=== PATIENT | male | born 1940 | race Caucasian/White ===

== ENCOUNTER 2017-08-16 16:47 | Emergency (ER) | payer MEDICARE, OTHER ==
[2017-08-16] MEDS ORDERED: Alum Hydroxide/Mag Hydroxide 30 ML, Lidocaine 2% 15 ML PO ONE ×2 (19:30)
[2017-08-16] MEDS ORDERED: Pantoprazole 40 MG Tab.CR PO ONE (20:25)
--- NOTE | 2017-08-16 20:25 | EDM.PDOC ---
ED HPI GENERAL MEDICAL PROBLEM - General Stated Complaint: CHEST PAIN Time Seen by Provider: 08/16/17 17:30 Source of Information: Reports: Patient History Limitations: Reports: No Limitations - History of Present Illness INITIAL COMMENTS - FREE TEXT/NARRATIVE: c/o epigastric burn after meals x 1w 2-3h after eating he has burning in epigastrium x 10-30 min, not had dyspepsia in past, no on PPI or H2 shree no f/c/d, no n/v burning ascends up under sternum ocurs sometimes in middle of night dec'd with Tums, 7-up ate lunch at 12:15 PM today, pain at 2:45 PM, better with Sprite, dec'd after arrival here on its own, gone completely after GI cocktail PCP Michael Roman at [facility], last saw 10d ago for annual exam no prior CV problems, had a EKG and u/s and other cardiac screen at [facility] in [place] 1y ago that was neg on prednisone since 2007 for PMR, not able to wean off without severe myalgias EKG here is neg except dec'd T in 1 and L that is likely old has inc'd BUN/creat 29/1.3 witn no comparison CBC, d-dimer, trop, CRP all neg calcium 10.5 and likely inc'd c/w mild dehydration here with NT at [place], no clinical indication for GB u/s, pt reports 2 sibs have had choly Upper Epigastric Pain Score (Numeric/FACES): 8 - Related Data Allergies Allergy/AdvReac Type Severity Reaction Status Date / Time No Known Allergies Allergy Verified 08/16/17 17:40 Home Meds: Home Meds Hydrochlorothiazide/Losartan [Hyzaar 100-25 MG] 1 tab PO DAILY 08/16/17 [History ] Naproxen 500 mg PO DAILY 08/16/17 [History] Omeprazole 20 mg PO DAILY #14 cap.cr 08/16/17 [Rx] amLODIPine [Norvasc] 10 mg PO BEDTIME 08/16/17 [History] predniSONE [Prednisone] 5 mg PO DAILY 08/16/17 [History] Past Medical History Cardiovascular History: Reports: Hypertension Social & Family History - Tobacco Use Smoking Status *Q: Former Smoker Used Tobacco, but Quit: Yes Month Tobacco Last Used: 40yrs ago - Caffeine Use Caffeine Use: Reports: Coffee, Soda - Recreational Drug Use Recreational Drug Use: No ED ROS GENERAL - Review of Systems Review Of Systems: See Below Constitutional: Reports: No Symptoms HEENT: Reports: No Symptoms Respiratory: Reports: No Symptoms Cardiovascular: Reports: No Symptoms Endocrine: Reports: No Symptoms GI/Abdominal: Reports: Abdominal Pain : Reports: No Symptoms Musculoskeletal: Reports: No Symptoms Skin: Reports: No Symptoms Neurological: Reports: No Symptoms Psychiatric: Reports: No Symptoms Hematologic/Lymphatic: Reports: No Symptoms Immunologic: Reports: No Symptoms ED EXAM, GENERAL - Physical Exam Exam: See Below Exam Limited By: No Limitations General Appearance: Alert, WD/WN, No Apparent Distress Ears: Normal External Exam Nose: Normal Inspection, Normal Mucosa, No Blood Throat/Mouth: Normal Inspection, Normal Lips, Normal Voice, No Airway Compromise Head: Atraumatic, Normocephalic Neck: Normal Inspection, Supple, Non-Tender Respiratory/Chest: No Respiratory Distress, Lungs Clear, Normal Breath Sounds, No Accessory Muscle Use, Chest Non-Tender Cardiovascular: Regular Rate, Rhythm, No Edema, No Gallop, No JVD, No Rub, Other (2/6 ESTEVAN at [facility]) GI/Abdominal: Normal Bowel Sounds, Soft, No Organomegaly, No Distention, No Mass , Other (1+ epigastric tender resolved completely after GI cocktail) Back Exam: Normal Inspection, Full Range of Motion, NT Extremities: Normal Inspection, Normal Range of Motion, Non-Tender, Normal Capillary Refill, No Pedal Edema Neurological: Alert, Oriented, CN II-XII Intact, Normal Cognition, No Motor/ Sensory Deficits Psychiatric: Normal Affect, Normal Mood Skin Exam: Warm, Dry, Intact, Normal Color, No Rash Lymphatic: No Adenopathy Course - Vital Signs Last Recorded V/S: Last Vital Signs Temp 36.4 C 08/16/17 17:00 Pulse 50 L 08/16/17 17:00 Resp 14 08/16/17 17:00 BP 163/74 H 08/16/17 17:00 Pulse Ox 100 08/16/17 17:00 - Orders/Labs/Meds Orders: Active Orders 24 hr Category Date Time Status EKG Documentation Completion [RC] ASDIRECTED Care 08/16/17 17:19 Ordered EKG 12 Lead [EK] Routine Ther 08/16/17 17:19 Ordered Labs: Laboratory Tests 08/16/17 08/16/17 08/16/17 Range/Units 17:30 17:30 17:30 WBC 8.8 (4.5-12.0) X10-3/uL RBC 4.53 (4.30-5.75) x10(6)uL Hgb 14.2 (11.5-15.5) g/dL Hct 40.2 (30.0-51.3) % MCV 88.8 (80-96) fL MCH 31.4 (27.7-33.6) pg MCHC 35.3 (32.2-35.4) g/dL RDW 13.5 (11.5-15.5) % Plt Count 261 (125-369) X10(3)uL MPV 8.2 (7.4-10.4) fL Neut % (Auto) 81.5 (46-82) % Lymph % (Auto) 10.5 L (13-37) % Kimble % (Auto) 7.0 (4-12) % Eos % (Auto) 1 (1.0-5.0) % Baso % (Auto) 1 (0-2) % Neut # (Auto) 7.3 (1.6-8.3) # Lymph # (Auto) 0.9 (0.6-5.0) # Kimble # (Auto) 0.6 (0.0-1.3) # Eos # (Auto) 0.0 (0.0-0.8) # Baso # (Auto) 0.0 (0.0-0.2) # D-Dimer, Quantitative < 100 L (100-400) ng/mL Sodium 137 (135-145) mmol/L Potassium 4.4 (3.5-5.3) mmol/L Chloride 99 L (100-110) mmol/L Carbon Dioxide 27 (23-29) mmol/L BUN 29 H (8-23) mg/dL Creatinine 1.3 (0.6-1.3) mg/dL Est Cr Clr Drug Dosing TNP Estimated GFR (MDRD) 54 L (>60) BUN/Creatinine Ratio 22.3 H (9-20) Glucose 118 H (80-116) mg/dL Calcium 10.5 H (8.6-10.2) mg/dL Total Bilirubin 1.2 (0.1-1.3) mg/dL AST 16 (5-27) IU/L ALT 23 (14-26) IU/L Alkaline Phosphatase 48 L (56-112) IU/L Troponin I (0.02-0.06) NG/ML C-Reactive Protein < 0.5 (0.0-1.0) mg/dL Total Protein 7.2 (6.0-8.0) g/dL Albumin 4.1 (3.2-4.6) g/dL Globulin 3.1 g/dL Albumin/Globulin Ratio 1.3 08/16/ Range/Units 17:30 WBC (4.5-12.0) X10-3/uL RBC (4.30-5.75) x10(6)uL Hgb (11.5-15.5) g/dL Hct (30.0-51.3) % MCV (80-96) fL MCH (27.7-33.6) pg MCHC (32.2-35.4) g/dL RDW (11.5-15.5) % Plt Count (125-369) X10(3)uL MPV (7.4-10.4) fL Neut % (Auto) (46-82) % Lymph % (Auto) (13-37) % Kimble % (Auto) (4-12) % Eos % (Auto) (1.0-5.0) % Baso % (Auto) (0-2) % Neut # (Auto) (1.6-8.3) # Lymph # (Auto) (0.6-5.0) # Kimble # (Auto) (0.0-1.3) # Eos # (Auto) (0.0-0.8) # Baso # (Auto) (0.0-0.2) # D-Dimer, Quantitative (100-400) ng/mL Sodium (135-145) mmol/L Potassium (3.5-5.3) mmol/L Chloride (100-110) mmol/L Carbon Dioxide (23-29) mmol/L BUN (8-23) mg/dL Creatinine (0.6-1.3) mg/dL Est Cr Clr Drug Dosing Estimated GFR (MDRD) (>60) BUN/Creatinine Ratio (9-20) Glucose (80-116) mg/dL Calcium (8.6-10.2) mg/dL Total Bilirubin (0.1-1.3) mg/dL AST (5-27) IU/L ALT (14-26) IU/L Alkaline Phosphatase (56-112) IU/L Troponin I < 0.01 L (0.02-0.06) NG/ML C-Reactive Protein (0.0-1.0) mg/dL Total Protein (6.0-8.0) g/dL Albumin (3.2-4.6) g/dL Globulin g/dL Albumin/Globulin Ratio Meds: Medications Discontinued Medications Generic Name Dose Route Start Last Admin Trade Name Freq PRN Reason Stop Dose Admin Al Hydroxide/Mg Hydroxide 30 0 ml 08/16/17 19:30 08/16/17 19:50 ml/ Lidocaine HCl 15 ml PO 08/16/17 19:31 45 ml ONETIME ONE Administration Departure - Departure Time of Disposition: 20:27 Disposition: Home, Self-Care 01 Condition: Good Clinical Impression: GERD (gastroesophageal reflux disease) - Discharge Information Prescriptions: Omeprazole 20 mg PO DAILY #14 cap.cr Instructions: Gastroesophageal Reflux Disease, Adult Referrals: Michael Hinojosa MD [Primary Care Provider] - Additional Instructions: To decrease acid production, take omeprazole 20 mg 1 tab daily for 2 weeks. To neutralize acid, take liquid antacid 1-2 tablespoons 2 hours after meals and bedtime for 1 week, then every 4 hours as needed. See your doctor in 2 days for additional recommendations. Return to ED if you are feeling worse. Call your Physician or Return to Emergency Department if: * Your condition worsens in any way. * You develop fever greater than 100.4. * You have vomitting that does not stop with medications. * You have pain that is not controlled with medications. - My Orders Last 24 Hours: My Active Orders 08/16/17 17:19 EKG Documentation Completion [RC] ASDIRECTED EKG 12 Lead [EK] Routine - Assessment/Plan Last 24 Hours: My Active Orders 08/16/17 17:19 EKG Documentation Completion [RC] ASDIRECTED EKG 12 Lead [EK] Routine
[2017-08-17] MEDS ORDERED: Pantoprazole 40 MG Tab.CR PO SCH (06:00)
== END 2017-08-16 20:35 | disposition home or self-care (01) ==
LOC: FB.ED 16:47
DX: K21.9 Gastro-esophageal reflux disease without esophagitis (principal); I10 Essential (primary) hypertension; Z87.891 Personal history of nicotine dependence
CPT/HCPCS: 36415; 80053; 84484; 85025; 85379; 86140; 93005; 99284; A4217; A9270

== ENCOUNTER 2021-07-20 10:16 | Emergency (ER) | payer MEDICARE, OTHER ==
--- NOTE | 2021-07-20 10:30 | EDM.PDOC ---
ED HPI GENERAL MEDICAL PROBLEM - General Stated Complaint: CHEST PAIN Time Seen by Provider: 07/20/21 10:25 Source of Information: Reports: Patient History Limitations: Reports: No Limitations - History of Present Illness INITIAL COMMENTS - FREE TEXT/NARRATIVE: 81 year-old male who reports had onset of chest pain yesterday morning and it lasted for about an hour he took omeprazole and it seemed to go away. It was a dull pain. It was in the central portion of his chest. Today at about 6:30 this morning. Developed pain in his right/central chest that was a dull pain. He had very large bowel movement following this and that didn't really seem to make his pain better or worse. He tried another omeprazole and also tried some Tums and some acetaminophen and he had no relief of his pain. He does report that walking and moving around seems to make his pain worse and rest seem to improve it. It does not seem to radiate. It was an 8/10 initially and now the pain has gone down to a 1-2/10. He did feel that he had some shortness of breath associated with this. There has been no nausea or vomiting. No cough. No fevers or chills. No hemoptysis. The pain does not seem to radiate. No diaphoresis. There are no other associated signs or symptoms. There are no other modifying factors. 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 Tums.) - Related Data Allergies Allergy/AdvReac Type Severity Reaction Status Date / Time Zzwwmvf-[id number]-KuJ Reductase Allergy Other Verified 07/20/21 10:31 Inhibitor [Jiekwrv-Mlj-Jym Reductase Inhibitor] Home Meds: Home Meds Hydrochlorothiazide/Losartan [Hyzaar 100-25 MG] 1 tab PO DAILY 08/16/17 [History] amLODIPine [Norvasc] 10 mg PO BEDTIME 08/16/17 [History] predniSONE [Prednisone] 5 mg PO DAILY 08/16/17 [History] Calcium Citrate/Vitamin D3 [Calcium Citrate with D Tablet] 1 tab PO DAILY 02/24/18 [History] Fish Oil/[place]-3 Fatty Acids [Fish Oil 1,000 MG] 1,000 mg PO DAILY 02/24/18 [History] Glucosamine/D3/Boswellia Ivonne [Osteo Bi-Flex Tablet] 1 tab PO DAILY 02/24/18 [History] Multivitamin [Multiple Vitamins] 1 tab PO DAILY 02/24/18 [History] Omeprazole 20 mg PO .3 DAYS PER WEEK 02/24/18 [History] Amoxicillin/Potassium Clav [Amox Tr-K Clv 875-125 mg Tab] 1 each PO BID 05/19/18 [History] Past Medical History Cardiovascular History: Reports: Afib, CAD, High Cholesterol, Hypertension, [place] Gastrointestinal History: Reports: Diverticulosis, GERD Musculoskeletal History: Reports: Other (See Below) (Polymyalgia rheumatica on prednisone.) - Past Surgical History Cardiovascular Surgical History: Reports: Coronary Artery Stent GI Surgical History: Reports: Colon, Colonoscopy Neurological Surgical History: Reports: Lumbar Spine (Back fusion) Musculoskeletal Surgical History: Reports: Shoulder Replacement (Right) Social & Family History - Tobacco Use Tobacco Use Status *Q: Unknown Ever Used Tobacco (Nonsmoker.) - Caffeine Use Caffeine Use: Reports: Coffee, Soda - Alcohol Use Alcohol Use History: No - Living Situation & Occupation Living situation: Reports: Occupation: Retired ED ROS GENERAL - Review of Systems Review Of Systems: See Below Constitutional: Denies: Fever, Chills, Malaise HEENT: Denies: Throat Pain, Throat Swelling Respiratory: Denies: Shortness of Breath, Cough Cardiovascular: Reports: Chest Pain, Dyspnea on Exertion. Denies: No Symptoms GI/Abdominal: Denies: Diarrhea, Nausea, Vomiting : Denies: Dysuria, Hematuria Musculoskeletal: Denies: Neck Pain, Shoulder Pain, Arm Pain Skin: Denies: Diaphoresis, Rash Neurological: Denies: Dizziness, Headache Hematologic/Lymphatic: Reports: Easy Bleeding. Denies: Easy Bruising ED EXAM, GENERAL - Physical Exam Exam: See Below Exam Limited By: No Limitations General Appearance: Alert, WD/WN, No Apparent Distress Eye Exam: Bilateral Eye: EOMI, Normal Inspection (Sclera are anicteric.) Ears: Normal External Exam, Hearing Loss Ear Exam: Bilateral Ear: Auricle Normal Nose: Normal Inspection, Normal Mucosa, No Blood Throat/Mouth: Normal Inspection, Normal Lips, Normal Oropharynx, Normal Voice, No Airway Compromise Head: Atraumatic, Normocephalic Neck: Normal Inspection, Supple, Non-Tender Respiratory/Chest: No Respiratory Distress, Lungs Clear, Normal Breath Sounds, No Accessory Muscle Use, Chest Non-Tender Cardiovascular: Normal Peripheral Pulses, No Edema, Irregularly Irregular Peripheral Pulses: 2+: Radial (L), Radial (R) GI/Abdominal: Normal Bowel Sounds, Soft, Non-Tender, No Mass Back Exam: Normal Inspection, Full Range of Motion Extremities: Normal Inspection, Normal Range of Motion, Non-Tender, No Pedal Edema, Normal Capillary Refill Neurological: Alert, Oriented, CN II-XII Intact, Normal Cognition, No Motor/Sensory Deficits Psychiatric: Normal Affect, Normal Mood Skin Exam: Warm, Dry, Intact, Normal Color, No Rash #1 Interpretation EKG Date: 07/20/21 Time: 10:16 Rhythm: A-Fib Rate (Beats/Min): 105 [place]: LAD-Left Truxton Deviation P-Wave: Absent QRS: Normal ST-T: Other (LVH with secondary repolarization abnormality.) QT: Prolonged (Prolonged QTc.) Comparison: Change From Previous EKG (Compared to an EKG performed on 08/16/2017, the atrial fibrillation is new.) EKG Interpretation Comments: Q's in 3 and aVF with possible old inferior infarct. Course - Vital Signs Last Recorded V/S: Last Vital Signs Temp 37.1 C 07/20/21 10:16 Pulse 86 07/20/21 10:16 Resp 20 07/20/21 10:16 BP 102/66 07/20/21 11:18 Pulse Ox 97 07/20/21 10:16 - Orders/Labs/Meds Orders: Active Orders 24 hr Category Date Time Status Chest 1V Frontal [CR] Stat Exams 07/20/21 10:33 Taken Nitroglycerin [Nitrostat] Med 07/20/21 10:54 Active 0.4 mg SL Q5M PRN Sodium Chloride 0.9% [Normal Saline] 1,000 ml Med 07/20/21 11:00 Active IV ASDIRECTED Sodium Chloride 0.9% [Saline Flush] Med 07/20/21 10:33 Active 10 ml FLUSH ASDIRECTED PRN Peripheral IV Insertion Adult [OM.PC] Routine Oth 07/20/21 10:33 Ordered EKG 12 Lead [EK] Routine Ther 07/20/21 10:33 Ordered Medication Orders Sodium Chloride (Normal Saline) 1,000 mls @ 100 mls/hr IV ASDIRECTED ALVAREZ Last Admin: 07/20/21 11:00 Dose: 100 mls/hr Documented by: MATIMAR Nitroglycerin (Nitroglycerin 0.4 Mg Tab.Sl) 0.4 mg SL Q5M PRN PRN Reason: Chest Pain Last Admin: 07/20/21 11:18 Dose: 0.4 mg Documented by: RALEIGH Sodium Chloride (Sodium Chloride 0.9% 10 Ml Syringe) 10 ml FLUSH ASDIRECTED PRN PRN Reason: Keep Vein Open Labs: Laboratory Tests 07/20/21 07/20/21 07/20/21 Range/Units 10:45 10:45 10:45 WBC 9.0 (3.2-10.1) x10-3/uL RBC 4.15 (3.90-5.90) x10(6)uL Hgb 12.8 L (12.9-17.7) g/dL Hct 39.1 (38.3-50.1) % MCV 94.3 (80.8-98.7) fL MCH 30.9 (27.0-33.3) pg MCHC 32.8 (28.7-35.3) g/dL RDW 15.2 H (12.4-15.0) % Plt Count 296 (117-477) x10(3)uL MPV 7.6 (6.7-11.0) fL Add Manual Diff Yes Neutrophils % (Manual) 89 H (46-82) % Band Neutrophils % 2 (0-6) % Lymphocytes % (Manual) 4 L (13-37) % Monocytes % (Manual) 5 (4-12) % Anisocytosis Rare Sodium 140 (135-145) mmol/L Potassium 4.1 (3.5-5.3) mmol/L Chloride 105 (100-110) mmol/L Carbon Dioxide 25 (21-32) mmol/L BUN 52 H (7-18) mg/dL Creatinine 1.8 H (0.70-1.30) mg/dL Est Cr Clr Drug Dosing TNP Estimated GFR (MDRD) 36 L (>60) BUN/Creatinine Ratio 28.9 H (9-20) Glucose 154 H (80-116) mg/dL Calcium 8.9 (8.6-10.2) mg/dL Magnesium 1.8 (1.8-2.5) mg/dL Total Bilirubin 0.5 (0.1-1.3) mg/dL AST 14 (5-25) IU/L ALT 22 (12-36) U/L Alkaline Phosphatase 89 (56-112) IU/L Troponin I 589.4 H* (4.0-60.3) pg/mL Total Protein 5.6 L (6.0-8.0) g/dL Albumin 3.1 L (3.2-4.6) g/dL Globulin 2.5 g/dL Albumin/Globulin Ratio 1.2 SARS-CoV-2 RNA (GIULIANA) (NEGATIVE) 07/20/21 07/20/21 Range/Units 12:15 16:15 WBC (3.2-10.1) x10-3/uL RBC (3.90-5.90) x10(6)uL Hgb (12.9-17.7) g/dL Hct (38.3-50.1) % MCV (80.8-98.7) fL MCH (27.0-33.3) pg MCHC (28.7-35.3) g/dL RDW (12.4-15.0) % Plt Count (117-477) x10(3)uL MPV (6.7-11.0) fL Add Manual Diff Neutrophils % (Manual) (46-82) % Band Neutrophils % (0-6) % Lymphocytes % (Manual) (13-37) % Monocytes % (Manual) (4-12) % Anisocytosis Sodium (135-145) mmol/L Potassium (3.5-5.3) mmol/L Chloride (100-110) mmol/L Carbon Dioxide (21-32) mmol/L BUN (7-18) mg/dL Creatinine (0.70-1.30) mg/dL Est Cr Clr Drug Dosing Estimated GFR (MDRD) (>60) BUN/Creatinine Ratio (9-20) Glucose (80-116) mg/dL Calcium (8.6-10.2) mg/dL Magnesium (1.8-2.5) mg/dL Total Bilirubin (0.1-1.3) mg/dL AST (5-25) IU/L ALT (12-36) U/L Alkaline Phosphatase (56-112) IU/L Troponin I 619.7 H* (4.0-60.3) pg/mL Total Protein (6.0-8.0) g/dL Albumin (3.2-4.6) g/dL Globulin g/dL Albumin/Globulin Ratio SARS-CoV-2 RNA (GIULIANA) Negative (NEGATIVE) Meds: Medications Generic Name Dose Route Start Last Admin Trade Name Freq PRN Reason Stop Dose Admin Sodium Chloride 1,000 mls @ 100 mls/hr 07/20/21 11:00 07/20/21 11:00 Normal Saline IV 100 mls/hr ASDIRECTED ALVAREZ Administration Nitroglycerin 0.4 mg 07/20/21 10:54 07/20/21 11:18 Nitroglycerin 0.4 Mg Tab.Sl SL 0.4 mg Q5M PRN Administration Chest Pain Sodium Chloride 10 ml 07/20/21 10:33 Sodium Chloride 0.9% 10 Ml Syringe FLUSH ASDIRECTED PRN Keep Vein Open Discontinued Medications Generic Name Dose Route Start Last Admin Trade Name Freq PRN Reason Stop Dose Admin Aspirin 324 mg 07/20/21 10:35 07/20/21 10:57 Aspirin 81 Mg Tab.Chew PO 07/20/21 10:36 324 mg ONETIME ONE Administration Sodium Chloride 500 mls @ 999 mls/hr 07/20/21 11:35 07/20/21 11:35 Normal Saline IV 07/20/21 12:05 999 mls/hr .BOLUS ONE Administration - Radiology Interpretation Free Text/Narrative:: Portable chest x-ray shows no acute disease per my read. - Re-Assessments/Exams Free Text/Narrative Re-Assessment/Exam: 07/20/21 11:20: Patient is awake and alert. He is rating his pain as a 1-2/10. His troponin is about 590. His creatinine is 1.8. The remainder of his labs are reassuring. IV normal saline is being established and the patient has received aspirin 324 mg orally. I have also ordered nitroglycerin to be given sublingually. Patient has taken his Eliquis this morning. With his chest pain and his elevated troponin and his history of coronary artery disease, he appears to be having an NSTEMI and will need cardiology specially services which are not available at [facility]. I will discuss this with the patient but he is followed by the [facility] system. We will continue close monitoring of the patient. 07/20/21 11:26: I discussed the above with the patient and his and they would want me to discuss the case with the doctors at [facility] in [place]. 07/20/21 11:58: After 1 sublingual nitroglycerin, the patient is chest pain- free. His blood pressure did drop slightly to 84 systolic. I am giving him a fluid bolus of normal saline 500 mL. He remains asymptomatic and remained chest pain-free and his blood pressure has already come up to the 90-100 systolic range. I discussed the patient's case with Dr. Orozco, hospitalist at [facility] in [place], and he has agreed to accept the patient in transfer. The patient will need to be transferred via ALS ambulance to [facility] in [place] for direct admission. We are waiting bed placement. For now, we will continue to closely monitor the patient. 07/20/21 16:09: We are still awaiting bed placement from [facility] in [place]. The nurse called and they are still awaiting a bed. The patient remains chest pain- free. He remains hemodynamically stable thus far. I will repeat his troponin as it is coming up on 6 hours after the initial troponin done earlier today. We will continue to monitor the patient. 07/20/21 17:00: Repeat troponin is unchanged. The patient remains chest pain- free and hemodynamically stable. There is now a bed available at [facility] in [place] and [facility] ambulance will be able to transport the patient but it will be about 40-45 minutes. We have informed the patient and his . Departure - Departure Time of Disposition: 17:55 Disposition: DC/Tfer to Acute Hospital 02 Reason for Transfer *Q: Other (Need for cardiology specially services which are not available at [facility].) Condition: Fair Clinical Impression: Non-STEMI (non-ST elevated myocardial infarction) Referrals: Michael Hinojosa MD [Primary Care Provider] - Sepsis Event Note (ED) - Focused Exam Vital Signs: Vital Signs Temp Pulse Resp BP BP Pulse Ox 07/20/21 11:18 102/66 07/20/21 10:16 37.1 C 86 20 117/66 97 - My Orders Last 24 Hours: My Active Orders 07/20/21 10:33 Chest 1V Frontal [CR] Stat Sodium Chloride 0.9% [Saline Flush] 10 ml FLUSH ASDIRECTED PRN Peripheral IV Insertion Adult [OM.PC] Routine EKG 12 Lead [EK] Routine 07/20/21 10:54 Nitroglycerin [Nitrostat] 0.4 mg SL Q5M PRN 07/20/21 11:00 Sodium Chloride 0.9% [Normal Saline] 1,000 ml IV ASDIRECTED - Assessment/Plan Last 24 Hours: My Active Orders 07/20/21 10:33 Chest 1V Frontal [CR] Stat Sodium Chloride 0.9% [Saline Flush] 10 ml FLUSH ASDIRECTED PRN Peripheral IV Insertion Adult [OM.PC] Routine EKG 12 Lead [EK] Routine 07/20/21 10:54 Nitroglycerin [Nitrostat] 0.4 mg SL Q5M PRN 07/20/21 11:00 Sodium Chloride 0.9% [Normal Saline] 1,000 ml IV ASDIRECTED
[2021-07-20] MEDS ORDERED: Sodium Chloride 0.9% 10 ML Syringe FLUSH PRN (10:33)
[2021-07-20] MEDS ORDERED: Aspirin 81 MG Tab.Chew PO ONE (10:35)
[2021-07-20] MEDS ORDERED: Nitroglycerin 0.4 MG Tab.SL SL PRN (10:54)
[2021-07-20] MEDS ORDERED: Sodium Chloride 0.9% 1,000 ML IV SCH (11:00)
[2021-07-20] MEDS ORDERED: Sodium Chloride 0.9% 500 ML IV ONE (11:35)
--- NOTE | 2021-07-22 12:23 | CR ---
CHEST ONE VIEW INDICATION: Chest pain to the right of center, mild shortness of breath. FINDINGS: An AP upright portable view of the chest 07/20/21 was obtained - no comparisons. The heart did not appear grossly enlarged. The aorta is tortuous with calcification in the arch. Overlying EKG leads are noted. An active infiltrate or effusion was not identified. Reverse shoulder arthroplasty is noted on the right. Degenerative changes and probable impingement are noted on the left at the shoulder joint. IMPRESSION: 1. No acute process. 2. ASD aorta. MTDD
--- OUTSIDE RECORDS SUMMARY | 2021-07-25 10:49 | XMSREPORT ---
:1940 Author Organization [facility] s Address [facility] [place] [address] Care Team Providers Name Role Phone Alessia Hinojosa MD Primary Care Provider Alessia Hinojosa MD Attributed Provider Reason for Referral (Routine) Status Reason Specialty Diagnoses / Procedures Referred By Karly newton To Contact Contact New Request Diagnoses Non-rheumatic mitral regurgitation Ted Wallace MD [address] [place] [phone] Scheduling Instructions This is an electronic referral. (Routine) Status Reason Specialty Diagnoses / Procedures Referred By Karly newton To Contact Contact New Request Diagnoses Non-rheumatic mitral regurgitation Rachel Guerra PA-C [address] [place] [address] Scheduling Instructions This is an electronic referral. Reason for Visit Auth/Cert Status Reason Specialty Diagnoses / Procedures Referred By Samia winston Referred To Contact Encounter Details Date Type Department Care Team Description 07/20/2021 - Hospital Encounter [facility], [facility] Procedure NSTEMI (non-ST 07/24/2021 [facility] See, Cristian Rodriguez MD [address] [place], [place] [id number] elevated myocardial SURG [facility] Ted Wallace MD [address], [place] [address] [phone] infarction) (FORMERLY [facility]) [address] Neeraj Orozco MD [address] [place] [address] [phone] [place] [address] Allergies Active Allergy Reactions Severity Noted Date Comments Hmg-Coa-R Inhibitors Statin Contraindication - 014 Myalgia Intolerance documented as of this encounter (statuses as of 07/24/2021) Medications Medication Sig Dispensed Refills Start End Status Date Date glucosamine-chondroiti Take 1 capsule 0 Active n (JOINT FLEX) 500-400 by mouth 1 mg capsule time per day Multiple Take 1 tablet 0 Active Vitamins-Minerals by mouth 1 (MULTIVITAMIN time per day THERAPEUTIC WITH MINERALS) tablet apixaban (ELIQUIS) 5 Take 5 mg by 0 Active MG tablet mouth 2 times a day acetaminophen (TYLENOL Take 650 mg by 0 Active ARTHRITIS) 650 mg CR mouth Every 8 tablet hours as needed albuterol HFA 2 puffs Every 0 Ac tive (PROVENTIL,PROAIR,VENT 4 hours as AVIS) 108 (90 BASE) needed mcg/ACT AERS losartan 100 mg Take 1 tablet 90 tablet 3 12/27/19 Active tabletIndications: (100 mg) by 21 Essential hypertension mouth 1 time per day omeprazole (PRILOSEC) Take 1 capsule 90 capsule 3 12/27/19 Active 20 mg (20 mg) by 21 capsuleIndications: mouth 1 time a Gastroesophageal day in the reflux disease without morning esophagitis predniSONE 5 mg Take 1 tablet 90 tablet 3 12/27/19 Active tabletIndications: (5 mg) by 21 Osteoarthritis, mouth 1 time generalized per day predniSONE 1 mg Take 1 tablet 90 tablet 3 12/27/19 Active tabletIndications: (1 mg) by 21 Osteoarthritis, mouth 1 time generalized per day 6 mg a day tiotropium-olodaterol INHALE 2 0 01/30/20 Active (STIOLTO RESPIMAT) INHALATIONS BY 21 2.5-2.5 mcg/puff MOUTH EVERY 24 inhaler HOURS FOR BREATHING ferrous sulfate (65 MG TAKE ONE 0 06/13/20 Active FE PER 325 MG TABLET) TABLET BY 21 325 mg tablet MOUTH EVERY DAY methylPREDNISolone Take by mouth 0 Active (MEDROL DOSEPAK) 4 MG 1 time per day tablet Take as directed on package. gabapentin (NEURONTIN) Take 1 capsule 60 capsule 0 07/15/20 1 Active 300 mg (300 mg) by capsuleIndications: mouth 2 times Chronic radicular low a day back pain oxyCODONE (OXY-IR) 5 Take 1 tablet 12 tablet 0 07/15/20 Active mg tablet (immediate (5 mg) by release)Indications: mouth every 6 Chronic radicular low hours as back pain needed for severe pain aspirin (ECOTRIN LOW Take 1 tablet 4 tablet 0 07/25/2007/29 Active STRENGTH) 81 MG (81 mg) by enteric coated mouth 1 time tabletIndications: per day for 4 Coronary artery days Continue disease involving till 07/29 [place] heart without given he is on angina pectoris, Eliquis as unspecified vessel or well. lesion type clopidogrel (PLAVIX) Take 1 tablet 365 tablet 0 07/25/20 Active 75 mg (75 mg) by tabletIndications: mouth 1 time Coronary artery per day CAD disease involving S/P stent [place] heart without placement. angina pectoris, unspecified vessel or lesion type metoprolol tartrate 75 Take 75 mg by 90 tablet 0 07/24/20 Active MG TABSIndications: mouth 2 times 21 Coronary artery a day Hold for disease involving SBP<=90 OR emmon[place] heart without DBP<=60 heart angina pectoris, rate <=55 unspecified vessel or lesion type hydroCHLOROthiazide 25 Take 1 tablet 90 tablet 3 12/27/1924/11 Discontinued mg tabletIndications: (25 mg) by (Stop Taking at Essential hypertension mouth 1 time Discharge) per day documented as of this encounter (statuses as of 07/24/2021) Active Problems Problem Noted Date Non-rheumatic mitral regurgitation 07/22/2021 NSTEMI (non-ST elevated myocardial infarction) 021 Coronary artery disease involving [place] heart without angina pectoris 01/11/2020 Arthritis of right shoulder region 08/30/2018 Status post reverse total shoulder replacement, right 08/30/2018 Chronic renal failure in pediatric patient, stage 3 (m oderate) 08/10/2018 Osteoarthritis, generalized 02/07/2016 PMR (polymyalgia rheumatica) 08/20/2009 Hyperlipidemia 09/14/2008 Benign prostatic hyperplasia without lower urinary tra ct symptoms 09/14/2008 Essential hypertension 09/14/2008 Diverticulosis of large intestine documented as of this encounter (statuses as of 07/24/2021) Resolved Problems Problem Noted Date Resolved Date Routine general medical examination at a health care 011 09/15/2013 facility Anemia 07/16/2011 07/30/2017 Special screening for malignant neoplasm of prostate 011 07/30/2017 Primary localized osteoarthrosis, lower leg 09/14/2008 09/15/2013 documented as of this encounter (statuses as of 07/24/2021) Immunizations Name Administration Dates Next Due Influenza Trivalent w/preserv 07/15/2011, 07/12/2010, 08/02 FLU VACCINE HIGH DOSE 65YR+(Fluzone) 07/04/2013 H1N1 Vaccine 09/20/2009 HEP B VACCINE 09/29/2006, 08/24/2006 INFLUENZA HIGH DOSE (FLUZONE) 65 YEARS 06/26/2020, , 07/08/2018, AND UP 07/08/2017, 07/06/2015, 07/04/2014 INFLUENZA SINGLE DOSE 0.5ML 6 MONTHS 06/13/2021, 07/17/2016 AND UP Moderna COVID-19 Vaccine 12/04/2020, 11/06/2020 Pneumococcal Conj PCV13 07/06/2015 Pneumococcal Polysaccharide PPSV23 02/06/2009 TD,not adsorbed 02/06/2009 TDAP 02/07/2016, 08/24/2006 Typhoid,ViCPs (Typhim) 08/24/2006 Zoster Live(Zostavax) 08/03/2008 Zoster Recombinant (Shingrix) 05/09/2019, 02/01/2019, 2018 documented as of this encounter Social History Tobacco Use Types Packs/Day Years Used Date Former Smoker Cigarettes 1 8 Quit: 10/05/18 73 Smokeless Tobacco: Never Used Alcohol Use Standard Drinks/Week Comments Not Currently 1 (1 standard drink = 0.6 oz pure alcoho l) one beer daily Alcohol Habits Answer Date Recorded How often do you have a drink containing alcohol? Never 07/21/2021 How many drinks containing alcohol do you have on a typical Not asked day when you are drinking? How often do you have six or more drinks on one occasion? 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 documented as of this encounter Last Filed Vital Signs Vital Sign Reading Time Taken Comments Blood Pressure 116/75 07/24/2021 10:48 AM CDT Pulse 90 07/24/2021 10:48 AM CDT Temperature 36.4 C (97.5 F) 07/24/2021 10:48 AM CDT Respiratory Rate 16 07/24/2021 10:48 AM CDT Oxygen Saturation 96% 07/24/2021 10:48 AM CDT Inhaled Oxygen Concentration - - Weight 68.9 kg (151 lb 14.4 oz) 07/22/2021 7:04 AM CDT Height 177.8 cm (5' 10") 07/20/2021 7:39 PM CDT Body Mass Index 21.8 07/20/2021 7:39 PM CDT documented in this encounter Functional Status Functional Status Response Date of Assessment Is the person deaf or does he/she have serious difficulty No 08/27/2018 hearing? Is this person blind or does he/she have difficulty No 08/27/2018 seeing even when wearing glasses? Do you have difficulty with walking, balance, climbing No 01/11/2020 stairs, or had a fall in the last 3 months? Does the patient have difficulty dressing or bathing? No 08/30/2018 Because of a physical, mental, or emotional condition; No 08/30/2018 does this person have difficulty doing errands alone such as visiting a doctor's office or shopping? Cognitive Status Response Date of Assessment Because of a physical, mental, or emotional condition; No 08/30/2018 does this person have serious difficulty concentrating, remembering, or making decisions? documented as of this encounter Discharge Summaries Not on filedocumented in this encounter Discharge Instructions Jocelyne Mcleod RN - 07/20/2021 Discharge Instructions for Heart Failure The heart is a muscle that pumps oxygen-rich blood to all parts of the body. When you have heart failure, the heart is not able to pump as well as it should. Blood and fluid may back up into the lungs (congestive heart failure). Some parts of the body dont get enough oxygen-rich blood to work normally. These problems lead to the symptoms of heart failure. Heart failure can occur due to an injury to the heart or from natural processes.You can control symptoms of heart failure with some lifestylechanges and by following your doctor's advice. Activity Ask your healthcare provider about an exercise program. You can benefit from simple activities such as walking or gardening. Exercising most days of the week can make you feel better. Don't be discouraged if your progress is slow at first. Rest as needed. Stop activity if you get symptoms such as chest pain, lightheadedness, or significant shortness of breath. Find activities that you enjoy, such as brisk walking, dancing, swimming, or gardening. These will help you stay active and strengthen your heart. Ask your healthcare provider about cardiac rehab. This is a program that helps you to exercise safely. Diet Follow a heart healthy diet. And make sure to limit the salt (sodium) in your diet. Salt causes yourbody to hold water. This makes your heart work harder as there is more fluid for the heart to pump. Limit your salt as directed by your healthcare provider by doing the following : Limit canned, dried, packaged, and fast foods. Don't add salt to your food. Season foods with herbs instead of salt. Watch how much liquids you drink. Drinking too much can make heart failure worse. Talk with your healthcare provider about how much you should drink each day. Limit the amount of alcohol you drink. It may harm your heart. Women should have no more than 1 drink a day. Men should have no more than 2 a day. When you eat out, ask that your meals have no added salt. Tobacco If you smoke, it's soto to quit. Smoking increases your chances of having a heart attack by harming the blood vessels that provide oxygen to your heart. This makes heart failure worse. Quitting smoking is the number one thing you can do to improve your health. Enroll in a stop-smoking program to improve your chances of success. Talk with your healthcare providerabout medicines or nicotine replacement therapy. Ask your healthcare provider about smoking cessation support groups. Medicine Take your medicines exactly as prescribed. Learn the names and purpose of each of your medicines. Keep an accurate medicine list and current dosages with you at all times. Don't skip doses. If you nicolasa dose of your medicine, take it as soon as you remember. If you miss a dose andit's almost time for your next dose, just wait and take your next dose at the normal time. Don't take a double dose. Ifyou are unsure, call your doctor's office. Make sure not to mix up your medicines or forget what you've taken the same day. Refill your prescriptions before you run out of medicine. Talk with your healthcare provider if you have trouble with the cost of your medicines. Weight monitoring Weigh yourself every day. A sudden weight gain can mean your heart failure is getting worse. Weigh yourself at the same time of day and in the same kind of clothes. Ideally, weigh yourself first thing in the morning after you empty your bladder, but before you eat breakfast. Your healthcare provider will show you how to track your weight. He or she will also tell you when you should call if you have a sudden, unexpected increase in your weight. In general, your healthcare provider may ask you to report if your weight goes up by more than 2 pounds (0.9 kg) in 1 day,5 pounds (2.27 kg) in 1 week, or whatever weight gain you were told by your doctor. This is a sign that you are retaining more fluid than you should be. Clues to weight gain include checking your ankles for swelling, or noticing you are short of breath when you lie down. Follow-up care Have follow-up appointment. Depending on the type and severity of heart failure you have, you may need follow-up as early as 7 days from hospital discharge. Keep appointments for checkups and lab teststhat are needed to check your medicines and condition. Recognize that your health and even survival depend on you following your medical recommendations. Symptoms Heart failure can cause a variety of symptoms, including: Shortness of breath Trouble breathing at night, especially when you lie down Swelling in the legs and feet or in the belly (abdomen) Becoming easily tired Irregular or rapid heartbeat Weakness or lightheadedness Swelling of the neck veins It's important to know what to do if symptoms get worse or if you develop signs of worsening heart failure. Keep track of how you feel each day. Report any changes to your healthcare provider. When to call your healthcare provider Call your healthcare provider right away if you have any of these signs of worsening heart failure: Sudden weight gain (more than 2 pounds in 1 day or 5pounds in 1 week, or whatever weight gain you were told to report by your doctor) Trouble breathing not related to being active New or increased swelling of your legs or ankles Swelling or pain in your abdomen Breathing trouble at night (waking up short of breath, needing more pillows to breathe) Frequent coughing that doesn't go away Feeling much more tired than usual Call 911 right away if you have: Severe shortness of breath, such that you can't catch your breath even whileresting Severe chest pain that does not resolve with rest or nitroglycerin [place], foamy mucus with cough and shortness of breath An ongoing rapid or irregular heartbeat Passing out or fainting Stroke symptoms such as sudden numbness or weakness on one side of your face, arm, or leg or sudden confusion, trouble speaking or vision changes Ivan last reviewed this educational content on 01/03/201919993775-2877 [employer]. All rights reserved. This information is not intended as a substitute for professional medical care. Always follow your healthcare professional's instructions. documented in this encounter Medications at Time of Discharge Medication Sig Dispensed Refills Start Date End Date aspirin (ECOTRIN LOW Take 1 tablet (81 4 tablet 0 07/25/20 21 07/29/2021 STRENGTH) 81 MG enteric mg) by mouth 1 coated tabletIndications: time per day for 4 Coronary artery disease days Continue till involving [place] heart 07/29 given he is without angina pectoris, on Eliquis as unspecified vessel or well. lesion type clopidogrel (PLAVIX) 75 mg Take 1 tablet (75 365 tablet 0 tabletIndications: mg) by mouth 1 Coronary artery disease time per day CAD involving [place] heart S/P stent without angina pectoris, placement. unspecified vessel or lesion type metoprolol tartrate 75 MG Take 75 mg by 90 tablet 0 021 TABSIndications: Coronary mouth 2 times a artery disease involving day Hold for [place] heart without SBP<=90 OR DBP<=60 angina pectoris, heart rate <=55 unspecified vessel or lesion type methylPREDNISolone (MEDROL Take by mouth 1 0 DOSEPAK) 4 MG tablet time per day Take as directed on package. gabapentin (NEURONTIN) 300 Take 1 capsule 60 capsule 0 07/1508/14/2021 mg capsuleIndications: (300 mg) by mouth Chronic radicular low back 2 times a day pain oxyCODONE (OXY-IR) 5 mg Take 1 tablet (5 12 tablet 0 2020 tablet (immediate mg) by mouth every release)Indications: 6 hours as needed Chronic radicular low back for severe pain pain ferrous sulfate (65 MG FE TAKE ONE TABLET BY 0 PER 325 MG TABLET) 325 mg MOUTH EVERY DAY tablet tiotropium-olodaterol INHALE 2 0 01/29/2021 (STIOLTO RESPIMAT) 2.5-2.5 INHALATIONS BY mcg/puff inhaler MOUTH EVERY 24 HOURS FOR BREATHING losartan 100 mg Take 1 tablet (100 90 tablet 3 12/26/2020 tabletIndications: mg) by mouth 1 Essential hypertension time per day omeprazole (PRILOSEC) 20 Take 1 capsule (20 90 capsule 3 mg capsuleIndications: mg) by mouth 1 Gastroesophageal reflux time a day in the disease without morning esophagitis predniSONE 5 mg Take 1 tablet (5 90 tablet 3 12/26/2020 tabletIndications: mg) by mouth 1 Osteoarthritis, time per day generalized acetaminophen (TYLENOL Take 650 mg by 0 ARTHRITIS) 650 mg CR mouth Every 8 tablet hours as needed albuterol HFA 2 puffs Every 4 0 (PROVENTIL,PROAIR,VENTOLIN hours as needed ) 108 (90 BASE) mcg/ACT AERS apixaban (ELIQUIS) 5 MG Take 5 mg by mouth 0 tablet 2 times a day glucosamine-chondroitin Take 1 capsule by 0 (JOINT FLEX) 500-400 mg mouth 1 time per capsule day Multiple Vitamins-Minerals Take 1 tablet by 0 (MULTIVITAMIN THERAPEUTIC mouth 1 time per WITH MINERALS) tablet day predniSONE 1 mg Take 1 tablet (1 90 tablet 3 12/26/2020 tabletIndications: mg) by mouth 1 Osteoarthritis, time per day 6 mg generalized a day documented as of this encounter Progress Notes Ted Wallace MD - 07/23/2021 3:41 PM CDT Images from the original note were not included. DAILY PROGRESS NOTE Michael Bacon is a 81yr old male admitted on 07/20/2021 7:17 PM. Impression / Plan 1.NSTEMI type 1 status post PCI to proximal LAD. Continue beta shree. He is on Plavix. Will continue aspirin till 07/29 then stop as he is on Eliquis. 2.Hypertension. Continue beta shree and ARB. Continue PRN medication 3.Atrial fibrillation. Rate controlled. Continue BB and heparin. After cath will resume 4.Episode of fever. Will obtain blood culture, CXR and UA. 5.PMR. Continue prednisone 6.Mitral regurgitation. There is severe MR on VIJAY. No PFO and no thrombus. Follow up with cardiologyoutpatient. 7.Chronic kidney disease. Creatinine is close to baseline 8.Code status. Full Code 9.DVT prophylaxis. Continue Eliquis. Interval History HPI Tele revealed AF rate controlled He had an episode of fever last night He underwent PCI to proximal LAD He is undergoing VIJAY and no evidence of thrombus. There is severe MR Review of Systems Review of Systems Constitutional: Positive for fever. Negative for chills. Respiratory: Negative for cough and shortness of breath. Cardiovascular: Negative for chest pain and leg swelling. Neurological: Negative for dizziness and headaches. Physical Exam Vital Signs: Temp: 97.1 F (36.2 C) | BP: 114/72 | Pulse: 85 | Resp: 17 | Pain Ratin (out of 10) | Weight: 68.9 kg (151 lb 14.4 oz) | O2 Device: NC - no humidity O2 Flow Rate (L/min): 2 l/min | SpO2: 93 % Maximum Temperatures (last 24 hours) Temperature Maximum Max Temp 101.1 F (38.4 C) Intake and Output: 07/22 0700 - 07/23 0659 In: - Out: 100 [Urine:100] Physical Exam Constitutional: General: He is not in acute distress. Appearance: Normal appearance. He is not ill-appearing. HENT: Head: Normocephalic and atraumatic. Eyes: General: Right eye: No discharge. Left eye: No discharge. Cardiovascular: Rate and Rhythm: Normal rate. Rhythm irregular. Pulmonary: Effort: Pulmonary effort is normal. Breath sounds: Normal breath sounds. Abdominal: General: Abdomen is flat. Bowel sounds are normal. There is no distension. Palpations: Abdomen is soft. Tenderness: There is no abdominal tenderness. There is no guarding. Musculoskeletal: General: Normal range of motion. Skin: General: Skin is warm. Neurological: Mental Status: He is alert and oriented to person, place, and time. Psychiatric: Mood and Affect: Mood normal. Behavior: Behavior normal. Labs Labs (Last day) 07/23/21842 - 07/23/21842 CBC 07/23/21 08 CBC WBC 4.0-11.0 (K/uL) 8.6 RBC 4.40-5.80 (M/uL) 4.22 Hemoglobin 13.5-17.5 (g/dL) 13.2 Hematocrit 40.0-50.0 (%) 39.6 MCV 80.0-98.0 (fL) 93.8 MCH 25.5-34.0 (pg) 31.3 MCHC 31.5-36.5 (g/dL) 33.3 RDW-CV 11.5-15.5 (%) 14.8 RDW-SD 35.5-50.0 (fl) 50.8 Platelet Count 140-400 (K/uL) 181 MPV 8.5-12.0 (fL) 9.7 07/23/21842 - 07/23/21 08 CHEMISTRY 07/23/21842 CHEMISTRY Glucose 70-99 (mg/dL) 83 Sodium 136-145 (meq/L) 136 Potassium 3.5-5.1 (meq/L) 3.9 Chloride 98-109 (meq/L) 105 CO2 20-29 (meq/L) 23 Anion Gap with K 6-20 (meq/L) 12 BUN 6-22 (mg/dL) 35 Creatinine 0.70-1.30 (mg/dL) 1.22 BUN/Creatinine Ratio 10.0-25.0 28.7 Calcium 8.5-10.5 (mg/dL) 8.9 eGFR >=60 (mL/min/1.73m2) 69 eGFR Non- >=60 (mL/min/1.73m2) 57 07/23/21842 - 07/23/21842 DIFFERENTIAL 07/23/21842 DIFFERENTIAL Seg Neut Absolute 1.8-8.0 (K/uL) 5.9 Lymphocytes Absolute 0.8-4.1 (K/uL) 1.0 Monocytes Absolute 0.0-1.0 (K/uL) 1.3 Eosinophils Absolute 0.0-0.7 (K/uL) 0.1 Basophil Absolute 0.0-0.2 (K/uL) 0.1 Immature Granulocyte Absolute 0.00-0.06 (K/uL) 0.16 Neutrophils Percent (%) 69.0 Neutrophils Abs. (Segs and Bands) (/uL) 5,900 Lymphocytes Percent (%) 11.7 Monocytes Percent (%) 15.1 Immature Granulocyte Percent (%) 1.9 Eosinophils Percent (%) 1.6 Basophil Percent (%) 0.7 Nucleated RBC (/100 WBC's) 0 07/22/21 1542 - 07/22/21 1542 ECG/EKG 07/22/21 1542 ECG/EKG EKG WAVEFORM Atrial fibrillation with premature ventricular or aberrantly conducted complexes Abnormal ECG When compared with ECG of 22-JUL-2021 13:43, No significant change was found Ventricular Rate: 74 BPM QRS Duration: 84 ms Q-T Interval: 410 ms QTc Calculation(Bazett): 455 ms Calculated R Anabel: -26 degrees Calculated T Anabel: 74 degrees 07/23/21 0843 - 07/23/21 0843 OTHER 07/23/21 0843 OTHER Age (Years) 81 Medical Decision making Medical Decision Making Rachel Brasher PA-C - 07/22/2021 2:49 PM CDT Cardiology Progress Note Patient Name: Michael Bacon Admit Date: 07/20/2021 [facility]: [id number] Assessment and Plan Active Problems: NSTEMI (non-ST elevated myocardial infarction) (HCC) Non-rheumatic mitral regurgitation Resolved Problems: * No resolved hospital problems. * Impression 81 y.o. male with PMHx significant for CAD s/p historical stenting, paroxysmal a fib on Eliquis, HTN, and polymyalgia rheumatica who presented to outside ER with mid sternal chest pain. Troponin elevated at 0.8. LHC completed which resulted in NADIR to proximal LAD. LHC revealed patent stent in mid LAD,90% proximal RCA lesion which was not amenable to PCI, and moderate 50% non obstructive lesion to OM1. ECHO completed showing EF 60% and severe MR with possible flail motion of mitral leaflets. ECHO also showed moderate to markedly increased LV wall thickness. Plan: 1. NSTEMI s/p NADIR to proximal LAD - Aspirin 81 mg daily through 07/29/21, then discontinue due to triple therapy - Plavix 75 mg daily x 12 months - Continue Eliquis due to a fib - Cardiac rehab - Telemetry monitoring - No statin due to intolerance - Sublingual Nitro PRN 2. Severe MR - We will evaluate more closely with VIJAY; plan to complete this tomorrow. Keep patient NPO at midnight - Discussed with Interventional Cardiology; since patient is optimized in terms of fluid status, will plan for him to be seen by structural heart team as an outpatient if MR is severe on VIJAY Consent: VIJAY per Dr. Carmona Risks and benefits of VIJAY were discussed with the patient and included discussion about change in heart rhythm, breathing difficulty, infection of heart valves, reaction to sedatives and bleeding. Rarely the probe may perforate the esophagus. Patient understands that complications are rare and that pre cautions are taken to minimize risks. The patient agrees and wishes to proceed. Is this a NSTEMI patient: Yes, AMI Quality Measures Aspirin at Discharge - Yes Evaluation of LV Systolic Function documented during this admission - Yes P2Y12 inhibitor prescribed at discharge (including medically treated NSTEMI) - Yes Beta Shree at Discharge - Yes ZAN-I or ARB for LVSD at Discharge (EF < 40%) - Not indicated EF > 40% High Intensity Statin at Discharge - Contraindicated due to myalgias Cardiac Rehab Referral on discharge - Yes Cardiology Follow-Up Appointment Indication: NSTEMI Timeframe:6 weeks Cardiac Medications: -Losartan 100 mg daily -Aspirin 81 mg daily -Eliquis 5 mg BID -Plavix 75 mg daily -Metoprolol tartrate 50 mg BID Code Status: Full Code Patient was interviewed/examined and plan was coordinated with Dr. Carmona I appreciate the opportunity to be involved in this patient's care. Cardiology will continue to follow. Rachel Guerra PA-C Cardiology Pager #[phone] [facility], [place] Interval History Al reports that he is doing okay after [facility]. He reports resolution of chest pain. He has no complaints at this time. Current Vital Signs Temp: 97.4 F (36.3 C) BP: 158/108 Pulse: 82 O2 Device: Room Air Resp: 16 Pain Ratin (out of 10) Weight: 68.9 kg (151 lb 14.4 oz) SpO2: 100 % Physical Exam Physical Exam Vitals reviewed. Constitutional: General: He is not in acute distress. Appearance: Normal appearance. He is well-developed. He is not diaphoretic. HENT: Head: Normocephalic and atraumatic. Right Ear: External ear normal. Left Ear: External ear normal. Nose: No congestion. Mouth/Throat: Mouth: Mucous membranes are moist. Pharynx: Oropharynx is clear. Neck: Vascular: No JVD. Cardiovascular: Rate and Rhythm: Normal rate. Rhythm irregular. Heart sounds: S1 normal and S2 normal. Murmur heard. Pulmonary: Effort: Pulmonary effort is normal. No respiratory distress. Breath sounds: Normal breath sounds. No wheezing. Abdominal: General: Abdomen is flat. Palpations: Abdomen is soft. Tenderness: There is no abdominal tenderness. Musculoskeletal: General: Normal range of motion. Cervical back: Normal range of motion. Right lower leg: No edema. Left lower leg: No edema. Skin: General: Skin is warm and dry. Neurological: Mental Status: He is alert and oriented to person, place, and time. Psychiatric: Mood and Affect: Mood normal. Behavior: Behavior normal. Labs I have reviewed all labs, and pertinent positives and negatives are discussed in the Assessment and Plan. Ted Roth MD - 07/22/2021 11:42 AM CDT Images from the original note were not included. DAILY PROGRESS NOTE Michael Bacon is a 81yr old male admitted on 07/20/2021 7:17 PM. Impression / Plan 1.NSTEMI type 1. He has mild chest pain this am. Continue beta shree and heparin. After cath will dc heparin and resume home dose of Eliquis. Risk of LIZZ discussed with patient and he verbalized. He has not tolerated statin. 2.Hypertension. BP elevated. Continue beta shree and ARB. Continue PRN medication 3.Atrial fibrillation. Rate controlled. Continue BB and heparin. After cath will resume Eliquis and DC heparin 4.DVT prophylaxis. Eliquis 5.PMR. Continue prednisone 6.Chronic kidney disease. Creatinine is close to baseline 7.Code status. Full Code DW patient at bed side and he verbalized. Interval History HPI He is endorsing mild chest pain but otherwise normal NO fever overnight Plan for cath Tele revealed AF 60-70 BP reviewed and elevated. Review of Systems Review of Systems Constitutional: Negative for chills and fever. Respiratory: Negative for cough and shortness of breath. Cardiovascular: Positive for chest pain. Negative for leg swelling. Neurological: Negative for dizziness and headaches. Physical Exam Vital Signs: Temp: 98.2 F (36.8 C) | BP: 190/114 | Pulse: 62 | Resp: 16 | Pain Ratin (out of10) | Weight: 68.9 kg (151 lb 14.4 oz) | O2 Device: Room Air | SpO2: 98 % Maximum Temperatures (last 24 hours) Temperature Maximum Max Temp 98.5 F (36.9 C) Intake and Output: 07/21 0700 - 07/22 0659 In: 240 [Oral:240] Out: 450 [Urine:450] Physical Exam Constitutional: General: He is not in acute distress. Appearance: He is not ill-appearing. Cardiovascular: Rate and Rhythm: Normal rate. Rhythm irregular. Pulmonary: Effort: Pulmonary effort is normal. Breath sounds: Normal breath sounds. Abdominal: General: Abdomen is flat. Bowel sounds are normal. Palpations: Abdomen is soft. Musculoskeletal: General: Normal range of motion. Skin: General: Skin is warm. Neurological: Mental Status: He is oriented to person, place, and time. Psychiatric: Mood and Affect: Mood normal. Behavior: Behavior normal. Labs Labs (Last day) 07/22/21 0317 - 07/22/21 0317 CARDIAC MARKERS 07/22/21 0317 CARDIAC MARKERS BNP 0-100 (pg/mL) 1,198 07/22/21 1044 - 07/22/21 1044 CBC 07/22/21 1044 CBC WBC 4.0-11.0 (K/uL) 10.4 RBC 4.40-5.80 (M/uL) 4.27 Hemoglobin 13.5-17.5 (g/dL) 13.6 Hematocrit 40.0-50.0 (%) 40.3 MCV 80.0-98.0 (fL) 94.4 MCH 25.5-34.0 (pg) 31.9 MCHC 31.5-36.5 (g/dL) 33.7 RDW-CV 11.5-15.5 (%) 14.6 RDW-SD 35.5-50.0 (fl) 51.2 Platelet Count 140-400 (K/uL) 208 MPV 8.5-12.0 (fL) 9.7 07/22/21 1044 - 07/22/21 1044 CHEMISTRY 07/22/21 1044 CHEMISTRY Glucose 70-99 (mg/dL) 92 Sodium 136-145 (meq/L) 137 Potassium 3.5-5.1 (meq/L) 4.0 Chloride 98-109 (meq/L) 104 CO2 20-29 (meq/L) 26 Anion Gap with K 6-20 (meq/L) 11 BUN 6-22 (mg/dL) 40 Creatinine 0.70-1.30 (mg/dL) 1.23 BUN/Creatinine Ratio 10.0-25.0 32.5 Calcium 8.5-10.5 (mg/dL) 9.1 eGFR >=60 (mL/min/1.73m2) 69 eGFR Non- >=60 (mL/min/1.73m2) 57 07/22/21 1044 - 07/22/21 1044 DIFFERENTIAL 07/22/21 1044 DIFFERENTIAL Seg Neut Absolute 1.8-8.0 (K/uL) 8.3 Lymphocytes Absolute 0.8-4.1 (K/uL) 0.6 Monocytes Absolute 0.0-1.0 (K/uL) 1.1 Eosinophils Absolute 0.0-0.7 (K/uL) 0.2 Basophil Absolute 0.0-0.2 (K/uL) 0.1 Immature Granulocyte Absolute 0.00-0.06 (K/uL) 0.24 Neutrophils Percent (%) 79.8 Neutrophils Abs. (Segs and Bands) (/uL) 8,300 Lymphocytes Percent (%) 5.3 Monocytes Percent (%) 10.3 Immature Granulocyte Percent (%) 2.3 Eosinophils Percent (%) 1.7 Basophil Percent (%) 0.6 Nucleated RBC (/100 WBC's) 0 07/21/21 1233 - 07/21/21 1233 ECG/EKG 07/21/21 1233 ECG/EKG EKG WAVEFORM Atrial fibrillation with premature ventricular or aberrantly conducted complexes Left axis deviation ST & T wave abnormality, consider lateral ischemia Abnormal ECG When compared with ECG of 09-JUL-2018 09:49, Atrial fibrillation has replaced Sinus rhythm Nonspecific T wave abnormality now evident in Inferior leads Inverted T waves have replaced nonspecific T wave abnormality in Lateral leads Ventricular Rate: 82 BPM QRS Duration: 86 ms Q-T Interval: 396 ms QTc Calculation(Bazett): 462 ms Calculated R Anabel: -43 degrees Calculated T Anabel: 8 degrees 07/22/21 1044 - 07/22/21 0317 GENERAL COAGULATION 07/22/21 1044 07/22/21 0317 GENERAL COAGULATION APTT 24-35 (secs) 78 46 07/22/21 1044 - 07/22/21 1044 OTHER 07/22/21 1044 OTHER Age (Years) 81 Medical Decision making Medical Decision Making Ted Roth MD - 07/21/2021 11:26 AM CDT Images from the original note were not included. DAILY PROGRESS NOTE Michael Bacon is a 81yr old male admitted on 07/20/2021 7:17 PM. Impression / Plan 1.NSTEMI type 1. Trop elevated. Currently he denies chest pain. Continue beta shree. He received Eliquis this am and cardiology started on heparin but will be started at night without bolus. Communication to pharmacy and nurse sent. Tele revealed AF rate controlled. Will follow echo. He has not tolerated statin. 2.Hypertension. Continue beta shree and ARB. Hold HCTZ for now 3.Atrial fibrillation. Rate controlled. Continue BB and heparin. After cath will resume Eliquis and DC heparin 4.DVT prophylaxis. Eliquis 5.PMR. Continue prednisone 6.Code status. Full Code DW patient and significant other at bed side. They verbalized and agree with plan. Interval History HPI He denies chest pain and SOB Tele revealed AF 87 Cardio following and plan for cath Eliquis DC and started on heparin Review of Systems Review of Systems Constitutional: Negative for chills and fever. Respiratory: Negative for cough and shortness of breath. Cardiovascular: Negative for chest pain and leg swelling. Neurological: Negative for dizziness and headaches. Physical Exam Vital Signs: Temp: 97.5 F (36.4 C) | BP: 123/110 | Pulse: 89 | Resp: 18 | Pain Ratin (out of10) | Weight: 68.2 kg (150 lb 5.7 oz) | O2 Device: Room Air | SpO2: 99 % Maximum Temperatures (last 24 hours) Temperature Maximum Max Temp 98.9 F (37.2 C) Intake and Output: 07/20 0700 - 07/21 0659 In: 200 [Oral:200] Out: 425 [Urine:425] Physical Exam Constitutional: General: He is not in acute distress. Appearance: He is not ill-appearing. Cardiovascular: Rate and Rhythm: Normal rate. Rhythm irregular. Pulmonary: Effort: Pulmonary effort is normal. Breath sounds: Normal breath sounds. Abdominal: General: Abdomen is flat. Bowel sounds are normal. Palpations: Abdomen is soft. Musculoskeletal: General: Normal range of motion. Skin: General: Skin is warm. Neurological: Mental Status: He is oriented to person, place, and time. Psychiatric: Mood and Affect: Mood normal. Behavior: Behavior normal. Labs Labs (Last day) 07/21/21 0509 - 07/20/21 214 CARDIAC MARKERS 07/21/21 0509 07/21/21 0041 07/20/212139 CARDIAC MARKERS Troponin I 0.000-0.033 (ng/mL) 0.812 0.652 0.679 07/20/212139 - 07/20/212139 CBC 07/20/212139 CBC WBC 4.0-11.0 (K/uL) 7.2 RBC 4.40-5.80 (M/uL) 3.63 Hemoglobin 13.5-17.5 (g/dL) 11.7 Hematocrit 40.0-50.0 (%) 34.5 MCV 80.0-98.0 (fL) 95.0 MCH 25.5-34.0 (pg) 32.2 MCHC 31.5-36.5 (g/dL) 33.9 RDW-CV 11.5-15.5 (%) 14.5 RDW-SD 35.5-50.0 (fl) 50.6 Platelet Count 140-400 (K/uL) 215 MPV 8.5-12.0 (fL) 9.5 07/20/212139 - 07/20/212139 CHEMISTRY 07/20/212139 CHEMISTRY Glucose 70-99 (mg/dL) 111 Sodium 136-145 (meq/L) 138 Potassium 3.5-5.1 (meq/L) 4.1 Chloride 98-109 (meq/L) 108 CO2 20-29 (meq/L) 21 Anion Gap with K 6-20 (meq/L) 13 BUN 6-22 (mg/dL) 42 Creatinine 0.70-1.30 (mg/dL) 1.18 BUN/Creatinine Ratio 10.0-25.0 35.6 Calcium 8.5-10.5 (mg/dL) 8.1 Corrected Calcium 8.5-10.5 (mg/dL) 9.1 Bilirubin Total 0.2-1.2 (mg/dL) 0.6 Alkaline Phosphatase 40-150 (U/L) 69 ALT - SGPT 0-55 (U/L) 12 AST - SGOT 5-34 (U/L) 15 Protein Total 6.0-8.3 (g/dL) 4.6 Albumin 3.2-4.6 (g/dL) 2.7 eGFR >=60 (mL/min/1.73m2) 72 eGFR Non- >=60 (mL/min/1.73m2) 59 07/20/212139 - 07/20/212139 DIFFERENTIAL 07/20/212139 DIFFERENTIAL Seg Neut Absolute 1.8-8.0 (K/uL) 5.9 Lymphocytes Absolute 0.8-4.1 (K/uL) 0.6 Monocytes Absolute 0.0-1.0 (K/uL) 0.5 Eosinophils Absolute 0.0-0.7 (K/uL) 0.0 Basophil Absolute 0.0-0.2 (K/uL) 0.0 Immature Granulocyte Absolute 0.00-0.06 (K/uL) 0.23 Neutrophils Percent (%) 81.5 Neutrophils Abs. (Segs and Bands) (/uL) 5,900 Lymphocytes Percent (%) 7.6 Monocytes Percent (%) 7.3 Immature Granulocyte Percent (%) 3.2 Eosinophils Percent (%) 0.3 Basophil Percent (%) 0.1 Nucleated RBC (/100 WBC's) 0 07/21/21 1050 - 07/21/21 1050 GENERAL COAGULATION 07/21/21 1050 GENERAL COAGULATION APTT 24-35 (secs) 31 07/20/21 2140 - 07/20/21 2140 OTHER 07/20/21 2140 OTHER Age (Years) 81 Medical Decision making Medical Decision Making documented in this encounter H&P Notes Cristian Blevins MD - 07/20/2021 9:16 PM CDT ADMISSION HISTORY AND PHYSICAL NOTE Patient ID: Michael Bacon is a 81yr male. PCP: Michael Hinojosa MD Attending Provider: Cristian Blevins MD KANDIS: [id number] Impression / Plan 1. NSTEMI h/o CAD s/p stent placement x1 2 years ago- serial troponin, telemetry, EKG, cardiology consult, asa and eliquis. add metoprolol 2. atrial fibrillation- continue eliquis, telemetry 3. Hypertension- continue losartan, HCTZ 4. GERD- continue omeprazole 5. PMR- continue prednisone Chief Complaint / HPI HPI ADMISSION HISTORY The patient is an 81-year-old male with past medical history of coronary artery disease, status poststent placement 2 years ago in [place], atrial fibrillation, hypertension, GERD, polymyalgia rheumatica. The patient presented to [facility] this morning with complaint of chest pain located in the midsternal area. He took some omeprazole and Tums, which did not relieve his pain. He had a bowel movement after taking the Tums. This also did not help his chest pain. The patient denies any nausea or vomiting. He reports some chest pain yesterday. He had a cardiac stent placed 2 years ago in [place] and he has not had any chest pain since. Patient denies any fever, chills, shortness of breath or diaphoresis. He was evaluated at [facility]. His blood tests showed wbc of 9.0, hemoglobin of 12.8, platelets of 296. Sodium 140, potassium 4.1, chloride 105, CO2 of 25, BUN 52, creatinine 1.8, glucose 154, calcium is 8.9, magnesium 1.8, total bilirubin 0.5, ALT of 14, AST of 22, alkaline phosphatase of 89. Troponin is 589.4. Total protein is 5.6, albumin is 3.1, globulin is 2.5. Patient was given aspirin, IV fluids and transferred to [place] for further evaluation and management. EKG showed atrial fibrillation, LVH with secondary repolarization abnormality. Multiple LVH criteria. Abnormal ST inferior infarct, old. Receipt: [id number] [facility] ID: [id number]/[facility] PRECIPITATOR PRECIPITATOR Medications Prior to Admission Medications Prescriptions Last Dose Informant Patient Reported? Taking? Multiple Vitamins-Minerals (MULTIVITAMIN THERAPEUTIC WITH MINERALS) tablet Self Yes No Sig: Take 1 tablet by mouth 1 time per day acetaminophen (TYLENOL ARTHRITIS) 650 mg CR tablet Yes No Sig: Take 650 mg by mouth Every 8 hours as needed albuterol HFA (PROVENTIL,PROAIR,VENTOLIN) 108 (90 BASE) mcg/ACT AERS Yes No Si puffs Every 4 hours as needed apixaban (ELIQUIS) 5 MG tablet Yes No Sig: Take 5 mg by mouth 2 times a day ferrous sulfate (65 MG FE PER 325 MG TABLET) 325 mg tablet Yes No Sig: TAKE ONE TABLET BY MOUTH EVERY DAY gabapentin (NEURONTIN) 300 mg capsule No No Sig: Take 1 capsule (300 mg) by mouth 2 times a day glucosamine-chondroitin (JOINT FLEX) 500-400 mg capsule Self Yes No Sig: Take 1 capsule by mouth 1 time per day hydroCHLOROthiazide 25 mg tablet No No Sig: Take 1 tablet (25 mg) by mouth 1 time per day losartan 100 mg tablet No No Sig: Take 1 tablet (100 mg) by mouth 1 time per day methylPREDNISolone (MEDROL DOSEPAK) 4 MG tablet Yes No Sig: Take by mouth 1 time per day Take as directed on package. omeprazole (PRILOSEC) 20 mg capsule No No Sig: Take 1 capsule (20 mg) by mouth 1 time a day in the morning oxyCODONE (OXY-IR) 5 mg tablet (immediate release) No No Sig: Take 1 tablet (5 mg) by mouth every 6 hours as needed for severe pain predniSONE 1 mg tablet No No Sig: Take 1 tablet (1 mg) by mouth 1 time per day 6 mg a day predniSONE 5 mg tablet No No Sig: Take 1 tablet (5 mg) by mouth 1 time per day tiotropium-olodaterol (STIOLTO RESPIMAT) 2.5-2.5 mcg/puff inhaler Yes No Sig: INHALE 2 INHALATIONS BY MOUTH EVERY 24 HOURS FOR BREATHING Facility-Administered Medications: None Allergies Allergies Allergen Reactions Statins [Hmg-Coa-R Inhibitors] Statin Contraindication - Intolerance Myalgia Medical / Surgical / Family History No past medical history on file. Past Surgical History: Procedure Laterality Date ARTHROSCOPY KNEE SURGICAL INFECTION LAVAGE & DRAINAGE Right 1991 ARTHROSCOPY KNEE SURGICAL SYNOVECTOMY MAJOR 2+ COMPARTMENTS Left 1984 SHOULDER ARTHROPLASTY Right 08/30/2018 Procedure: RIGHT REVERSE TOTAL SHOULDER ARTHROPLASTY;; Surgeon: Darrell Major MD ZZROTATOR CUFF ANCHOR Left 2011 ZZROTATOR CUFF ANCHOR Right 2008 Family History Problem Relation Age of Onset Not otherwise listed - Cancer Father Prostate Stroke Father Other Mother Pneumonia Colorectal Cancer Sister Not otherwise listed - Cancer Sister colon cancer Colorectal Cancer Brother Not otherwise listed - Cancer Brother colon cancer Social History Social History Tobacco Use Smoking status: Former Smoker Packs/day: 1.00 Years: 8.00 Pack years: 8.00 Types: Cigarettes Quit date: 10/05/1971 Years since quittin.8 Smokeless tobacco: Never Used Substance Use Topics Alcohol use: Yes Alcohol/week: 1.0 standard drinks Types: 1 Cans of beer per week Comment: one beer daily Drug use: No ROS Review of Systems Constitutional: Positive for activity change. Negative for appetite change. HENT: Negative for ear pain. Respiratory: Negative for cough and shortness of breath. Cardiovascular: Positive for chest pain. Negative for leg swelling. Gastrointestinal: Negative for abdominal distention, nausea and vomiting. Genitourinary: Negative for dysuria. Musculoskeletal: Positive for arthralgias and back pain. Skin: Negative for color change. Neurological: Negative for dizziness and weakness. Hematological: Negative for adenopathy. Psychiatric/Behavioral: Negative for agitation. All other systems reviewed and are negative. Physical Exam BP 148/86 | Pulse 85 | Temp 98.9 F (37.2 C) | Resp 18 | Ht 1.778 m (5' 10") | Wt 68.2 kg (150 lb 5.7 oz) | SpO2 99% | BMI 21.57 kg/m Physical Exam Vitals and nursing note reviewed. Constitutional: Appearance: Normal appearance. HENT: Head: Normocephalic and atraumatic. Nose: Nose normal. Mouth/Throat: Mouth: Mucous membranes are moist. Eyes: General: Right eye: No discharge. Left eye: No discharge. Cardiovascular: Rate and Rhythm: Normal rate and regular rhythm. Pulmonary: Effort: Pulmonary effort is normal. Breath sounds: Normal breath sounds. Abdominal: General: Bowel sounds are normal. Palpations: Abdomen is soft. Musculoskeletal: General: Normal range of motion. Cervical back: Normal range of motion. Skin: General: Skin is warm and dry. Neurological: General: No focal deficit present. Mental Status: He is alert and oriented to person, place, and time. Labs Labs (Last day) No results found within the past day. Procedures Procedures Medical Decision Making MDM Reviewed: previous chart, nursing note and vitals Reviewed previous: labs, ECG and x-ray documented in this encounter Procedure Notes Hang Carmona DO - 07/23/2021 11:15 AM CDT Procedure Documentation KANDIS: [id number] PATIENT NAME: Michael Bernal William Procedures Att. Phys: Ted Wallace MD Operative Date: 07/23/2021 Surgeon: Hang Carmona DO Creative Strategist: none Pre-Operative Diagnosis: Sever MR evaluate for structural heart Post-Operative Diagnosis: See full report Anesthesia Type: See VIJAY Lab procedure log Operative Procedure: VIJAY Specimens: None Fluids Given: See VIJAY Lab procedure log Urine Output: See VIJAY Lab procedure log Estimated Blood Loss: none Drains: none Findings: Sever MR with Multiple Jets, P2 and A2 prolapse, no SONIA thrombus, no PFO Versed 2 mg Fentanyl 75 mcg Complications: None Disposition: Postoperative Condition: stable The procedure was performed using moderate conscious sedation. The patient was monitored utilizing continuous pulse oximetry, continuous telemetry and intermittent blood pressure measurements throughout the procedure without notable aberration in vitals. Please see the patient's procedure log for fur ther information. Physician start time 1057 Physician stop time 1107 documented in this encounter Consult Notes MathewHangDO - 07/21/2021 10:20 AM CDT Cardiology Consult Note Consults Assessment / Plan Active Problems: NSTEMI (non-ST elevated myocardial infarction) (HCC) Plan: Cath in am IMPRESSION AND PLAN: Non-ST segment elevation myocardial infarction. The patient actually has a pretty fairly typical history. He needs cardiac catheterization. He received his Eliquis this morningand he is chest pain free, so we will just do the procedure tomorrow. I have held off on his Eliquis for now. He is still going to be receiving aspirin and he is on Lopressor 12.5, losartan and we are going to continue with his medication. Evidently his blood pressure runs pretty high, but with theadministration of medication I think his blood pressure is getting better according to the nurse. Please do not hold his losartan nor his metoprolol nor any of his antihypertensives because he needs th em. It is okay to hold hydrochlorothiazide for now. Also, he does not need any IV fluids, so we can feed him today and then stop. Everything will be done tomorrow. I explained the risks and goals to the patient and he understands that. Consent: Cardiac Catheterization I have reviewed the procedure, risks and goals of coronary angiography including the possibility of stent placement, including drug eluting stent, with the patient. Among the risks I specifically reviewed were the major complications of , stroke, heart attack and major vascular injury as well ascontrast reaction and possible kidney failure. I have discussed the possible need for urgent surgeryas a result of a complication. The patient understands, agrees and wishes to proceed. Reason for Consult Chest pain HPI / History / ROS HPI REASON FOR CONSULTATION: Indigestion and elevated troponin. HISTORY OF PRESENT ILLNESS: The patient is a very, very, very pleasant, 81-year-old gentleman significant for a non-ST segment elevation SD. He has required stent placement in [place]. Again with I am not sure where he does not know it either in 10/2018. Actually a couple of days ago is when he woke up from the bed and he kind of felt like he was having indigestion and chest tightness, which radiated to the right side and so he took omeprazole. He took Tums. The pain kind of subsided, so he didnot make much of that until yesterday morning. He actually woke up again and he was having worsening. Again a feeling of indigestion, chest tightness with radiation to the right side of the chest, fee ling dizzy and lightheaded, took omeprazole and Tums. At this time it did not help really, it got worse so he called his to take him to the hospital. He does not currently have any chest pain orshortness of breath. He has a history of chronic atrial fibrillation, so he is on coronary anticoagulation therapy. He was given his Eliquis this morning. His troponin is slightly rising at 0.82. His hemoglobin is 11.2. As I mentioned, these symptoms of indigestion currently. About 2 years ago his symptoms were similar to the symptoms that he has now. This is the time when he got his stent. He has had no syncopal episode, but about 2-3 weeks ago evidently came from his tractor, was coming [employer]. He had a fall and he has reinjured his back, so he has been in significant pain. He was seen bydoctors and they have not recommended any intervention, so he is supposed to wear his brace on his back. He is not scheduled for any spine surgery and he does not require any surgery. He said his pain for the most part has been managed with OxyContin, but he likes to get off of the OxyContin so he would not get addicted to it. He has no fever, chills, coughing or wheezing. He has some loose stools, mainly because he has had a bowel resection. A few years ago again, because of his bowel resection, he has had some weight loss, but his weight has been stable lately and he has been about going somewhere between 145-150. He has not had any significant weight gain. No change in his appetite. No syncopal episode. No lower extremity edema, orthopnea or PND. No melena, hematochezia, hemoptysis, hematemesis. He has been otherwise in his usual state of health. His troponin, as I mentioned, is rising. His hemoglobin is 11.3. His GFR is 59. His creatinine is 1.18. EKG is pending today but diana oswaldly from outside facility there was no elevation. Currently the patient is very, very comfortable. Receipt: [id number] Trans ID: [id number] PRECIPITATOR [facility] [id number] History Current Facility-Administered Medications Medication Dose Route Frequency hEParin (50 units/mL) in D5W premixed IV solution (SMF LOW PTT. Goal Range 70-89.9) 0-50 Units/kg/hr IV Titrate sodium chloride 0.9% flush (adult) 10 mL 10 mL IV 2 times a day and prn sodium chloride 0.9% flush (adult) 10 mL 10 mL IV 2 times a day and prn nalOXone (NARCAN) injection solution (vial) 0.4 mg 0.4 mg Injection Every 2 minutes prn nalOXone (NARCAN) injection solution (vial) 0.2 mg 0.2 mg Injection Every 2 minutes prn acetaminophen (TYLENOL) tablet 650 mg 650 mg Oral Every 4 hours prn oxyCODONE (OXY-IR) tablet 5 mg 5 mg Oral Every 4 hours prn fentaNYL 100 mcg/2 mL preservative free injection solution 25 mcg 25 mcg IV Every 2 hours prn melatonin tablet 3 mg 3 mg Oral Bedtime prn senna-docusate sodium (SENOKOT-S;PERICOLACE) tablet 2 tablet 2 tablet Oral 2 times a day prn And bisacodyl (DULCOLAX) suppository 10 mg 10 mg Rectal 1 time a day prn And docusate sodium (THEREVAC-SB MINI;ENEMEEZ MINI) 283 MG enema 1 enema 1 enema Rectal 1 time a day prn ondansetron (ZOFRAN ODT) dispersible tablet 4 mg 4 mg Oral 4 times a day prn And ondansetron (ZOFRAN) injection solution 4 mg 4 mg IV 4 times a day prn calcium carbonate (TUMS) chewable tablet 1,000 mg 1,000 mg Oral Every 4 hours prn famotidine (PEPCID) tablet 20 mg 20 mg Oral 2 times a day prn acetaminophen (TYLENOL) tablet 650 mg 650 mg Oral Every 6 hours prn Or acetaminophen (TYLENOL) suppository 650 mg 650 mg Rectal Every 6 hours prn albuterol (PROVENTIL) (2.5 mg/3mL) 0.083% inhalation soln 2.5 mg 2.5 mg Nebulization Every 4 hours prn ferrous sulfate (65 mg FE per 325 mg tablet) tablet 325 mg 325 mg Oral daily gabapentin (NEURONTIN) capsule 300 mg 300 mg Oral 2 times a day losartan tablet 100 mg 100 mg Oral daily omeprazole (priLOSEC) capsule 20 mg 20 mg Oral Every morning oxyCODONE (OXY-IR) tablet 5 mg 5 mg Oral Every 6 hours prn predniSONE tablet 1 mg 1 mg Oral daily predniSONE tablet 5 mg 5 mg Oral daily umeclidinium-vilanterol (ANORO ELLIPTA) 62.5-25 mcg/Inh inhaler 1 puff 1 puff Inhalation Daily metoprolol tartrate (LOPRESSOR) half-tablet 12.5 mg 12.5 mg Oral 2 times a day Allergies Allergen Reactions Statins [Hmg-Coa-R Inhibitors] Statin Contraindication - Intolerance Myalgia No past medical history on file. Past Surgical History: Procedure Laterality Date ARTHROSCOPY KNEE SURGICAL INFECTION LAVAGE & DRAINAGE Right 1991 ARTHROSCOPY KNEE SURGICAL SYNOVECTOMY MAJOR 2+ COMPARTMENTS Left 1984 SHOULDER ARTHROPLASTY Right 08/30/2018 Procedure: RIGHT REVERSE TOTAL SHOULDER ARTHROPLASTY;; Surgeon: Darrell Major MD ZZROTATOR CUFF ANCHOR Left 2011 ZZROTATOR CUFF ANCHOR Right 2008 Family History Problem Relation Age of Onset Not otherwise listed - Cancer Father Prostate Stroke Father Other Mother Pneumonia Colorectal Cancer Sister Not otherwise listed - Cancer Sister colon cancer Colorectal Cancer Brother Not otherwise listed - Cancer Brother colon cancer Social History Socioeconomic History Marital status: Spouse name: Not on file Number of children: 2 Years of education: 12 Highest education level: Not on file Occupational History Occupation: retired Tobacco Use Smoking status: Former Smoker Packs/day: 1.00 Years: 8.00 Pack years: 8.00 Types: Cigarettes Quit date: 10/05/1971 Years since quittin.8 Smokeless tobacco: Never Used Substance and Sexual Activity Alcohol use: Yes Alcohol/week: 1.0 standard drinks Types: 1 Cans of beer per week Comment: one beer daily Drug use: No Social Determinants of Health Physical Activity: Days of Exercise per Week: Minutes of Exercise per Session: Stress: Feeling of Stress : Social Connections: Frequency of Communication with Friends and Family: Frequency of Social Gatherings with Friends and Family: Attends Lutheran Services: Active Member of Clubs or Organizations: Attends Club or Organization Meetings: Marital Status: Intimate Partner Violence: Fear of Current or Ex-Partner: Emotionally Abused: Physically Abused: Sexually Abused: Financial Resource Strain: Difficulty of Paying Living Expenses: Food Insecurity: Worried About Running Out of Food in the Last Year: Ran Out of Food in the Last Year: Transportation Needs: Lack of Transportation (Medical): Lack of Transportation (Non-Medical): Review of Systems Review of Systems All other systems reviewed and are negative. Physical / Results Current Vital Signs Temp: 97.6 F (36.4 C) BP: 159/93 Weight: 68.2 kg (150 lb 5.7 oz) SpO2: 100 % Resp: 16 Pulse: 86 Current BMI (>50 = increased risk): 21.57 O2 Device: Room Air Pain Ratin Physical Exam Constitutional: No distress. Eyes: Conjunctivae are normal. Neck: No JVD present. Cardiovascular: Normal rate, S1 normal and S2 normal. An irregular rhythm present. Exam reveals no S3 and no S4. No murmur heard. Pulmonary/Chest: Effort normal and breath sounds normal. He has no wheezes. He has no rales. He exhibits no tenderness. Abdominal: Soft. He exhibits no distension. Musculoskeletal: General: No tenderness or edema. Normal range of motion. Cervical back: Normal range of motion and neck supple. Neurological: He is alert and oriented to person, place, and time. He has normal motor skills and intact cranial nerves. Skin: Skin is warm and dry. No rash noted. No cyanosis. No pallor. Medical Decision Making I have: Independently visualized and interpreted an image, tracing or specimen previously or subsequently interpreted by another provider. documented in this encounter Miscellaneous Notes Care Planning - Zenobia Ackerman RN - 07/24/2021 11:18 AM CDT Problem: PHYSICAL COMFORT Goal: CLIENT SATISFACTION: PAIN MANAGEMENT Description: DEFINITION: Extent of positive perception of nursing care to relieve pain. 1=Not at all satisfied, 2=Somewhat satisfied, 3=Moderately satisfied, 4=Very satisfied, 5=Completely satisfied. Outcome: Outcome acceptable for discharge Problem: RISK FOR DECREASED CARDIAC TISSUE PERFUSION Goal: ACTIVITY TOLERANCE Description: DESCRIPTION: Physiologic response to energy-consuming movements with daily activities. 1=Severly compromised, 2=Substantially compromised, 3=Moderately compromised, 4=Mildly compromised, 5=Not compromised. Outcome: Outcome acceptable for discharge Goal: CARDIOPULMONARY STATUS Description: DESCRIPTION: Adequacy of blood volume ejected from the ventricles in exchange of carbondioxide and oxygen at the alveolar level. 1=Severe deviation from normal range, 2=Substantial deviation from normal range, 3=Moderate deviation from normal range, 4=Mild deviation from normal range, 5=No deviation from normal range. Outcome: Outcome acceptable for discharge Problem: RISK FOR FALLS Goal: FALL PREVENTION BEHAVIOR Description: DEFINITION: Personal or family career specialist actions to minimize risk factors that might precipitate falls in the personal environment. 1=Never demonstrated, 2=Rarely demonstrated, 3=Sometimes demonstrated, 4=Often demonstrated, 5=Consistently demonstrated. Outcome: Outcome acceptable for discharge Goal: MOBILITY Description: DEFINITION: Ability to move purposefully in own environment independently with or without assistive device. 1=Severely compromised, 2=Substantially compromised, 3=Moderately compromised,4=Mildly compromised, 5=Not compromised. Outcome: Outcome acceptable for discharge Problem: INEFFECTIVE HEALTH MANAGEMENT Goal: DISCHARGE READINESS: SUPPORTED LIVING Description: DEFINITION: Readiness of a patient to relocate from a healthcare institution to a lowerlevel of supported living. 1=Never demonstrated, 2=Rarely demonstrated, 3=Sometimes demonstrated, 4=Often demonstrated, 5=Consistently demonstrated. Outcome: Outcome acceptable for discharge Problem: READINESS FOR ENHANCED HEALTH MANAGEMENT Goal: DISCHARGE READINESS: INDEPENDENT LIVING Description: DEFINITION: Readiness of a patient to relocate from a health care institution to livingindependently. 1=Never demonstrated, 2=Rarely demonstrated, 3=Sometimes demonstrated, 4=Often demonstrated, 5=Consistently demonstrated. Outcome: Outcome acceptable for discharge Samina Pickett LSW - 07/24/2021 11:12 AM CDT CASE MANAGEMENT / SOCIAL SERVICE FINAL TRANSITION PLAN TRANSITION DATE: 07/24 TRANSITION TIME: Per floor. INTENDED PAYER SOURCE FOR AGENCY: Medicare TRANSITION DESTINATION: Home DOES ACCEPTING FACILITY REQUIRE COVID TESTING BEFORE DISCHARGE: N/A TRANSITION TRANSPORTATION: Family Car TRANSPORTATION PAYMENT: Not applicable TRANSITION CHOICES OFFERED: Home: Family/Friend Support DOES THE PATIENT HAVE A PRIMARY CARE PHYSICIAN? Yes Michael Hinojosa MD PATIENT / SUBSTITUTE DECISION MAKER GOAL UPON TRANSITION: First Choice: Home: Family/Friend Support PATIENT CHOICE EDUCATION: Not applicable MEDICARE 3 IP MIDNIGHT CRITERIA MET: N/A RESOURCE(S) PROVIDED: nothing needed at this time DOES PATIENT HAVE CLOTHING TO WEAR AT DISCHARGE? Yes ANTICIPATED MODE OF TRANSPORT TO AND FROM FOLLOW UP APPOINTMENTS: Family Car VERIFIED CORRECT PHARMACY IS ENTERED FOR DISCHARGE: Yes - Pharmacy: . [id number] METHOD OF PRESCRIBING MEDICATIONS: Medications to be E-prescribed to above pharmacy TRANSITION ROUNDING COMPLETED WITH THE FOLLOWING: Patient / family Adjunct Psychology Instructor Discussed in person COMMENTS / PATIENT AND FAMILY RESPONSE TO PLAN: Patient medically ready to be discharged. Spoke with patient at bedside to confirm plan. Patient to be discharged home and to provide transportation. No questions/concerns for CM. CURRENT READMISSION RISK SCORE / HANDOFF: Predictive Risk Score Risk of Unplanned Readmission: 16 Handoff given: N/A SIGNED: CHEY Marquez Case Management - [facility] | Pager: [phone] Respiratory Therapy - Thania Duarte RRT - 07/24/2021 10:53 AM CDT Patient seen this morning sitting up in bed on RA with SpO2 96%. Patient dressed and eager to hear if he is going home today. Patient reports no difficulty breathing nor SOB. Patient takes Stilito at home and receiving ANORO daily here. Takes well with great technique and rinses mouth post. Patient with clear-diminished BBS. RT service will continue to follow. [facility]di[facility] Rehab - Carla Arroyo EP - 07/24/2021 9:13 AM CDT Cardiac Rehab Phase 1 Inpatient Note: Diagnosis: NSTEMI, Stent x1 Physical Activity Completed: Ambulate in lomeli Distance Ambulated: 270 feet Ambulation Assistance: SBA Patient response to Exercise: good Exercise Comments: Able to walk and talk. Up to chair afterwards in the hallway by the window. RN aware. Gaitbelt used with activity Vitals Resting Heart Rate - 90s bpm Exercise Heart Rate - 90s-103 bpm O2 Device - RA Assessment/Plan: Tolerates activity well. Encouraged patient to ambulate in hallway 3-4 times daily as tolerated with gradual progression. -Progress as tolerated -Patient referred to outpatient Cardiac Rehab program -Continue to follow until until Discharge -Home activity and exercise teaching completed Recommendation: "Outpatient Cardiac Rehab Roann Continue Inpatient Cardiac Rehab Plan of Care daily until discharge. Cardiac Rehab [facility] Pager: [phone] espiratory Therapy - Anuja Gregory, AUDIO INSTALLER STUDENT - 07/23/2021 2:39 PM CDT Patient was seen resting in bed on RA SpO2 97%, no signs of respiratory distress. BS clear and diminished, RR 16, HR 78. Patient has a strong productive cough. Patient continues to receive Anoro Ellipta DPI Daily. Patient tolerated well. RT to follow. are Planning - Zenobia Ackerman RN - 07/23/2021 2:05 PM CDT Problem: PHYSICAL COMFORT Goal: CLIENT SATISFACTION: PAIN MANAGEMENT Description: DEFINITION: Extent of positive perception of nursing care to relieve pain. 1=Not at all satisfied, 2=Somewhat satisfied, 3=Moderately satisfied, 4=Very satisfied, 5=Completely satisfied. Outcome: NOC Rating 4 Flowsheets (Taken 07/23/2021 1402) Initial Score: 3 Target Score: 5 Patient specific goal for the day: Patient pain will be controlled with PRN medications and pt will notify nurse when in pain. Patient specific goal for the stay: Patients pain will be controlled with oral PRN medications and return to baseline by discharge. Patient Progress: PRN Oxycodone and scheduled gabapention given for 5/10 back pain, pt verbalised some relief, noted resting quietly. Denied chest pain during shift. ase Mgmt - Samina Nicole LSW - 07/23/2021 11:46 AM CDT CASE MANAGEMENT / SOCIAL SERVICE TRANSITION PLAN - PROGRESS NOTE PLAN: Will Continue to Follow for Support and Progression Towards Final Transition Plan BARRIERS TO TRANSITION: Medical barriers:.cardiac rehab, VIJAY, tele, pain mgmt DOES ACCEPTING FACILITY REQUIRE COVID TESTING BEFORE DISCHARGE: N/A COMMENTS / PATIENT AND FAMILY RESPONSE TO PLAN: Reviewed patient's chart. Patient discussed in interdisciplinary rounds. Per chart review, patient had VIJAY on this date. Patient working with cardiac rehab. No questions/concerns for CM at this time. Will continue to follow, await treatment team recommendations, and provide discharge options as appropriate. IS PATIENT'S ADMISSION ASSOCIATED WITH TIA, ISCHEMIC, OR HEMORRHAGIC STROKE?: No PATIENT / SUBSTITUTE DECISION MAKER GOAL UPON TRANSITION: First Choice: Home: Family/Friend Support ANTICIPATED NEEDS UPON TRANSITION: Home: Family/Friend Support RESOURCE(S) PROVIDED: nothing needed at this time VERIFIED CORRECT PHARMACY IS ENTERED FOR DISCHARGE: Yes - Pharmacy: . [facility] [id number] TRANSITION ROUNDING COMPLETED WITH THE FOLLOWING: Patient / family Adjunct Psychology Instructor Discussed in person SIGNED: CHEY Marquez Case Management - [address] [place] [address] | Pager: [phone] Supplemental Progress Note - Rachel Guerra PA-C - 07/23/2021 11:19 AM CDT Is this a NSTEMI patient: Yes, AMI Quality Measures Aspirin at Discharge - Yes Evaluation of LV Systolic Function documented during this admission - Yes P2Y12 inhibitor prescribed at discharge (including medically treated NSTEMI) - Yes Beta Shree at Discharge - Yes ZAN-I or ARB for LVSD at Discharge (EF < 40%) - Not indicated EF > 40% High Intensity Statin at Discharge - Contraindicated due to myalgias Cardiac Rehab Referral ordered- Yes Cardiology Follow-Up Appointment Indication: NSTEMI Timeframe:6 weeks Referral to Structural Heart team placed (to be seen as an outpatient) due to severe MR seen on VIJAY;consideration of mitral clip Aspirin 81 mg daily through 07/29/21, then discontinue due to triple therapy. Plavix 75 mg daily x 12 months. Continue Eliquis due to a fib. Aspirin 81 mg daily can be continued once 12 months of Plavix is completed. Physician Pre Procedure Evaluation - Hang Carmona DO - 07/23/2021 11:14 AM CDT MODERATE SEDATION: Moderate Sedation Adult Without Short Form Physician Pre- Procedure Sedation Plan (Moderate Sedation) (Note: A complete H&P is required for procedures requiring anesthesia and for inpatients.) Indication for Care: I affirm the indication for the procedure is still present. History & Physical: An up to date H&P has been completed and is available for this procedure. Date of H&P: 07/21/2021 Chief Complaint/HPI/Reason for Procedure: Sever MR Sedation Plan: Moderate Sedation: ASA Score = 5 Mallampati Class = IV (only hard palate visible) Physician's Affirmation of Discussion: I have explained the known risks, benefits, goals, and alternatives to the procedure or treatment and/or sedation. I affirm the indication for the procedure is still present. I have assessed the patient and vital signs immediately prior to sedation and concur with sedation plan. [facility] Rehab - Janis Ross EP - 07/23/2021 9:17 AM CDT Cardiac Rehab Phase 1 Inpatient Note: Diagnosis: NSTEMI/ Stent x1 Physical Activity Completed: Ambulate in lomeli Distance Ambulated: 120 feet Ambulation Assistance: Contact guard assist Patient response to Exercise: good Exercise Comments: CGA with sit to stand, fairly steady gait. Notes some back pain but this is chronic. Gaitbelt used with activity Vitals O2 Device - RA Resting HR - 95 bpm Exercise HR - 107 bpm Assessment/Plan: Tolerates activity well. Encouraged patient to ambulate in hallway 3-4 times daily as tolerated with gradual progression. -Progress as tolerated -Patient referred to outpatient Cardiac Rehab program -Continue to follow until until Discharge Recommendation: "Outpatient Cardiac Rehab- Bhavna Continue Inpatient Cardiac Rehab Plan of Care daily until discharge. Cardiac Rehab [facility] Pager: [phone] are Planning - Zenobia Ackerman RN - 07/22/2021 4:36 PM CDT Problem: RISK FOR FALLS Goal: FALL PREVENTION BEHAVIOR Description: DEFINITION: Personal or family career specialist actions to minimize risk factors that might precipitate falls in the personal environment. 1=Never demonstrated, 2=Rarely demonstrated, 3=Sometimes demonstrated, 4=Often demonstrated, 5=Consistently demonstrated. Outcome: NOC Rating 5 Flowsheets (Taken 07/22/2021 1863) Patient specific goal for the day: Patient will utilize call light appropriately when needing assistance. Patient specific goal for the stay: Patient will not have a fall this stay. Achieve goal for stay: By discharge Patient Progress: Patient was educated on how to use call light and when to use call light. Bed alarm in place. Patient used call light appropriately throughout shift. utrition Team - Thania Bang RD - 07/22/2021 4:08 PM CDT Nutrition Therapy Initial Assessment Hospital Day: 2 days Active Problems: 1.NSTEMI type 1. 2.Hypertension. 3.Atrial fibrillation. 4.PMR. Continue prednisone 5.Chronic kidney disease 6. S/p cardiac catheterization 07/22 PMH: CAD, CKD stage 3, HTN, HLD, PMR, arthritis, hx open wound, diverticulosis, iron deficiency anemia, immunosuppression d/t chronic steroid use (per care everywhere) Recommendations/Plan: 1) Encourage adequate oral intake throughout the day with small, frequent meals and snacks (as needed) to meet estimated needs Offer supplements/snacks if pt consumes <50% of meals or skips meals Malnutrition Summary Continue to assess d/t NFPE was limited at time of visit today and losses may be from hx of wt loss. NUTRITION ASSESSMENT Visited with pt's at bedside for nutrition hx today. Reported pt with good appetite but he is not a big eater. Noted pt's intake met nutrition needs yesterday. Added PM snack per pt/family preference today and encouraged adequate intake to help meet nutrition needs. Family with no further needs or questions at this time. Anthropometrics: Height: 177.8 cm (5' 10") Admission Weight: Weight: 68.2 kg (150 lb 5.7 oz) as of 07/20/2021 per bed scale Most Recent Weight: Weight: 68.9 kg (151 lb 14.4 oz) (07/22/21 0704) per electronic stand up scale Lowest Weight Since Admission: ~68 kg (150 lb) - admit wt Weight Change: minimal changes since admission BMI: Body mass index is 21.8 kg/m. IBW: 75 kg %IBW: 90% (based on admit weight) Usual Body Weight: ~155 lb per EMR review and hx of 170 lb ~ 1 year ago per family report Unintentional Weight Loss: 5% (8 lb) wt loss in < 1 month, significant 5.6% (9 lb) wt loss in ~ 2 months, not significant Wt hx Vitals WEIGHT 07/22/2021 151 lb 14.4 oz 07/03/2021 159 lb 9.6 oz 05/13/2021 160 lb 12.8 oz 12/26/2020 157 lb 1.6 oz 05/18/2020 176 lb 4.8 oz Estimated Needs: 0939-3949 kcal/day ([place] [address] Jeor x 1.2-1.3 Using: Admission Weight) 75 gm protein (1.1 gm/kg Using:Admission Weight) (per renal function) Fluids per MD Estimated average intake over the last 2 days: 07/21: 1680 kcal and 83 gm protein, which meets: 98% of estimated kcal needs and >100% of estimated protein needs. 07/20: nothing ordered but pt was NPO for part of the day Intake Records: Intake Prior to Admit: Adequate per family report Pt sleeping for most of initial visit d/t s/p cath procedure. Pt's at bedside provided diet/wt hx. Reported that pt is not a big eater but tries to eat small, frequent meals/snacks t/o the day. Usual intake: B - eggs and crocker, solomon islander toast, or cream of wheat with an orange L - leftovers or a sandwich with fruit D - meat and vegetables with fruit Snack - cookies, chip, cheese and crackers Beverages - fruit juices and milk *Pt avoids spicy foods. Family reported ~ 10 inches of colon removed ~ 1 year ago. Current Intake: Adequate yesterday and reported good appetite today but has been NPO for part of theday d/t procedure. Current Diet: Nutrition (From admission, onward) Start Ordered 07/22/21 1710 SNACKS Once info Comments: PM: cheese and cracker plate 07/22/21 1707 07/22/21 1330 Diet - Heart Healthy Now Question: Modified Diets Answer: Heart Healthy 07/22/21 1328 Physical Assessment: Edema: (per brass molder at 0820 today) Generalized Edema None GI Assessment: Abdominal exam: WDL, per brass molder at 0820 today. Stool Frequency: Pt has not had a documented BM since admission Wounds/Pressure Points: (per brass molder at 0820 today) Coccyx Blanchable Redness Elbow Left, Right, Blanchable Redness Heel Left, Right, Blanchable Redness Functional Status: RT Following [employer] [place] per pt's report Nutrition Focused Physical Exam: Completed by RD on 07/22/21 - limited d/t pt slightly confused at time of visit. Below the Eye (fat): (Difficult to assess) Holiness (muscle): Slight depression (mild-moderate) Buccal (fat): Full, round/filled out cheeks (Within defined limits) Clavicle (muscle): Some protrusion of bone (mild-moderate) (Mild) Shoulder (muscle)/Deltoid muscle: Acromion process slightly protrudes (mild- moderate) (Mild) Thigh (muscle): Mild depression on inner thigh (mild-moderate) (Moderate) Calf (muscle): Not well developed (mild-moderate) (Moderate) Nutritionally-Relevant Medications, Vitamins and Minerals: Bowel regimen prn, ferrous sulfate, losartan, lopressor, prilosec, oxycodone, prednisone, IVF Nutritionally-Relevant Biochemical Data: (07/22/2021) BUN 40 H GFR 57 L Allergies/Food Intolerance: Michael is allergic to statins [hmg-coa-r inhibitors]. Culturally Lutheran Needs: no INTERVENTIONS Encouraged adequate calories and optimal protein in small, frequent meals and snacks Will send snacks and supplements daily Conducted NFPE Obtained diet history MONITORING/EVALUATION Monitor ability to consume and tolerate adequate intake to approximate estimated needs with accomodation of preferences and tolerances until intake is sustained within desirable limits Monitor I&O, weight trends, nutrition-related labs and medications, clinical status, and planof care r/t need for nutrition intervention and provide as warranted Nutrition Therapy will reassess every 1-[address], LRD [facility] pager #[phone] espiratory Therapy - Bianca Norris, SHAYNE - 07/22/2021 2:18 PM CDT Delivered ANORO DPI daily as ordered. Patient lying flat post cardiac cath earlier today. BS clear diminished. SpO2 99% on room air. NPC. RT to follow. PostOp Progress Note - Madi Gilliland MD - 07/22/2021 12:57 PM CDT Immediate Post-Cardiac Catheterization Progress Note Att. Phys: Ted Wallace MD Operative Date: 07/22/2021 Surgeon: Madi Gilliland MD Creative Strategist: none Pre-Operative Diagnosis: NSTEMI. Post-Operative Diagnosis: 1. Significant CAD involving Prox LAD (70%) - s/p PCI with a 3*34 mm [place] NADIR. Previous stent in mid LAD is patent. 2. 90% Prox, small, non-dominant RCA. Not amenable to PCI. 3. Moderate, 50%, nonobstructive CAD involving OM1. Anesthesia Type: See Gang Boss procedure log Operative Procedure: CAG, LHC, PCI-LAD. Specimens: None Fluids Given: See Gang Boss procedure log Urine Output: See Gang Boss procedure log Estimated Blood Loss: 10 mL Drains: none Findings: Coronary anatomy- 1. Significant CAD involving Prox LAD (70%) - s/p PCI with a 3*34 mm [place] NADIR. Previous stent in mid LAD is patent. 2. 90% Prox, small, non-dominant RCA. Not amenable to PCI. 3. Moderate, 50%, nonobstructive CAD involving OM1. LHC - EDP 9 mm Hg. Hemodynamics- normal BP. Complications: None Disposition: ASA indefinitely, Plavix for at least 1 yr. Postoperative Condition: stable The procedure was performed using moderate conscious sedation. The patient was monitored utilizing continuous pulse oximetry, continuous telemetry and intermittent blood pressure measurements throughout the procedure without notable aberration in vitals. Please see the patient's procedure log for fur ther information. Physician start time 12:17 pm. Physician stop time 12:51 pm. hysician Pre Procedure Evaluation - Madi Gilliland MD - 07/22/2021 11:51 AM CDT MODERATE SEDATION: Moderate Sedation Adult Without Short Form Physician Pre- Procedure Sedation Plan (Moderate Sedation) (Note: A complete H&P is required for procedures requiring anesthesia and for inpatients.) Indication for Care: I affirm the indication for the procedure is still present. History & Physical: An up to date H&P has been completed and is available for this procedure. Date of H&P: 07/20/21. Chief Complaint/HPI/Reason for Procedure: NSTEMI. Sedation Plan: Moderate Sedation: ASA Score = 3 Mallampati Class = II (soft palate, uvula, fauces visible) Physician's Affirmation of Discussion: I have explained the known risks, benefits, goals, and alternatives to the procedure or treatment and/or sedation. I affirm the indication for the procedure is still present. I have assessed the patient and vital signs immediately prior to sedation and concur with sedation plan. ase Mgmt - Samina Nicole LSW - 07/22/2021 10:44 AM CDT CASE MANAGEMENT / SOCIAL SERVICE TRANSITION PLAN - INITIAL ASSESSMENT TRANSITION PLAN: Will Continue to Follow for Support and Progression Towards Final Transition Plan BARRIERS TO TRANSITION: Discharge Needs to be Determined Medical barriers:.pain mgmt, tele, cardiology following COMMENTS / PATIENT AND FAMILY RESPONSE TO PLAN: Reviewed patient's medical record, Met with patient at bedside and reviewed the role of a oncology social work in case management. Offered support and active listening. Patient lives with . Patient is independent with cares and denies the use of any DME. Patient manages own medications and sees a PCP regularly. Patient's to provide tr ansportation at discharge. Patient hopeful to return home with spouse when medically ready. Will continue to follow and await recommendations from treatment team. ADMISSION DX: nstemi PATIENT STATUS: Inpatient RELEASE OF INFORMATION: Yes -- verbal for: discharge planning SOURCES OF INFORMATION (See demographics for contact information): Medical Record Patient CURRENT LIVING SITUATION / LEVEL OF ASSISTANCE: Lives with Independent COMMUNITY SERVICES: None HEALTHCARE DIRECTIVE: Yes-On File and reviewed POWER OF CSR: Healthcare Power of Cardiac Care Nurse FINANCIAL CONCERNS: No Concerns PRIMARY CARE PHYSICIAN: Yes Michael Hinojosa MD : No IS PATIENT'S ADMISSION ASSOCIATED WITH TIA, ISCHEMIC, OR HEMORRHAGIC STROKE?: No LANGUAGE / COMMUNICATION BARRIERS: No PATIENT / SUBSTITUTE DECISION MAKER GOAL UPON TRANSITION: First Choice: Home: Family/Friend Support ANTICIPATED NEEDS, TRANSITION CHOICES OFFERED: Home: Family/Friend Support RESOURCE(S) PROVIDED: nothing needed at this time DOES PATIENT HAVE CLOTHING TO WEAR AT DISCHARGE? Yes ANTICIPATED MODE OF TRANSPORT UPON DISCHARGE: Family Car VERIFIED CORRECT PHARMACY IS ENTERED FOR DISCHARGE: Yes - Pharmacy: [phone] CURRENT READMISSION RISK SCORE Predictive Risk Score Risk of Unplanned Readmission: 17.1 Please refer to readmission risk assessment flowsheet for further details. SIGNED: CHEY Marquez Case Management - 8AB [facility] | Pager: [phone] OCN / Skin Team - Rosa Billingsley RN - 07/22/2021 8:55 AM CDT Wound Care Nurse Visit: Location of visit: Hospital 8AB Indication for visit: Consulted to assess skin tear to Right AC from adhesive tape removal. Patient states that lab had taken tape off his skin in this area and his skin came right with it. Patient has scattered scarring to his skin that appears to be from skin tears. Assessment: Location of wound: Right AC Status: acute Wound type: traumatic Pain: Patient does not rate pain, but states that it is sensitive, especially with cleansing. Wound Configuration: Dimension: length: 1.5 cm, width: 2.5 cm and superficial Wound Bed: Before debridement: Color: red After debridement: not indicated Ifrah-wound skin: intact Wound exudate: bloody and Amount: small Wound Odor: no Treatment per wound care protocols: Wound Irrigation/Cleansing: wash with mild soap and water Selective debridement: sharp-scissors/pick-ups non-viable rolled up skin trimmed Dressing Type per wound care protocols: Dressinx4 gauze, conform and Xeroform Recommendations / Plan: Wash wound daily with mild soap and water using a washcloth, pat dry. Apply single layer of xeroformto open area, cover with one dry 4x4 gauze folded in half. Hold in place with conform wrap, secure with paper tape. Try to not use tape on patient's skin. If tape is needed, please use paper tape. plaster form maker to follow while patient is in the hospital. are Nik - Selene Obrien RN - 07/22/2021 7:14 AM CDT Problem: PHYSICAL COMFORT Goal: CLIENT SATISFACTION: PAIN MANAGEMENT Description: DEFINITION: Extent of positive perception of nursing care to relieve pain. 1=Not at all satisfied, 2=Somewhat satisfied, 3=Moderately satisfied, 4=Very satisfied, 5=Completely satisfied. Outcome: NOC Rating 3 Flowsheets (Taken 07/22/2021 0644) Plan of care reviewed with: Patient Patient Progress: PRN Oxycodone given for 5/10 back pain, pt verbalised some relief, noted resting quietly. Denied chest pain during shift. Heparin drip infusing well. Problem: RISK FOR DECREASED CARDIAC TISSUE PERFUSION Goal: ACTIVITY TOLERANCE Description: DESCRIPTION: Physiologic response to energy-consuming movements with daily activities. 1=Severly compromised, 2=Substantially compromised, 3=Moderately compromised, 4=Mildly compromised, 5=Not compromised. Outcome: NOC Rating 3 Flowsheets (Taken 07/22/2021 0684) Plan of care reviewed with: Patient Patient Progress: SpO2 WNL on room air. Afib per telemetry, denied chest pain. PY=407/97, PRN Labetalol given as ordered, rechecked BM=187/88 and pt refused PRN med at this time, denied pain. Will continue to monitor Goal: CARDIOPULMONARY STATUS Description: DESCRIPTION: Adequacy of blood volume ejected from the ventricles in exchange of carbondioxide and oxygen at the alveolar level. 1=Severe deviation from normal range, 2=Substantial deviation from normal range, 3=Moderate deviation from normal range, 4=Mild deviation from normal range, 5=No deviation from normal range. Outcome: NOC Rating 3 linical Team - Selene Obrien RN - 07/22/2021 2:20 AM CDT 0220 Patient noted with skin tear to the right antecubital area. Per patient report, it was due to atape that was removed by the glass bulb silverer during yesterday morning's lab draw. Area noted with dressing, dressing removed by Rescue RN. Open area cleansed with gauze moistened with NS, pat dried and Mep ilex foam dressing applied. Photographs taken, wound care consult in place. are Planning - Mehnaz Callahan RN - 07/21/2021 9:56 AM CDT Problem: RISK FOR FALLS Goal: FALL PREVENTION BEHAVIOR Description: DEFINITION: Personal or family career specialist actions to minimize risk factors that might precipitate falls in the personal environment. 1=Never demonstrated, 2=Rarely demonstrated, 3=Sometimes demonstrated, 4=Often demonstrated, 5=Consistently demonstrated. Outcome: NOC Rating 3 Flowsheets (Taken 07/21/2021 1405) Initial Score: 3 Target Score: 5 Plan of care reviewed with: Patient Patient specific goal for the day: Patient will utilize call light appropriately when needing assistance. Patient specific goal for the stay: Patient will not have a fall this stay. Achieve goal for stay: By discharge Patient Progress: Patient was educated on how to use call light and when to use call light. Chair alarm and bed alarm in place. Patient has been seen getting up without help, re-educated the patient onimportance of calling for assistance. linical Team - Selene Obrien RN - 07/20/2021 7:45 PM CDT Upon admission to 8AB room 808, skin assessment completed with Selene Live RN. Upon skin assessment including pressure points findings include: Scattered redness and scabs to bilateral de la paz/lower leg and arms Abrasions to bilateral knee Blanchable redness to coccyx Blanchable redness to bilateral elbow Blanchable redness to bilateral heel Plan/Intervention: Keep skin clean and moisturised Encourage to reposition/turn while in bed Offload heels/elbows documented in this encounter Plan of Treatment Date Type Specialty Care Team Description 07/30/2021 Ancillary Procedure Radiology 07/30/2021 Office Visit Neurosurgery Jn Recinos MD [address] [place] [address] [phone] 07/31/2021 Office Visit Family Practice Ryan Thomason W, DO [address] [place] [address] 580 75 [phone] Name Type Priority Associated Diagnoses Date/Ti nh CULTURE, BLOOD MICROBIOLOGY REPORT LOU 2020 11:30 AM CDT CULTURE, BLOOD MICROBIOLOGY REPORT LOU 2020 11:30 AM CDT Name Type Priority Associated Order Schedule Diagnoses CULTURE, BLOOD MICROBIOLOGY REPORT LOU Once f or 1 Occurrences starting 2020 until CULTURE, BLOOD MICROBIOLOGY REPORT LOU Once f or 1 Occurrences starting 2020 until BASIC METABOLIC Lab Routine Early AM dra mora for PANEL labs until discontinued starting 2020 COMPLETE BLOOD COUNT Lab Routine Early A M draw for WITH DIFFERENTIAL labs until discontinued starting 2020 Name Type Priority Associated Diagnoses Order S chedule CLINIC REFERRAL Referral Routine Non-rheumatic mitral Orde red: 07/23/2021 STRUCTURAL HEART regurgitation PROGRAM ONE CHART CLINIC REFERRAL Referral Routine Non-rheumatic mitral Orde red: 07/24/2021 STRUCTURAL HEART regurgitation PROGRAM ONE CHART documented as of this encounter Implants Implanted Type Area Diesel Mechanic Apprentice Device Shelf Model / Identifier Expiration Serial / Lot Date [employer] Rev [id number] N /A R ight: REBECCA 05/04/2028 / Implanted: Qty: 1 on 08/30/2018 by Darrell Valdivia MD at [facility] N/A / [id number] Description:verified by Dr Pedrito Madrid Rev Tm Base Post 15mm N /A Right: SHOULDER REBECCA 08/04/2028 / Implanted: Qty: 1 on 08/30/2018 by Darrell Valdivia MD at [facility] N/A / [id number] Description:verified by Dr Pedrito Madrid Screw Rvrs 4.5x36mm N .036 - /A Right: SHOULDER REBECCA 03/04/202323.036 / Implanted: Qty: 1 on 08/30/2018 by Darrell Valdivia MD at [facility] N/A / [id number] Description:verified by Dr Pedrito Madrid Screw Rvrs 4.5x36mm N .036 - /A Right: SHOULDER REBECCA 03/04/2023.87663.036 / Implanted: Qty: 1 on 08/30/2018 by Darrell Valdivia MD at [facility] N/A / [id number] Description:verified by Dr Pedrito Madrid Gleno Trabecular [id number] N /A Right: SHOULDER REBECCA 04/03/2028 / Implanted: Qty: 1 on 08/30/2018 by Darrell Valdivia MD at [facility] N/A / [id number] Description:verified by Dr Pedrito Madrid Lnr Rvrs Zimm +3 36mm N [id number] - Sn/A Right: SHOULDER REBECCA 10/04/[id number] / Implanted: Qty: 1 on 08/30/2018 by Darrell Valdivia MD at [facility] N/A / [id number] Description:verified by Dr Major documented as of this encounter Procedures Procedure Name Priority Date/Time Associated Comments Diagnosis LAB ONLY-URINE Routine 07/23/2021 5:31 Results f or this MICROSCOPIC REFLEX PM CDT procedure are in the results section. URINE DIP, REFLEX TO Routine 07/23/2021 5:31 Res ults for this MICROSCOPIC, REFLEX TO PM CDT proce dure are in CULTURE the results section. XRAY CHEST PORTABLE Routine 07/23/2021 4:12 Resu lts for this PM CDT procedure are i n the results section. ECHO TRANSESOPHAGEAL Routine 07/23/2021 10:39 Res ults for this AM CDT procedure are i n the results section. LAB ONLY-COMPLETE Routine 07/23/2021 8:43 Result s for this BLOOD COUNT WITH AM CDT procedure a re in DIFFERENTIAL the results section. BASIC METABOLIC PANEL Routine 07/23/2021 8:43 Re sults for this AM CDT procedure are i n the results section. LAB ONLY-COMPLETE Routine 07/23/2021 8:43 Result s for this BLOOD COUNT WITH AM CDT procedure a re in DIFFERENTIAL the results section. EKG Routine 07/22/2021 3:42 Results for this PM CDT procedure are i n the results section. EKG STAT 07/22/2021 1:43 Results for this PM CDT procedure are i n the results section. ACTIVATED CLOTTING Routine 07/22/2021 12:43 Resul ts for this TIME POCT PM CDT procedure are i n the results section. ACTIVATED CLOTTING Routine 07/22/2021 12:34 Resul ts for this TIME POCT PM CDT procedure are i n the results section. CARDIAC CATH POSSIBLE Routine 07/22/2021 12:30 Re sults for this ANGIOPLASTY STENT CATH PM CDT proce dure are in LAB the results section. LAB ONLY-COMPLETE STAT 07/22/2021 10:44 Result s for this BLOOD COUNT WITH AM CDT procedure a re in DIFFERENTIAL the results section. PTT Timed Routine 07/22/2021 10:44 Results fo r this AM CDT procedure are i n the results section. BASIC METABOLIC PANEL STAT 07/22/2021 10:44 Re sults for this AM CDT procedure are i n the results section. LAB ONLY-COMPLETE STAT 07/22/2021 10:44 Result s for this BLOOD COUNT WITH AM CDT procedure a re in DIFFERENTIAL the results section. PTT Timed Routine 07/22/2021 3:17 Results fo r this AM CDT procedure are i n the results section. BRAIN NATRIURETIC Routine 07/22/2021 3:17 Result s for this PEPTIDE AM CDT procedure are i n the results section. ECHO ADULT COMPLETE Routine 07/21/2021 4:25 Resu lts for this PM CDT procedure are i n the results section. EKG LOU 07/21/2021 12:33 Results for this PM CDT procedure are i n the results section. PTT LOU 07/21/2021 10:50 Results for this AM CDT procedure are i n the results section. TROPONIN I Timed Routine 07/21/2021 5:09 Results fo r this AM CDT procedure are i n the results section. TROPONIN I Timed Routine 07/21/2021 12:41 Results fo r this AM CDT procedure are i n the results section. LAB ONLY-COMPLETE Routine 07/20/2021 9:40 Result s for this BLOOD COUNT WITH PM CDT procedure a re in DIFFERENTIAL the results section. TROPONIN I Timed Routine 07/20/2021 9:40 Results fo r this PM CDT procedure are i n the results section. COMPREHENSIVE Routine 07/20/2021 9:40 Results fo r this METABOLIC PANEL PM CDT procedure ar e in the results section. LAB ONLY-COMPLETE Routine 07/20/2021 9:40 Result s for this BLOOD COUNT WITH PM CDT procedure a re in DIFFERENTIAL the results section. documented in this encounter Results LAB ONLY-URINE MICROSCOPIC REFLEX (07/23/2021 5:31 PM CDT) WBC Urine 0-5 /hpf Negative, 0-5 [facility] /hpf CLINIC RBC Urine 0-2 /hpf Negative, 0-2 [facility] /hpf CLINIC Squamous Occ (0-10) /lpf Negative, Occ [facility] Epithelial Cells (0-10) /lpf, Few CLINIC (11-20) /lpf Bacteria Negative Negative [place] [address] [facility] Hyaline Cast 0-2 /lpf 0-2 /lpf [address] Specimen Urine - Urine specimen obtained by clean catch procedure (specimen) Narrative Performed At Culture not performed - reflex criteria not met. [address] Culture is only performed when the urine macroscopic c olor is reported as [place], or whentwoor more of th e following criteria are met: Positive Nitrite, Positive Leukocyte Esterase, WBC's > 5 cells/hpf. Performing Organization Address [facility]/ZIP Code Phon e Number [place] [address] [facility] [address] [place] [address], [place] [address] URINE DIP, REFLEX TO MICROSCOPIC, REFLEX TO CULTURE (07/23/2021 5:31 PM CDT) Color Urine Yellow Lilly, Dark [place] [address] Yellow, Straw, CLINIC Yellow, Colorless Clarity Urine Clear Clear [address] Glucose Urine Negative Negative [address] Bilirubin Urine Negative Negative [address] Ketones Urine Negative Negative, 5 [place] [address] mg/dL, 10 mg/dL [facility] Specific Lynn 1.037 (H) 1.002 - 1.[address] Blood Urine Negative Negative [address] PH Urine 5.5 5.0, 5.5, 6.0, [place] [address] 6.5, 7.0, 7.5, CLINIC 8.0 Protein Urine Trace (10-20) Negative [place] [address] mg/dL (A) [facility] Urobilinogen >= 4 mg/dL (A) < 2 mg/dL [address] Nitrite Negative Negative [address] Leukocyte Esterase Negative Negative [place] [address] Urine CLINIC Specimen Urine - Urine specimen obtained by clean catch procedure (specimen) Narrative Performed At Microscopic Exam Reflexed [address] Performing Organization Address City/[facility]/ZIP Code Phon e Number [place] [address] [facility] [address] [place] [address], [place] [address] XRAY CHEST PORTABLE - (07/23/2021 4:12 PM CDT) Specimen Narrative Performed At This result has an attachment that is no t available. [id number] Patient Name: MICHAEL BACON Date of : 1940 Procedure: XRAY CHEST PORTABLE Date of Service: 07/23/2021 EXAM: XRAY CHEST PORTABLE INDICATION:fever COMPARISON(S): None Available FINDINGS/IMPRESSION: The cardiac silhouette is unremarkable. There are hazy airspace opacities in the lungs mostly in the periphery which can be seen with atypical infectious process with edema considered less likely. No ef fusion or pneumothorax. Right shoulder arthroplasty no chino. Finalized by: Clif Tejeda MD on 07/23/2021 5:05 PM CDT Patient/Procedure Information: [facility] MRN/KANDIS: [id number] Order Number: [id number] Accession Number: [id number] Ordering Provider: TED WALLACE Authorizing Provider: TED WALLACE Procedure Note Olinda, Remediosantres - 07/23/2021 5:07 PM CDT Patient Name: MICHAEL BACON Date of : 1940 Procedure: XRAY CHEST PORTABLE Date of Service: 07/23/2021 EXAM: XRAY CHEST PORTABLE INDICATION:fever COMPARISON(S): None Available FINDINGS/IMPRESSION: The cardiac silhouette is unremarkable. There are hazy airspace opacities in the lungs mostly in the periphery which can be seen with atypical infectious process with edema considered less likely. No effusion or pneumothorax. Right shoulder arthroplast y noted. Finalized by: Clif Tejeda MD on 07/23/20 5:05 PM CDT Patient/Procedure Information: [facility] MRN/KANDIS: [id number] Order Number: [id number] Accession Number: [id number] Ordering Provider: TED WALLACE Authorizing Provider: TED WALLACE Performing Organization Address City/State/ZIP Code Phon e Number [id number] ECHO TRANSESOPHAGEAL (07/23/2021 10:39 AM CDT) Specimen Narrative Performed At This result has an attachment that is no t available. [facility] Patient: MICHAEL BACON MR#: [id number] Exam Date: 07/23/2021 Transesophageal Echocardiogram [facility] [address] [place] [address] BP: 114/72 mmHg HR: 87 bpm : 1940 Exam Location: Bedside Height: 70.00 "(177.8 cm) Age: 81 year(s) Patient Room: 808 01 Weight: 151 lbs.(68.49 kg) Gender: Male Patient Status: Inpatient BSA: 1.85 m2 Negative Developer: LILO GUAAJRDO (AE,PE) Reading Physician: HANG CARMONA DO Ordering Physician: RACHEL GUERRA Referring Physician: LAMONTE JUNG MD Nurse: ARMANDO Gutiérrez RN Nurse: NAOMI GARAY RN Procedure Indication(s): Mitral regur gitation Examination: VIJAY with 2D imaging, Limited Spectral Doppler, Color Doppler,3D imaging requiring image post-processing on the machine,Agitated saline Exam Comments The cardiac rhythm is atrial fibrillation Conclusions Left Ventricle: Normal left ventricular systolic function. Left Atrial Appendage: No thrombus in left atrial appendage. Mitral Valve: There is prolapse involving the A2 and P 2 leaflets. Severe mitral regurgitation. Right Atrium: Dilated right atrium by visual assessment. Tricuspid Valve: Moderate tricuspid regurgitation. Comparison Study Comparison Date: 07/21/2021 Comparison Study: Transthoracic Echocardiogram There was no significant change from prior echo Findings Left Ventricle: Normal left ventricular size. Increased left ventricular wall thickness. Normal left ventricular systolic function. Left Atrium: Dilated left atrium by visual assessment. Left Atrial Appendage: No thrombus in left atrial appendage. Aortic Valve: Mild aortic cuspal thickening. Trivial aortic regurgit ation. 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 Mitral Valve: Rtef-rx-brgfxmyq mitral Leaflet thickeni ng. There is prolapse involving the A2 and P2 leaflets. Severe mitral regurgitation. Multiple mitral regurgitant jets. IAS: No evidence of an atrial shunt by agitated saline or c olor doppler. Right Ventricle: Normal right ventricular size. Normal ri ght ventricular systolic function. Normal right ventricular wall thickness. Pulmonary Vein: The pulmonary venous flow demonstrates a blunted S-wav e. Right Atrium: Dilated right atrium by visual assessment. Tricuspid Valve: Mild tricuspid leaflet thickening. Moderate tricuspid regurgitation. Pulmonic Valve: Normal pulmonary valve structure. Trivial pulmonary re gurgitation. Exam Details VIJAY Probe #: 5 VIJAY Probe Type: An adult omniplane probe was inserted by the attending community relations rep. Passing of Probe: T rouble-free probe introduction and examination Complications: No complications during the examination Medications Date Med Name Med Route Dose Units Comment 07/23/2021 Midazolam Intravenous 2 milligrams 07/23/2021 Fentanyl Intravenous 75 micrograms 07/23/2021 0.9% Normal Saline Intravenous 200 milliliters 07/23/2021 2% Viscous Lidocaine Oral 10 milliliters Measurements Heart Rate Label Value Norm al Value Heart Rate 87 bpm Electronically signed by HANG CARMONA DO on 07/23 at 04:40 PM (No Signature Object) Procedure Note [employer] Results No Pull Forward - 07/23/2021 4:42 PM CDT Patient: MICHAEL BACON MR#: [id number] Exam Date: 07/23/2021 Transesophageal Echocardiogram [facility] [address] [place] [address] BP: 114/72 mmHg HR: 87 bpm : 1940 Exa m Location: Bedside Height: 70.00 "(177.8 cm) Age: 81 year(s) Pat ient Room: [facility] Weight: 151 lbs.(68.49 kg) Gender: Male Pat ient Status: Inpatient BSA: 1.85 m2 Negative Developer: LILO VILLELA (AE,PE) Reading Physician: HANG BACH DO Ordering Physician: RACHEL GURROLA Referring Physician: LAMONTE JACKSON MD Nurse: ARMANDO FRANCISCO RN Nurse: NAOMI LOVE RN Procedure Indication(s): Mitral regurgitation Examination: VIJAY wit h 2D imaging, Limited Spectral Doppler, Color Doppler,3D imaging requiring image post-processing on the machine,Agitated saline Exam Comments The car diac rhythm is atrial fibrillation Conclusions Left Ventricle: Normal left ventricular systolic functio n. Left Atrial Appendage: No thrombus in left atrial appendage. Mitral Valve: There is prolapse involving the A2 and P 2 leaflets. Severe mitral regurgitation. Right Atrium: Dilated right atrium by visual assessmen t. Tricuspid Valve: Moderate tricuspid regurgitation. Comparison Study Comparison Date: 07/21/2021 Comparison Study: Transthoracic Echocard iogram There was no significant change from yumi or echo Findings Left Ventricle: Normal left ventricular size. Increased left ventricular wall thickness. Normal left ventricular systolic function. Left Atrium: Dilated left atrium by visual assessment . Left Atrial Appendage: No thrombus in left atrial appendage. Aortic Valve: Mild aortic cuspal thickening. Trivial a ortic regurgitation. 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 Mitral Valve: Ebde-zr-sxgytgwo mitral Leaflet thickeni ng. There is prolapse involving the A2 and P2 leaflets. Severe mitral regurgitation. Multiple mitral regurgitant jets. IAS: No evidence of an atrial shunt by itat ed saline or color doppler. Right Ventricle: Normal right ventricular size. Normal ri ght ventricular systolic function. Normal right ventricular wall thickness. Pulmonary Vein: The pulmonary venous flow demonstrates a blunted S-wave. Right Atrium: Dilated right atrium by visual assessmen t. Tricuspid Valve: Mild tricuspid leaflet thickening. Moder ate tricuspid regurgitation. Pulmonic Valve: Normal pulmonary valve structure. Trivia l pulmonary regurgitation. Exam Details VIJAY Probe #: 5 VIJAY Probe Type: An adult omniplane probe was inserted by the attending community relations rep. Passing of Probe: Trouble- free probe introduction and examination Complications: No compl ications during the examination Medications Date Med Name M ed Route Dose Units Comment 07/23/2021 Midazolam I ntravenous 2 milligrams 07/23/2021 Fentanyl I ntravenous 75 micrograms 07/23/2021 0.9% Normal Saline I ntravenous 200 milliliters 07/23/2021 2% Viscous Lidocaine O ral 10 milliliters Measurements Heart Rate Label Value Nor mal Value Heart Rate 87 bpm (No Signature Object) Performing Organization Address City/State/ZIP Code Phon e Number [facility] F, [place] LAB ONLY-COMPLETE BLOOD COUNT WITH DIFFERENTIAL (07/23/2021 8:43 AM CDT) Pathologist Sig nature WBC 8.6 4.0 - 11.0 K/uL [address] RBC 4.22 (L) 4.40 - 5.[address] M/uL Hemoglobin 13.2 (L) 13.5 - 17.[address] g/dL Hematocrit 39.6 (L) 40.0 - 50.0 % [address] MCV 93.8 80.0 - 98.[address] MCH 31.3 25.5 - 34.[address] MCHC 33.3 31.5 - 36.[address] g/dL RDW-CV 14.8 11.5 - 15.5 % [address] RDW-SD 50.8 (H) 35.5 - 50.[address] Platelet Count 181 140 - 400 K/uL [address] MPV 9.7 8.5 - 12.[address] Seg Neut Absolute 5.9 1.8 - 8.0 K/uL [address] Lymphocytes Absolute 1.0 0.8 - 4.1 K/uL [place] [address] CLINI C Monocytes Absolute 1.3 (H) 0.0 - 1.0 K/uL [address] Eosinophils Absolute 0.1 0.0 - 0.7 K/uL [place] [address] CLINI C Basophil Absolute 0.1 0.0 - 0.2 K/uL [address] Immature Granulocyte 0.16 (H) 0.00 - 0.06 10 [address] Absolute K/uL Neutrophils Abs. 5,900 /uL [address] (Segs and Bands) Neutrophils Percent 69.0 % [address] Lymphocytes Percent 11.7 % [address] Monocytes Percent 15.1 % [address] Immature Granulocyte 1.9 % [address] Percent Eosinophils Percent 1.6 % [address] Basophil Percent 0.7 % [address] Nucleated RBC 0 /[address] Specimen Blood - Blood specimen (specimen) Performing Organization Address City/State/ZIP Code Phon e Number [address] [place] [address] BASIC METABOLIC PANEL (07/23/2021 8:43 AM CDT) Pathologist Sig nature Glucose 83 70 - 99 mg/dL [address] BUN 35 (H) 6 - 22 mg/dL [address] Creatinine 1.22 0.70 - 1.[address] mg/dL BUN/Creatinine Ratio 28.7 (H) 10.0 - 25.[address] Sodium 136 136 - 145 meq/L [address] Potassium 3.9 3.5 - 5.1 meq/L [address] Chloride 105 98 - 109 meq/L [place] [address] [facility] CO2 23 20 - 29 meq/L [address] Anion Gap with K 12 6 - 20 meq/L [address] Calcium 8.9 8.5 - 10.[address] mg/dL Age [address] eGFR Non- 57 (L) >=[address] Moroccan mL/min/1.73m2 eGFR 69 >=[address] mL/min/1.73m2 Specimen Blood - Blood specimen (specimen) Performing Organization Address City/[facility] Phon e Number [address] [address] EKG to be done 3 hours post coronary intervention (07/22/2021 3:42 PM CDT)Only the most recent of3 resultswithin the time period is included. Pathologist Sig nature EKG [employer] Atrial fibrillation with pre mature ventricular or aberrantly conducted complexes Abnormal ECG When compared with ECG of 22-JUL-2021 13:43, No significant change was found Ventricular Rate: 74 BPM QRS Duration: 84 ms Q-T Interval: 410 ms QTc Calculation(Bazett): 455 ms Calculated R Anabel: -26 degrees Calculated T Anabel: 74 degrees Specimen Narrative Performed At This result has an attachment that is no t available. Performing Organization Address City/[facility]/ZIP Code Phon e Number [employer] ACTIVATED CLOTTING TIME POCT (07/22/2021 12:43 PM CDT) Pathologist Sig nature Activated Clotting 224 (H) 100 - 150 Secs [facility] POINT OF CARE TESTING Specimen Blood - Blood specimen (specimen) Narrative Performed At DEVICE: [id number] [facility] POINT OF CARE TESTING Performing Organization Address City/[facility]/ZIP Code Phon e Number [facility] POINT [address] [facility], [place] [address] 04 OF CARE TESTING ACTIVATED CLOTTING TIME POCT (07/22/2021 12:34 PM CDT) Pathologist Sig nature Activated Clotting 125 100 - 150 Secs [facility] POINT OF CARE TESTING Specimen Blood - Blood specimen (specimen) Narrative Performed At DEVICE: [id number] [facility] POINT OF CARE TESTING Performing Organization Address City/State/ZIP Code Phon e Number [facility] POINT [address] [place], [place] [address] 04 OF CARE TESTING Cardiac Cath Possible Angioplasty Stent Gang Boss - Left; With grafts? No (07/22/2021 12:30 PM CDT) Specimen Narrative Performed At This result has an attachment that is no t available. [facility] Patient: MICHAEL BACON [facility] Exam Date: 07/22/[address] Exam Quentin e: 12:30 PM-12:51 PM [place], [place] [id number] Department of Interventional Cardiology Diagnostic Left Heart Catheterization Report : 1940 Fluoro Time: 10.0 min. Patient Status: Inpatient Age: 81 year(s) Cath Status: Patient Room: [facility] Gender: Male Referring Physician: LAMONTE JUNG MD Diagnostic Certified Court Interpreter: MADI GILLILAND MD Facility Environmental Technician: MADI GILLILAND MD Indication: Angina/SD: myocardial infa rction without ST elevation (NSTEMI). Diagnostic Conclusions: - There is significant double vessel coronary artery d isease Interventional Conclusions: - A successful intervention of the LAD w as performed with a NADIR. 0% residual stenosis post PCI. Interventional Summary Proximal left anterior descending: A suc cessful Drug Eluting Stent was deployed using a RESOLUTE VIDA RX3.74K50TW. Procedures Performed: Fluoro 0.1-60 Minutes. Medication/Infusi on/Drip. Art Access - R femoral artery*. Selective Lt Coronary Angiography. Selective Rt Coronary Angiography. Activated Clott ing Time. PTCA. Left Heart Cath No Ventriculogram. Drug Eluting Stent Placement. Annabel Femoral Artery Injected for Closure Place. Hemosta sis w/ Perclose. Diagnostic Findings: Coronary Angiography The coronary circulation is left dominant. Left Main Left main artery: The segment is large. Angiography sh ows no disease. Left Anterior Descending Left anterior descending artery: The seg ment is large. Proximal left anterior descending: There is a 70 % stenosis. Mid left anterior descending: The previously plac ed stent is patent. First diagonal: The segment is small. Angiography shows no disease. Circumflex Circumflex artery: The segment is large. Angiography shows no disease. First obtuse marginal: The segment is large. There is a 50 % stenosis in the mid port ion of the segment. First left posterolateral: The segment is moderately sized. Angiography shows no disease. Left poste rolateral descending artery: The segment is moderately sized. Angiography shows no disease. Right Coronary Right coronary artery: The segment is sm all. Proximal right coronary artery: There is a 90 % stenosis. Right posterior descending artery: Angiography shows no disease. Left Heart Cath Ejection fraction was not calculated. Interventional Findings: Interventional Details Proximal left anterior descending: The i nitial stenosis was 70 %. This was an ACC/AHA High/C lesion for intervention. Guidewire crossing was successful. A successful Balloon angioplasty was per formed using a CATH GUIDE 6FR LAUNCHER 6EBU3.75 during setup, a RUNTHROUGH XT FLOPPY during setup, and a NC EUPHORA RX 3.5X12 During Procedure. The total number of attempt(s) was 4. Th e maximum inflation pressure was 18(erin). A successful Drug Eluting Stent was depl oyed using a RESOLUTE VIDA RX3.28E98UD During Procedure. The total number of attempt(s) was 1. Th e maximum inflation pressure was 12(erin). There was BEHZAD Flow 3 before the procedu re and BEHZAD Flow 3 following the procedure. No significant vessel dissection noted. Procedure Narrative: Access Right femoral artery: The puncture site was infiltrated with 1 % Lidocaine. Vascular access was obtained and a 5F MICROPUNCTURE SET 45-754 was advanced in to the vessel. The sheath was exchanged from a 5F MICROPUNCTURE SET 45-754 sheath to a GLIDESHEATH PNCLE TIF TIP 6FR sheath. Hemostasis/Sheath Status: Hemostasis was successful using a(n) PERCLOSE VASCULAR SURG SYSTEM 6F PROGLIDE. Coronary Angiography Left Coronary System: A catheter was positioned into the Vesse l Ostium under fluoroscopic guidance. Contrast injections were performed using hand injection. Angiograms were obtain ed in multiple views. Right Coronary System: A catheter was positioned into the Vesse l Ostium under fluoroscopic guidance. Contrast injections were performed using hand injection. Angiograms were obtain ed in multiple views. Hemodynamic Impressions General Impressions: Hemodynamic assessm ent demonstrates No systemic hypertension, Left ventricular end diastolic pressure is normal. Hemodynamic Findings Pressures: Baseline: LV pressure 131mm Hg, EDP 3. Baseline: AO pressure 131/68mmHg, mean 90. Hemodynamic Pressures-Phase: Baseline Location : LV Pressure s : 131 mmHg Pressure ed : 3 mmHg HR : 82 bpm Hemodynamic Pressures-Phase: Baseline Location : Ao Pressure s : 131 mmHg Pressure d : 68 mmHg Pressure m : 90 mmHg HR : 72 bpm Acute complication: No complications Contrast: Description Dose Unit HIS No. Reference No. Serial No. Lot No. Omnipaque [id number] 0 ml C34 C34 X-Ray: Exam total DAP: 5636.00 cGycm- sq Air Kerma/Exam Total Dose: 516 mGy Ordering Physician: HANG CARMONA DO CCL New Car Make Ready Worker: CARLY WARREN RN Scrub: CORY Haddad Monitor: VANNESA TELLO Metallurgical Lab Technician: JENNIFER MCDANIELS RT(R) Primary Certified Court Interpreter: HANG CARMONA DO Diagnostic Physician Signature: 21 at 02:21 PM (No Signature Object) Interventional Physician Signature: (No Signature Object) Procedure Note Interface, Inc Results No Pull Forward - 07/23/2021 2:22 PM CDT Patient: MICHAEL BACON [facility] Exam Date: 07/22/[address] Exam Time: 12:30 PM-12:51 PM [facility] [id number] [facility] Left Heart Catheterization Re port : 1940 Fluoro Time: 10.0 min. Patient Status: Inpatient Age: 81 year(s) Cath Status: Patient Room: [facility] Gender: Male Referring Physician: LAMONTE JUNG MD Diagnostic Certified Court Interpreter: MADI DINH MD Facility Environmental Technician: MADI DINH MD Indication: Angina/SD: myocardial infar ction without ST elevation (NSTEMI). Diagnostic Conclusions: - There is significant double vessel cor onary artery disease Interventional Conclusions: - A successful intervention of the LAD w as performed with a NADIR. 0% residual stenosis post PCI. Interventional Summary Proximal left anterior descending: A suc cessful Drug Eluting Stent was deployed using a RESOLUTE VIDA RX3.94C57MB. Procedures Performed: Fluoro 0.1-60 Minutes. Medication/Infusi on/Drip. Art Access - R femoral artery*. Selective Lt Coronary Angiography. Selective Rt Coronary Angiography. Activated Clott ing Time. PTCA. Left Heart Cath No Ventriculogram. Drug Eluting Stent Placement. Annabel Femoral Artery Injected for Closure Place. Hemostasis w/ Perclose. Diagnostic Findings: Coronary Angiography The coronary circulation is left dominan t. Left Main Left main artery: The segment is large. Angiography shows no disease. Left Anterior Descending Left anterior descending artery: The seg ment is large. Proximal left anterior descending: There is a 70 % stenosis. Mid left anterior descending: The previously plac ed stent is patent. First diagonal: The segment is small. Angiography shows no disease. Circumflex Circumflex artery: The segment is large. Angiography shows no disease. First obtuse marginal: The segment is large. There is a 50 % stenosis in the mid port ion of the segment. First left posterolateral: The segment is moderately sized. Angiography shows no disease. Left poste rolateral descending artery: The segment is moderately sized. Angiography shows no disease. Right Coronary Right coronary artery: The segment is sm all. Proximal right coronary artery: There is a 90 % stenosis. Right posterior descending artery: Angiography shows no disease. Left Heart Cath Ejection fraction was not calculated. Interventional Findings: Interventional Details Proximal left anterior descending: The i nitial stenosis was 70 %. This was an ACC/AHA High/C lesion for intervention. Guidewire crossing was successful. A successful Balloon angioplasty was per formed using a CATH GUIDE 6FR LAUNCHER 6EBU3.75 during setup, a RUNTHROUGH XT FLOPPY during setup, and a NC EUPHORA RX 3.5X12 During Procedure. The total number of attempt(s) was 4. Th e maximum inflation pressure was 18(erin). A successful Drug Eluting Stent was depl oyed using a RESOLUTE VIDA RX3.43K60DL During Procedure. The total number of attempt(s) was 1. Th e maximum inflation pressure was 12(erin). There was BEHZAD Flow 3 before the procedu re and BEHZAD Flow 3 following the procedure. No significant vessel dissection noted. Procedure Narrative: Access Right femoral artery: The puncture site was infiltrated with 1 % Lidocaine. Vascular access was obtained and a 5F MICROPUNCTURE SET 45-754 was advanced in to the vessel. The sheath was exchanged from a 5F MICROPUNCTURE SET 45-754 sheath to a GLI DESHEATH PNCLE TIF TIP 6FR sheath. Hemostasis/Sheath Status: Hemostasis was successful using a(n) GameyeeeahSE VASCULAR SURG SYSTEM 6F PROGLIDE. Coronary Angiography Left Coronary System: A catheter was positioned into the Vesse l Ostium under fluoroscopic guidance. Contrast injections were performed using hand injection. Angiogra ms were obtained in multiple views. Right Coronary System: A catheter was positioned into the Vesse l Ostium under fluoroscopic guidance. Contrast injections were performed using hand injection. Angiogra ms were obtained in multiple views. Hemodynamic Impressions General Impressions: Hemodynamic assessm ent demonstrates No systemic hypertension, Left ventricular end diastolic pressure is normal. Hemodynamic Findings Pressures: Baseline: LV pressure 131mmH g, EDP 3. Baseline: AO pressure 131/68mmHg, mean 90. Hemodynamic Pressures-Phase: Baseline Location : LV Pressure s : 131 mmHg Pressure ed : 3 mmHg HR : 82 bpm Hemodynamic Pressures-Phase: Baseline Location : Ao Pressure s : 131 mmHg Pressure d : 68 mmHg Pressure m : 90 mmHg HR : 72 bpm Acute complication: No complicatio ns Contrast: Description Dose Uni t HIS No. Reference No. Serial No. Lot No. Omnipaque 150.000 ml C34 C34 X-Ray: Exam total DAP: 5636.00 cGycm-sq Air Kerma/Exam Total Dose: 516 mGy Ordering Physician: HANG MONSIVAIS DO CCL New Car Make Ready Worker: CARLY WARREN RN Scrub: CORY PEREZ Monitor: DAVID MARTE SONAR TECHNICIAN Metallurgical Lab Technician: JENNIFER MCDANIELS RT(R) Primary Certified Court Interpreter: HANG MONSIVAIS DO Diagnostic Physician Signature: (No Signature Object) Interventional Physician Signature: (No Signature Object) Performing Organization Address City/State/ZIP Code Phon e Number [facility], [place] LAB ONLY-COMPLETE BLOOD COUNT WITH DIFFERENTIAL (07/22/2021 10:44 AM CDT) Pathologist Sig nature WBC 10.4 4.0 - 11.0 K/uL [address] RBC 4.27 (L) 4.40 - 5.[address] M/uL Hemoglobin 13.6 13.5 - 17.[address] g/dL Hematocrit 40.3 40.0 - 50.0 % [address] MCV 94.4 80.0 - 98.[address] MCH 31.9 25.5 - 34.[address] MCHC 33.7 31.5 - 36.[address] g/dL RDW-CV 14.6 11.5 - 15.5 % [address] RDW-SD 51.2 (H) 35.5 - 50.[address] Platelet Count 208 140 - 400 K/uL [address] MPV 9.7 8.5 - 12.[address] Seg Neut Absolute 8.3 (H) 1.8 - 8.0 K/uL [address] Lymphocytes Absolute 0.6 (L) 0.8 - 4.1 K/uL [place] [address] [facility] Monocytes Absolute 1.1 (H) 0.0 - 1.0 K/uL [address] Eosinophils Absolute 0.2 0.0 - 0.7 K/uL [place] [address] [facility] Basophil Absolute 0.1 0.0 - 0.2 K/uL [address] Immature Granulocyte 0.24 (H) 0.00 - 0.06 [place] [address] [facility] Absolute K/uL Neutrophils Abs. 8,300 /uL [address] (Segs and Bands) Neutrophils Percent 79.8 % [address] Lymphocytes Percent 5.3 % [address] Monocytes Percent 10.3 % [address] Immature Granulocyte 2.3 % [address] Percent Eosinophils Percent 1.7 % [address] Basophil Percent 0.6 % [address] Nucleated RBC 0 /[address] Specimen Blood - Blood specimen (specimen) Performing Organization Address [facility] e Number [address] [place] [address] BASIC METABOLIC PANEL (07/22/2021 10:44 AM CDT) Pathologist Sig nature Glucose 92 70 - 99 mg/dL [address] BUN 40 (H) 6 - 22 mg/dL [address] Creatinine 1.23 0.70 - 1.[address] mg/dL BUN/Creatinine Ratio 32.5 (H) 10.0 - 25.[address] Sodium 137 136 - 145 meq/L [address] Potassium 4.0 3.5 - 5.1 meq/L [address] Chloride 104 98 - 109 meq/L [address] CO2 26 20 - 29 meq/L [address] Anion Gap with K 11 6 - 20 meq/L [address] Calcium 9.1 8.5 - 10.[address] mg/dL Age 81 [address] eGFR Non- 57 (L) >=[address] Moroc[place] mL/min/1.73m2 eGFR 69 >=[address] mL/min/1.73m2 Specimen Blood - Blood specimen (specimen) Performing Organization Address [facility] Phon e Number [place] [address] [facility] [address] [place] [address] [place] [address] PTT (07/22/2021 10:44 AM CDT) Pathologist Sig nature APTT 78 (H) 24 - [address] Specimen Blood - Blood specimen (specimen) Performing Organization Address [facility] Phon e Number [place] [address] [facility] [address] [place] [address] [place] [address] PTT (07/22/2021 3:17 AM CDT) Pathologist Sig nature APTT 46 (H) 24 - [address] Specimen Blood - Blood specimen (specimen) Performing Organization Address City/[facility]/ZIP Code Phon e Number [place] [address] [facility] [address] [address] BRAIN NATRIURETIC PEPTIDE (07/22/2021 3:17 AM CDT) Pathologist Sig nature BNP 1,198 (H) 0 - 100 pg/mL [address] Specimen Blood - Blood specimen (specimen) Performing Organization Address [facility] Phon e Number [place] [address] [facility] [address] [address] ECHO ADULT COMPLETE (07/21/2021 4:25 PM CDT) Specimen Narrative Performed At This result has an attachment that is no t available. [facility] Patient: MICHAEL BACON MR#: [id number] Exam Date: 07/21/2021 Transthoracic Echocardiogram [facility] [address] [place] [id number] BP: 144/78 mmHg HR: 88 bpm : 1940 Exam Location: Bedside Height: 73.00 "(185.4 cm) Age: 81 year(s) Patient Room: 808 01 Weight: 150 lbs.(68.04 kg) Gender: Male Patient Status: Inpatient BSA: 1.9 m2 Negative Developer: JEFF ALCANTAR RDCS Reading Physician: HANG CARMONA DO Ordering Physician: CRISTIAN BLEVINS MD Referring Physician: LAMONTE JUNG MD Procedure Indication(s): Chest Pain Examination: TTE Complete 2D(m-mode), Complete Spectral Doppler, Color Doppler Exam Comments Dr. Camrona was notified of the findings at 17:15 on 07/21/2021, The cardiac rhythm is atrial fibrillation Conclusions Left Ventricle: Tihkowsq-hu-tqviihqb increased left vent ricular wall thickness. The ejection fraction is visually estimated to be 60 %. Left Atrium: Markedly dilated left atrium. Mitral Valve: Fydk-ao-nsfwxxjo mitral leaflet thickeni ng. Posterior mitral leaflet calcification is present. There is mitral annular calcification. There is possible flail motion of the mi tral leaflets. Severe mitral regurgitation. Multiple eccentric mitral regurgitant jets. Right Ventricle: Normal right ventricular systolic functi on. Pulmonary artery systolic pressure is measured at 44 mmHg. Comparison Study Comparison Study: No previous echo was available for c omparison Findings Left Ventricle: Normal left ventricular size. Moderate-t o-markedly increased left ventricular wall thickness. Normal left ventricular systolic function. The ejection fraction is visua lly estimated to be 60 %. There are no left ventricular regional wall motion abnormalities. Unable to assess left ventricular diastolic function d ue to abnormal rhythm. Left Atrium: Markedly dilated left atrium. Aortic Valve: The aortic valve is tricuspid. Mild aort ic cuspal thickening. Aortic sclerosis is present. No significant aortic regurgitation. No aortic stenosis. Aorta: The sinus of valsalva is normal in size measuring 37.[address] junction is normal in size measuring 30.0 mm. The ascending aorta is normal in size measuring 37.0 mm. Mitral Valve: Xtsr-sk-hsrlxyjz mitral leaflet thickeni ng. Posterior mitral leaflet calcification is present. There is mitral annular calcification. There is possible flail motion of the mi tral leaflets. Severe mitral regurgitation. Multiple eccentric mitral regurgitant jets. No mitral stenosis. IAS: There is increased thickness of the atri al septum; consistent with lipomatous hypertrophy. No evidence of an atrial shunt by color Doppler. Right Ventricle: Normal right ventricular size. Normal ri ght ventricular systolic function. Normal right ventricular wall thickness. Pulmonary artery systolic pressure is measured at 44 mmHg. Tricuspid valve lateral annulus peak systolic velocity is 12.0 cm/sec. Pulmonary Artery: Mild pulmonary artery hypertension. Right Atrium: Markedly dilated right atrium. Tricuspid Valve: Mild tricuspid leaflet thickening. Gslu-fj-ckuxsflk tr icuspid regurgitation. Pulmonic Valve: Normal pulmonary valve structure. Mild p ulmonary regurgitation. No pulmonary stenosis. IVC: Dilated IVC with minimal respirophasic changes. Pericardium: Trivial pericardial effusion ([place]). There is pericard ial fat. Measurements Left Ventricle Aortic Valve Label Value Normal Value Label Value Normal Value LVDd, 2D 46 mm LVOT Vmax 101 cm/s LVDs, 2D 29.9 mm AV Vmax 113 cm/s IVSd, 2D 14.9 mm LVOTd 22 mm LVPWd, 2D 14.4 mm LVOT VTI 15.8 cm LVEDV, 2D 80 ml LVOT PGmax 4 mmHg LVESV, 2D 35 ml AV Vmean 76 cm/s Cardiac Output 5.28 L/min AV VTI 20.4 cm Cardiac Index 2.78 AV PGmax 5 mmHg L/min/m-sq AV PGmean 3 mmHg FS, 2D 35 % LADY (Vmax) 3.4 cm-sq Right Ventricle AV Vmax, Caliper 113 cm/s Label Value Normal Value Mitral Valve S' Tissue Doppler 12 cm/sec Label Value Normal Value Left Atrium MV E Vmax 113 cm/s Label Value Normal Value MV E/E' lateral 11 LADs Long. 60 mm MV E/E' septal 13.9 LA Volume Index 48.5 ml/m-sq MV Dec Time 149 ms Aorta MV E' septal 8.1 cm/s Label Value Normal Value MV PHT 0.04 s Ao Sinus, 2D 37 mm MVA PHT 5 cm-sq Ao Sinotubular 30 mm MR Reg. Volume 49 ml Ao Asc 37 mm MR Vmax 493 cm/s Heart Rate MR VTI 157 cm Label Value Normal Value MR Defect Area (ERO) 0.3 cm-sq Heart Rate 88 bpm MV E' lateral 10.3 cm/s Tricuspid Valve Label Value Norm al Value TR Vmax 268 cm/s TR Pmax 29 mmHg RA Pressure 15 mmHg RVSP 44 mmHg Pulmonic Valve Label Value Norm al Value PV Vmax 76 cm/s PV PGmax 2 mmHg Electronically signed by HANG CARMONA DO on 07/22 at 09:05 AM (No Signature Object) Procedure Note Interface, Inc Results No Pull Forward - 07/22/2021 9:08 AM CDT Patient: MIHCAEL BACON MR#: [id number] Exam Date: 07/21/2021 Transthoracic Echocardiogram [facility] [address] [place], [place] [id number] BP: 144/78 mmHg HR: 88 bpm : 1940 Exa m Location: Bedside Height: 73.00 "(185.4 cm) Age: 81 year(s) Pat ient Room: 808 01 Weight: 150 lbs.(68.04 kg) Gender: Male Pat ient Status: Inpatient BSA: 1.9 m2 Negative Developer: JEFF ALCANTAR RDCS Reading Physician: HANG AVITIA DO Ordering Physician: CRISTIAN BLEVINS MD Referring Physician: LAMONTE SHABAZZ MD Procedure Indication(s): Chest Pain Examination: TTE Co mplete 2D(m-mode), Complete Spectral Doppler, Color Doppler Exam Comments Dr. Jay avitia was notified of the findings at 17:15 on 07/21/2021, The cardiac rhythm is atrial fibrillation Conclusions Left Ventricle: Oxnlpfsa-bl-olmrtbbd increased left vent ricular wall thickness. The ejection fraction is visually estimated to be 60 %. Left Atrium: Markedly dilated left atrium. Mitral Valve: Azjx-os-qmsjugyu mitral leaflet thickeni ng. Posterior mitral leaflet calcification is present. There is mitral annular calcification. There is possible flail motion of the mi tral leaflets. Severe mitral regurgitation. Multiple eccentric mitral regurgitant jets. Right Ventricle: Normal right ventricular systolic functi on. Pulmonary artery systolic pressure is measured at 44 mmHg. Comparison Study Comparison Study: No previous echo was a vailable for comparison Findings Left Ventricle: Normal left ventricular size. Moderate-t o-markedly increased left ventricular wall thickness. Normal left ventricular systolic function. The ejection fraction is visua lly estimated to be 60 %. There are no left ventricular regional wall motion abnormalities. Unable to assess left ventricular diasto lic function due to abnormal rhythm. Left Atrium: Markedly dilated left atrium. Aortic Valve: The aortic valve is tricuspid. Mild aort ic cuspal thickening. Aortic sclerosis is present. No significant aortic regurgitation. No aortic stenosis. Aorta: The sinus of valsalva is normal in size measuring 37.[address] junction is normal in size measuring 30.0 mm. The ascending aorta is normal in size measur ing 37.0 mm. Mitral Valve: [id number] mitral leaflet thickeni ng. Posterior mitral leaflet calcification is present. There is mitral annular calcification. There is possible flail motion of the mi tral leaflets. Severe mitral regurgitation. Multiple eccentric mitral regurgitant jets. No mitral stenosis. IAS: There is increased thickness of the atri al septum; consistent with lipomatous hypertrophy. No evidence of an atrial shunt by color Doppler. Right Ventricle: Normal right ventricular size. Normal ri ght ventricular systolic function. Normal right ventricular wall thickness. Pulmonary artery systolic pressure is measured at 44 mmHg. Tricuspid valve lateral annulus peak systolic velocity is 12.0 cm/sec. Pulmonary Artery: Mild pulmonary artery hypertension. Right Atrium: Markedly dilated right atrium. Tricuspid Valve: Mild tricuspid leaflet thickening. Mild- to-moderate tricuspid regurgitation. Pulmonic Valve: Normal pulmonary valve structure. Mild p ulmonary regurgitation. No pulmonary stenosis. IVC: Dilated IVC with minimal respirophasic c hanges. Pericardium: Trivial pericardial effusion ([place]). The re is pericardial fat. Measurements Left Ventricle Aortic Valve Label Value Nor mal Value Label Value Normal Value LVDd, 2D 46 mm LVOT Vmax 101 cm/s LVDs, 2D 29.9 mm AV Vmax 113 cm/s IVSd, 2D 14.9 mm LVOTd 22 mm LVPWd, 2D 14.4 mm LVOT VTI 15.8 cm LVEDV, 2D 80 ml LVOT PGmax 4 mmHg LVESV, 2D 35 ml AV Vmean 76 cm/s Cardiac Output 5.28 L/min AV VTI 20.4 cm Cardiac Index 2.78 AV PGmax 5 mmHg L/min/m-sq AV PGmean 3 mmHg FS, 2D 35 % LADY (Vmax) 3.4 cm-sq Right Ventricle AV Vmax, Caliper 113 cm/s Label Value Nor mal Value Mitral Valve S' Tissue Doppler 12 cm/sec Label Value Normal Value Left Atrium MV E Vmax 113 cm/s Label Value Nor mal Value MV E/E' lateral 11 LADs Long. 60 mm MV E/E' septal 13.9 LA Volume Index 48.5 ml/m-sq MV Dec Time 149 ms Aorta MV E' septal 8.1 cm/s Label Value Nor mal Value MV PHT 0.04 s Ao Sinus, 2D 37 mm MVA PHT 5 cm-sq Ao Sinotubular 30 mm MR Reg. Volume 49 ml Ao Asc 37 mm MR Vmax 493 cm/s Heart Rate MR VTI 157 cm Label Value Nor mal Value MR Defect Area (ERO) 0.3 cm-sq Heart Rate 88 bpm MV E' lateral 10.3 cm/s Tricuspid Valve Label Value Nor mal Value TR Vmax 268 cm/s TR Pmax 29 mmHg RA Pressure 15 mmHg RVSP 44 mmHg Pulmonic Valve Label Value Nor mal Value PV Vmax 76 cm/s PV PGmax 2 mmHg (No Signature Object) Performing Organization Address City/State/ZIP Code Phon e Number [facility] [place] PTT (07/21/2021 10:50 AM CDT) Pathologist Sig nature APTT 31 24 - [address] Specimen Blood - Blood specimen (specimen) Performing Organization Address [facility] Phon e Number [place] [id number] [facility] [address] [place] [address], [place] [address] TROPONIN I (07/21/2021 5:09 AM CDT) Pathologist Sig nature Troponin I 0.812 (H) 0.000 - 0.033 ng/mL [place] [address] [facility] Specimen Blood - Blood specimen (specimen) Performing Organization Address [facility] Phon e Number [place] [id number] [facility] [address] [place] [address], [place] [address] TROPONIN I (07/21/2021 12:41 AM CDT) Pathologist Sig nature Troponin I 0.652 (H) 0.000 - 0.033 ng/mL [address] Specimen Blood - Blood specimen (specimen) Performing Organization Address [facility] Phon e Number [place] [id number] [facility] [address] [place] [address], [place] [address] LAB ONLY-COMPLETE BLOOD COUNT WITH DIFFERENTIAL (07/20/2021 9:40 PM CDT) Pathologist Sig nature WBC 7.2 4.0 - 11.0 K/uL [address] RBC 3.63 (L) 4.40 - 5.[address] M/uL Hemoglobin 11.7 (L) 13.5 - 17.[address] g/dL Hematocrit 34.5 (L) 40.0 - 50.0 % [address] MCV 95.0 80.0 - 98.[address] MCH 32.2 25.5 - 34.[address] MCHC 33.9 31.5 - 36.[address] g/dL RDW-CV 14.5 11.5 - 15.5 % [address] RDW-SD 50.6 (H) 35.5 - 50.[address] Platelet Count 215 140 - 400 K/uL [address] MPV 9.5 8.5 - 12.[address] Seg Neut Absolute 5.9 1.8 - 8.0 K/uL [address] Lymphocytes Absolute 0.6 (L) 0.8 - 4.1 K/uL [place] [address] [facility] Monocytes Absolute 0.5 0.0 - 1.0 K/uL [place] [address] [facility] Eosinophils Absolute 0.0 0.0 - 0.7 K/uL [place] [address] [facility] Basophil Absolute 0.0 0.0 - 0.2 K/uL [place] [address] [facility] Immature Granulocyte 0.23 (H) 0.00 - 0.06 [place] [address] [facility] Absolute K/uL Neutrophils Abs. 5,900 /uL [place] [address] [facility] (Segs and Bands) Neutrophils Percent 81.5 % [address] Lymphocytes Percent 7.6 % [address] Monocytes Percent 7.3 % [address] Immature Granulocyte 3.2 % [address] Percent Eosinophils Percent 0.3 % [address] Basophil Percent 0.1 % [address] Nucleated RBC 0 /[address] Specimen Blood - Blood specimen (specimen) Performing Organization Address City/State/ZIP Code Phon e Number [address] [address] COMPREHENSIVE METABOLIC PANEL (07/20/2021 9:40 PM CDT) Pathologist Sig nature Glucose 111 (H) 70 - 99 mg/dL [address] BUN 42 (H) 6 - 22 mg/dL [address] Creatinine 1.18 0.70 - 1.[address] mg/dL BUN/Creatinine Ratio 35.6 (H) 10.0 - 25.[address] Sodium 138 136 - 145 meq/L [address] Potassium 4.1 3.5 - 5.1 meq/L [address] Chloride 108 98 - 109 meq/L [place] [address] [facility] CO2 21 20 - 29 meq/L [address] Anion Gap with K 13 6 - 20 meq/L [address] Calcium 8.1 (L) 8.5 - 10.5 [place] [address] [facility] mg/dL Protein Total 4.6 (L) 6.0 - 8.3 g/dL [address] Albumin 2.7 (L) 3.2 - 4.6 g/dL [address] Alkaline Phosphatase 69 40 - 150 U/L [address] AST - SGOT 15 5 - 34 U/L [address] ALT - SGPT 12 0 - 55 U/L [address] Bilirubin Total 0.6 0.2 - 1.2 mg/dL [address] Corrected Calcium 9.1 8.5 - 10.[address] mg/dL Age [address] eGFR Non- 59 (L) >=[address] Moroccan mL/min/1.73m2 eGFR 72 >=[address] mL/min/1.73m2 Specimen Blood - Blood specimen (specimen) Performing Organization Address City/State/ZIP [facility] Phon e Number [address] [place] [id number] TROPONIN I (07/20/2021 9:40 PM CDT) [facility] Troponin I 0.679 (H) 0.000 - 0.033 ng/mL [address] Specimen Blood - Blood specimen (specimen) Performing Organization Address City/[facility] Phon e Number [address] [place] [phone] documented in this encounter Visit Diagnoses Diagnosis NSTEMI (non-ST elevated myocardial infar ction) ([facility]) - Primary Acute myocardial infarction, subendocard ial infarction, episode of care unspecified Non-rheumatic mitral regurgitation Mitral valve disorders Coronary artery disease involving [place] coronary artery of [place] heart without angina pectoris Coronary artery disease involving [place] heart without angina pectoris, unspecified vessel or lesion type documented in this encounter Discharge Diagnoses Not on filedocumented in this encounter Administered Medications Medication Order MAR Action Action Date Dose Rate Site acetaminophen (TYLENOL) suppository 650 mg 650 mg, Rectal, Every six hours prn, Starting on Sat 1 at 2124, Until Discontinued, fever > (indicate temp), 1 00.5 degrees F, Total dose of acetaminophen from all acetaminophen containing produc ts should not exceed 4 grams (4000 mg) per day. Use rectal suppository if patient not able to yasmani e oral acetaminophen. acetaminophen (TYLENOL) tablet 650 mg Given 07/21/2021 3:07 PM CDT 650 mg 650 mg, Oral, Every four hours prn, Starting on 07/20/21 at 2123, Until Discontinued, mild pain, Use FIRST for mild pain. If inadequate response in 60 minutes, may proceed to next choice option or if no other options, contact provider. Adult patients: Total dose of acetaminophen from all acetaminophen containing products should not exceed 4 grams (4000 mg) per day. Pediatric Patients 0 - 3 months: Maximum of 60 mg/kg/24 hours of acetaminophen. Pediatric Patients older than 3 months: Maximum of 75 mg/kg/24 hours of acetaminophen (Never exceeding 4 grams/day). acetaminophen (TYLENOL) tablet 650 mg Given 07/22/2021 8:46 PM CDT 650 mg 650 mg, Oral, Every six hours prn, Starting on 07/20/21 at 4, Until Discontinued, fever > (indicate temp), 100.5 degrees F, Adult patients: Total dose of acetaminophen from all acetaminophen containing products should not exceed 4 grams (4000 mg) per day. Pediatric Patients 0 - 3 months: Maximum of 60 mg/kg/24 hours of acetaminophen. Pediatric Patients older than 3 months: Maximum of 75 mg/kg/24 hours of acetaminophen (Never exceeding 4 grams/day). apixaban (ELIQUIS) tablet 5 mg Given 07/24/2021 8:36 AM CDT 5 mg 5 mg, Oral, Two times a day, First dose on Thu07/22/21 at 2100, Until Discontinued Given 07/23/2021 10:49 PM CDT 5 mg Given 07/23/2021 8:24 AM CDT 5 mg aspirin enteric coated tablet 81 mg Given 07/24/2021 8:38 AM CDT 81 mg 81 mg, Oral, Daily, 7 doses, First dose (after last modification) on Thu07/23/21 at 0900, Last dose on Thu07/29/21 at 0900, Post-Procedure (Cath), Tablet should be swallowed whole and not be divided, crushed or chewed. Given 07/23/2021 8:25 AM CDT 81 mg bisacodyl (DULCOLAX) suppository 10 mg 10 mg, Rectal, One time a day prn, Starting on Sat at 2124, Until Discontinued, constipation, Use SECOND for constipatio n. If patient cannot take oral medications, use first for constipation. calcium carbonate (TUMS) chewable tablet 1,000 mg 1,000 mg, Oral, Every four hours prn, Starting on 07/20/21 at 4, Until Discontinued, other (Specify), acid reflux, Use FIRST for acid reflux. If ineffective after 60 minutes, may proceed to next garcia ce option or, if no other options, contact provider. clopidogrel (PLAVIX) tablet 75 mg Given 07/24/2021 8:37 AM CDT 75 mg 75 mg, Oral, Daily, 365 doses, First dose on Thu07/23/21 at 0900, Last dose on Thu07/22/22 at 0900, Post-Procedure (Cath) Given 07/23/2021 8:24 AM CDT 75 mg docusate sodium (THEREVAC-SB MINI;ENEMEE Z MINI) 283 MG enema 1 enema 1 enema, Rectal, One time a day prn, Starting on Sat at 2123, Until Discontinued, constipation, Use THIRD for constipation - if no BM 8 hours after dulcolax suppository. If patient cannot take oral medi cations, use second for constipation. famotidine (PEPCID) tablet 20 mg 20 mg, Oral, Two times a day prn, Starting on Sat 07/05 03/25 at 4, Until Discontinued, other (Specify), acid reflux, Use SECOND for acid reflux if inadequate response to calcium carbonate (Tums) after 60 minutes. If inadequate response to famotidine (Pepcid) in 60 mi nutes, may proceed to next choice option or, if no other options, contact provider. fentaNYL 100 mcg/2 mL preservative free injection solution 25 mcg 25 mcg, IV, Every two hours prn, Starting on Sat 07/20 at 4, Until Discontinued, severe pain, 0.5 mL, Use S ECOND For pain Scale 7 or greater or pain not relieved by medications for Pain Scale 4-6. ferrous sulfate (65 mg FE per 325 mg tablet) Given 8:38 AM CDT 325 mg tablet 325 mg 325 mg, Oral, DAILY, First dose on Thu07/21/21 at 0900, Until Discontinued Given 07/23/2021 8:25 AM CDT 325 mg Given 07/22/2021 8:20 AM CDT 325 mg flumazenil (ROMAZICON) IV solution 0.3 m g 0.3 mg, IV, PRN per parameter, Starting on Thu 1 at 0910, Until Discontinued, other (Specify), for rever maria eugenia of oversedation due to benzodiazepines, 3 mL, Pre-procedure ([facility]), pr ocedural area to release, Administer dose over 30 seconds. gabapentin (NEURONTIN) capsule 300 mg Given 07/24/2021 8:37 AM CDT 300 mg 300 mg, Oral, Two times a day, First dose on 07/20/21 at 2145, Until Discontinued Given 07/23/2021 10:49 PM CDT 300 mg Given 07/23/2021 8:24 AM CDT 300 mg hydrALAZINE (APRESOLINE) injection solut ion 10 mg 10 mg, IV, Every six hours prn, Starting on Mon at 1255, Until Discontinued, specified parameter, to ke ep SBP less than 150 mmHg, 0.5 mL, Repeat in 20 minutes if needed. If not successful after two d oses, contact the interventional cardiology team. labetalol (NORMODYNE;TRANDATE) IV solution 10 Given 1:24 PM CDT 10 mg mg 10 mg, IV, Every two hours prn, Starting on 07/21/21 at 1158, Until Discontinued, blood pressure, sbp>=160 OR dbp>=100 Hold if hr<=55, 20 mL Given 07/22/2021 4:24 AM CDT 10 mg lidocaine 1%-EPINEPHrine 1:200,000 (XYLO DEB-EPINEPHRINE) injection solution 1 mL 1 mL, Subcutaneous, PRN per parameter, Starting on 07/22/21 at 1328, Until Discontinued, other (Specify), oozing at groin puncture site, 30 mL, Post-Procedure (Cath), Contact physician/YOANA prior to i njecting. If oozing at groin puncture site occurs, designated nursing staff may ass ess and inject. Clean site with Hibiclens sponge. Using aseptic technique, inject 1 mL into the tissue surrounding the tract of the groin puncture site in a circular fashion to a max dose of 10 mL. Aspirate prior to each injection. losartan tablet 100 mg Given 07/24/2021 8:38 AM CDT 100 mg 100 mg, Oral, DAILY, First dose on Thu07/21/21 at 0900, Until Discontinued Given 07/23/2021 8:25 AM CDT 100 mg Given 07/22/2021 8:20 AM CDT 100 mg melatonin tablet 3 mg 3 mg, Oral, Bedtime prn, Starting on 07/20/21 at 2 124, Until Discontinued, other (Specify), insomnia, Use FIRST for insomnia. If inadequate response in 60 minutes, may proceed to next choice option or, if no o ther options, contact provider. metoprolol tartrate (LOPRESSOR) tablet 7 5 mg Given 07/24/2021 8:37 AM CDT 75 mg 75 mg, Oral, Two times a day, First dose (after last modification) on Thu07/23/21 at 0900, Until Discontinued Given 07/23/2021 10:49 PM CDT 75 mg Given 07/23/2021 8:24 AM CDT 75 mg nalOXone (NARCAN) injection solution (vi al) 0.2 mg 0.2 mg, Injection, Every two minutes prn , Starting on 07/20/21 at 2121, Until Discontinued, other (Specify), opioid induced respirat ory depression - PARTIAL reversal, 0.5 mL, PARTIAL REVERSAL/RESPI RATORY DEPRESSION If respiratory rate less than 8/minute - call rapid response and administer (un til respiratory rate increases to 10/minute). Give IV (preferred), IM or S UBQ nalOXone (NARCAN) injection solution (vi al) 0.4 mg 0.4 mg, Injection, Every two minutes prn , Starting on 07/20/21 at 2121, Until Discontinued, other (Specify), opioid in duced respiratory arrest - FULL reversal, 1 mL, FULL REVERSAL/RESPIRATORY ARREST If patient is not breathing - call CODE BLUE and administer. Give IV (preferred), IM or SUBQ nitroglycerin (NITROSTAT) sublingual tab let 0.4 mg 0.4 mg, Sublingual, Every five minutes p rn, Starting on 07/22/21 at 1328, Until Discontinued, chest pain, Post-Procedure (Cath), At onset of chest pain, dissolve one tablet under tongue. May repeat ever y 5 minutes for 3 doses. Do not crush or chew. omeprazole (priLOSEC) capsule 20 mg Given 07/24/2021 8:38 AM CDT 20 mg 20 mg, Oral, Every morning, First dose on 07/21/21 at 0900, Until Discontinued, Swallow whole; do not chew or crush. Capsule may be opened and contents mixed with 1 tablespoon of applesauce. Swallow immediately with a glass of cool water; mixture should not be chewed, crushed, warmed, or saved for future use. Given 07/23/2021 8:24 AM CDT 20 mg Given 07/22/2021 8:20 AM CDT 20 mg ondansetron (ZOFRAN ODT) dispersible tab let 4 mg 4 mg, Oral, Four times a day prn, Starting on Sat 07/05 03/25 at 4, Until Discontinued, nausea, vomiting, Use FIRS T for nausea / vomiting. If ineffective after 30 minutes use ondansetron IV ondansetron (ZOFRAN) injection solution 4 mg 4 mg, IV, Four times a day prn, Starting on Sat at 4, Until Discontinued, nausea, vomiting, 2 mL, Use SECOND for n ausea / vomiting. If ineffective after 30 minutes and ondansetron ODT used, call physician for alternative. If preference is to further dilute for IV administration: First draw up patient-specific dose, then dilute to 10 mL with 0. 9% sodium chloride. oxyCODONE (OXY-IR) tablet 5 mg Given 07/23/2021 8:29 AM CDT 5 mg 5 mg, Oral, Every four hours prn, Starting on 07/20/21 at 4, Until Discontinued, moderate pain, for pain scale 4 to 6 or pain not relieved by medications for pain scale 1 - 3 Given 07/22/2021 3:20 PM CDT 5 mg Given 07/21/2021 9:23 PM CDT 5 mg oxyCODONE (OXY-IR) tablet 5 mg Given 07/24/2021 8:37 AM CDT 5 mg 5 mg, Oral, Every six hours prn, Starting on 07/20/21 at 2126, Until Discontinued, severe pain predniSONE tablet 1 mg Given 07/24/2021 8:38 AM CDT 1 mg 1 mg, Oral, DAILY, First dose on 07/21/21 at 0900, Until Discontinued Given 07/23/2021 8:25 AM CDT 1 mg Given 07/22/2021 8:21 AM CDT 1 mg predniSONE tablet 5 mg Given 07/24/2021 8:37 AM CDT 5 mg 5 mg, Oral, DAILY, First dose on 07/21/21 at 0900, Until Discontinued Given 07/23/2021 8:24 AM CDT 5 mg Given 07/22/2021 8:20 AM CDT 5 mg senna-docusate sodium (SENOKOT-S;PERICOL ZAN) tablet 2 tablet 2 tablet, Oral, Two times a day prn, Starting on Sat 1 at 2124, Until Discontinued, constipation, Use FIRST fo r constipation unless patient cannot take oral medications. sodium chloride 0.9% flush (adult) 10 mL Given 07/24/2021 8:55 AM CDT 10 mL 10 mL, IV, Two times a day and prn, First dose on 07/20/21 at 2125, Until Discontinued, 10 mL, Flush PIV line as scheduled and as often as necessary before and after meds. Use a push / pause technique when flushing to create turbulence. Given 07/23/2021 10:49 PM CDT 10 mL Given 07/23/2021 8:25 AM CDT 10 mL umeclidinium-vilanterol (ANORO ELLIPTA) Given 07/24/2021 10:50 A M CDT 1 puff 62.5-25 mcg/Inh inhaler 1 puff 1 puff, Inhalation, Daily, First dose on 07/21/21 at 0900, Until Discontinued, Formulary Substitute. With first dose, inform patient that this medication is being used in place of Stiolto Respimat while inpatient. Given 07/23/2021 10:01 AM CDT 1 puff Given 07/22/2021 2:16 PM CDT 1 puff Medication Order MAR Action Action Date Dose Rate Site apixaban (ELIQUIS) tablet 5 mg Given 07/21/2021 8:40 AM CDT 5 mg 5 mg, Oral, Two times a day, First dose (after last reorder) on 07/20/21 at 2240, Until Discontinued Given 07/20/2021 11:01 PM CDT 5 mg aspirin tablet 325 mg Given 07/22/2021 10:40 AM CDT 325 mg 325 mg, Oral, One time, 1 dose, On Thu07/22/21 at 1030, Prep Orders (Cath) if inpatient - floor RN to release, Patient to receive 325 mg aspirin prior to procedure If patient currently taking aspirin at home and has not taken their dose today prior to procedure: hold this dose and administer 325 mg clopidogrel (PLAVIX) tablet 75-600 mg Given 07/22/2021 1:00 PM CDT 600 mg 75-600 mg, Oral, Administer in Cardiac Gang Boss, 1 dose, On Thu07/22/21 at 1255, Under the direction of the provider in CCL. Do not give on the floor. fentaNYL 100 mcg/2 mL preservative free Given 07/23/2021 10:51 A M CDT 75 mcg injection solution 0-100 mcg 0-100 mcg, IV, One time, 1 dose, On Thu07/23/21 at 1010, 2 mL, Pre-procedure ([facility]), procedural area to release, For pain during procedure fentaNYL 100 mcg/2 mL preservative free Given 07/22/2021 12:14 P M CDT 25 mcg injection solution 25-300 mcg 25-300 mcg, IV, PRN per parameter, Starting on Thu07/22/21 at 1028, Until Thu07/22/21 at 1348, other (Specify), sedation for cardiac catheterization, 6 mL, Pre-Procedure (Cath), procedural area to release, For sedation under direction provider privileged to perform sedation. Do not give on the floor. hEParin (50 units/mL) in Rate Verify 07/22/2021 7:58 AM 14 Units/ kg/hr 19.1 mL/hr D5W premixed IV solution CDT ([facility] LOW PTT. Goal Range 70-89.9) 0-50 Units/kg/hr 68.2 kg (0-68.2 mL/hr), IV, at 0-68.2 mL/hr, Titrate, Starting on Thu07/21/21 at 2100, Until Thu07/22/21 at 1301, 500 mL, Go to the right side of the screen, below "Associated Flowsheet Rows" header. Use "Initial Dose" section to start heparin infusion. Use "Adjustment Calculator" section to titrate the heparin infusion 6 hours after initiation. AFTER PROCEDURE ONLY: When restarting infusion after it's been held for a procedure, restart infusion at 12 units/kg/hr unless infusion was running at less than 12 units/kg/hr prior to procedure, then restart at that rate. Run at this rate for 6 hours. Recheck aPTT in 6 hours and use the "adjustment calculator" to titrate the heparin infusion. Call unit pharmacist with questions. Rate Change 07/22/2021 4:18 AM CDT 14 Units/kg/hr 19.1 mL/hr New Bag 07/21/2021 9:11 PM CDT 12 Units/kg/hr 16.4 mL/hr heparin (porcine) injection solution Given 07/22/2021 12:47 PM C DT 2,000 Units 0-12,000 Units 0-12,000 Units, IV, Administer in Cardiac Gang Boss, 1 dose, On Thu07/22/21 at 1235, 12 mL, Under the direction of the provider in CCL. Do not give on the floor. Given 07/22/2021 12:37 PM CDT 2,000 Units Given 07/22/2021 12:31 PM CDT 4,000 Units hydroCHLOROthiazide tablet 25 mg Given 07/21/2021 8:40 AM CDT 25 mg 25 mg, Oral, DAILY, First dose on Thu07/21/21 at 0900, Until Discontinued iohexol (OMNIPAQUE) 350 mg/mL solution 150 Given 07/22/2021 12:59 PM CDT 150 mL mL 150 mL, Intra-arterial, One time, 1 dose, On Thu07/22/21 at 1300, 150 mL lidocaine PF (XYLOCAINE-MPF) 1 % preservative Given 12:19 PM CDT 10 mL free injection solution 0-40 mL 0-40 mL, Subcutaneous, Administer in Cardiac Gang Boss, 1 dose, On Thu07/22/21 at 1220, 60 mL, Given by provider in CCL. Do not give on the floor. lidocaine viscous (XYLOCAINE) 2 % solution Given 07/23/2021 10:4 5 AM CDT 10 mL 5-15 mL 5-15 mL, Mouth/Throat, Pre-op, 1 dose, On Thu07/23/21 at 1010, 15 mL, Pre-procedure ([facility]), procedural area to release, Swish and gargle to throat prior to procedure. If the lidocaine (300 mg/15 mL = 20 mg/mL) is to be swallowed by the patient, the maximum recommended is 4 mg/kg with a max dose of 300 mg. metoprolol tartrate (LOPRESSOR) half-tablet Given 07/05 8:40 AM CDT 12.5 mg 12.5 mg 12.5 mg, Oral, Two times a day, First dose on Thu07/20/21 at 2200, Until Discontinued Given 07/20/2021 10:37 PM CDT 12.5 mg metoprolol tartrate (LOPRESSOR) tablet 5 0 mg Given 07/22/2021 8:46 PM CDT 50 mg 50 mg, Oral, Two times a day, First dose (after last modification) on Thu07/21/21 at 2100, Until Discontinued Given 07/22/2021 8:20 AM CDT 50 mg Given 07/21/2021 9:25 PM CDT 50 mg midazolam (VERSED) injection solution 0- 8 mg Given 07/23/2021 10:51 AM CDT 2 mg 0-8 mg, IV, Pre-op, 1 dose, On Thu07/23/21 at 1010, 8 mL, Pre-procedure ([facility]), procedural area to release, For sedation during procedure; Do not give on floor midazolam (VERSED) injection solution 0.5-10 Given 12:14 PM CDT 1 mg mg 0.5-10 mg, IV, PRN per parameter, Starting on Thu07/22/21 at 1028, Until Thu07/22/21 at 1348, other (Specify), sedation for cardiac catheterization, 10 mL, Pre-Procedure (Cath), procedural area to release, For sedation under direction provider privileged to perform sedation Do not give on the floor sodium chloride 0.9% IV solution New Bag 07/21/2021 8:49 AM CDT 100 mL/hr IV, at 100 mL/hr, Continuous, Starting on 07/20/21 at 2125, Until Thu07/21/21 at 1017, 1,000 mL New Bag 07/20/2021 10:45 PM CDT 100 mL/hr sodium chloride 0.9% IV solution New Bag 07/23/2021 10:40 AM CDT 75 mL/hr IV, at 75 mL/hr, Continuous, Starting on Thu07/22/21 at 1030, Until Thu07/23/21 at 1115, 1,000 mL, Prep Orders (Cath) if inpatient - floor RN to release, If this is a TILT procedure, start IV fluid at TKO (10 mL/hr) before transfer to the rd lab technician New Bag 07/22/2021 10:19 PM CDT 75 mL/hr Rate Change 07/22/2021 3:05 PM CDT 75 mL/hr sodium chloride 0.9% IV solution New Bag 07/22/2021 1:37 PM CDT 150 mL/hr IV, at 150 mL/hr, Continuous, Starting on Thu07/22/21 at 1400, Until Thu07/22/21 at 1559, 1,000 mL, Post-Procedure (Cath) documented in this encounter Active and Recently Administered Medications Times are shown in CDT. Medication Order 07/22/2021 07/23/2021 07/24/2021 apixaban (ELIQUIS) tablet 5 mg 2045 (Given - Provider: Selene Obrien RN) 0824 (Given - Provider: Zenobia Ackerman RN)2249 (Given - Provider: Radha Lomeli RN) 0836 (Given - Provider: Zenobia Ackerman RN)2100 (Due) 5 mg, Oral, Two times a day, First dose on Thu07/22/21 at 2100, Until Discontinued aspirin enteric coated tablet 81 mg(Linked Group 1) 0825 (Given - Provider: Zenobia Ackerman RN) 0838 (Given - Provider: Karly Allen) 81 mg, Oral, Daily, 7 doses, First dose (after last modification) on Thu07/23/21 at 0900, Last dose on Thu07/29/21 at 0900, Post-Procedure (Cath), Tablet should be swallowed whole and not be divided, crushed or chewed. aspirin tablet 325 mg (COMPLETED) 1040 (Given - Provider: Zenobia Ackerman RN) 325 mg, Oral, One time, 1 dose, On Thu at 1030, Prep Orders (Cath) if inpatient - floor RN to release, Patient to receive 325 mg aspirin prior to procedure If patient currently taking aspirin at home and has not taken their dose to day prior to procedure: hold this dose and administer 325 mg clopidogrel (PLAVIX) tablet 75 mg 0824 (Given - Provider: Zenobia Ackerman RN) 0837 (Given - Provider: Zenobia Ackerman RN) 75 mg, Oral, Daily, 365 doses, First dos e on Thu07/23/21 at 0900, Last dose on Thu07/22/22 at 0900, Post-Procedure (Cath) clopidogrel (PLAVIX) tablet 75-600 mg (COMPLETED) 1300 (Given - Provider: Carly Warren, CAROLYN) 75-600 mg, Oral, Administer in Cardiac [facility], 1 dose, On Thu07/22/21 at 1255, Under the direction of the provider in CCL. Do not give on the floor. fentaNYL 100 mcg/2 mL preservative free injection solution 0-100 mcg (COMPLETED) 1051 (Given - Provider: Naomi Garay RN ) 0-100 mcg, IV, One time, 1 dose, On Thu07/23/21 at 1010, 2 mL, Pre-procedure ([facility]), procedural area to release, For pain during procedure ferrous sulfate (65 mg FE per 325 mg tablet) tablet 32 5 mg 0820 (Given - Provider: Zenobia Ackerman RN) 0825 (Given - Provider: Zenobia Ackerman RN) 0838 (Given - Provider: Zenobia Ackerman RN) 325 mg, Oral, DAILY, First dose on Thu07/21/21 at 0900, Until D iscontinued gabapentin (NEURONTIN) capsule 300 mg 0820 (Given - Pr ovider: Zenobia Ackerman RN)2046 (Given - Provider: Selene Obrien RN) 0824 (Given - Provider: Zenobia Ackerman, CAROLYN)2249 (Given - Provider: Radha Lomeli RN) 0837 (Given - Provider: Zenobia Ackerman RN)2100 (Due) 300 mg, Oral, Two times a day, First dos e on Thu07/20/21 at 2145, Until Discontinued heparin (porcine) injection solution 0-12,000 Units (C OMPLETED) 1231 (Given - Provider: Carly Warren RN - Comment: per order)1237 (Given - Provider: Carly Warren RN - Comment: per order)1247 (Given - Provider: Carly Warren RN - Comment: per order) 0-12,000 Units, IV, Administer in Cardia c Gang Boss, 1 dose, On Thu07/22/21 at 1235, 12 mL, Under the direction of the provider in CCL. Do not give on the floor. iohexol (OMNIPAQUE) 350 mg/mL solution 150 mL (COMPLET ED) 1259 (Given - Provider: Madi Gilliland MD)1344 (Canceled Entry - Provider: Zenobia Ackerman RN) 150 mL, Intra-arterial, One time, 1 dose, On Thu07/22/21 at 130 0, 150 mL lidocaine PF (XYLOCAINE-MPF) 1 % preserv ative free injection solution 0-40 mL (COMPLETED) 1219 (Given - Provider: Madi Gilliland MD - Comment: right g roin) 0-40 mL, Subcutaneous, Administer in [facility] Boss, 1 dose, On Thu07/22/21 at 1220, 60 mL, Given by provider in CCL. Do not give on the floor. lidocaine viscous (XYLOCAINE) 2 % solution 5-15 mL (COMPLETE D) 1045 (Given - Provider: Naomi Garay RN) 5-15 mL, Mouth/Throat, Pre-op, 1 dose, O n 07/23/21 at 1010, 15 mL, Pre- procedure ([facility]), procedural area to release, Swish and gargle to throat prior to procedure. If the lidocaine (300 mg/15 mL = 20 mg/mL) is to be swallowed by the patient, the maximum recommended is 4 mg/kg with a max dose of 300 mg. losartan tablet 100 mg 0820 (Given - Provider: Zenobia Ackerman RN) 0825 (Given - Provider: Zenobia Ackerman RN) 0838 (Given - Provider: Karly Allen) 100 mg, Oral, DAILY, First dose on Thu07/21/21 at 0900, Until D iscontinued metoprolol tartrate (LOPRESSOR) tablet 50 mg (CANCELED ) 08 (Given - Provider: Zenobia Ackerman RN)2045 (Given - Provider: Selene Obrien RN) 50 mg, Oral, Two times a day, First dose (after last modification) on Thu07/21/21 at 2100, Until Discontinued metoprolol tartrate (LOPRESSOR) tablet 75 mg 0824 (Given - Provider: Zenobia Ackerman RN)2248 (Given - Provider: Radha Lomeli RN) 0837 (Given - Provider: Zenobia Ackerman RN)2100 (Due) 75 mg, Oral, Two times a day, First dose (after last modification) on Thu07/23/21 at 0900, Until Discontinued midazolam (VERSED) injection solution 0-8 mg (COMPLETED) 1051 (Given - Provider: Naomi Garay, CAROLYN) 0-8 mg, IV, Pre-op, 1 dose, On 07/23 at 1010, 8 mL, Pre-procedure ([facility]), procedural area to release, For sedation during procedure; Do not give on floor omeprazole (priLOSEC) capsule 20 mg 08 (Given - Provider: Zenobia Ackerman RN) 0824 (Given - Provider: Zenobia Ackerman RN) 0838 (Given - Provider: Zenobia Ackerman RN) 20 mg, Oral, Every morning, First dose o n Thu07/21/21 at 0900, Until Discontinued, Swallow whole; do not chew or crush. Capsule may be opened and contents mixed with 1 tablespoon of applesauce. Swallow immediately with a glass of cool water; mixture should not be chewed, crushed, warmed, or saved for future use. predniSONE tablet 1 mg 0821 (Given - Provider: Zenobia Ackerman RN) 0825 (Given - Provider: Zenobia Ackerman RN) 0838 (Given - Provider: Karly Allen) 1 mg, Oral, DAILY, First dose on Thu07/21/21 at 0900, Until Dis continued predniSONE tablet 5 mg 0820 (Given - Provider: Zenobia Ackerman RN) 0824 (Given - Provider: Zenobia Ackerman RN) 0837 (Given - Provider: Karly Allen) 5 mg, Oral, DAILY, First dose on Thu07/21/21 at 0900, Until Dis continued sodium chloride 0.9% flush (adult) 10 mL 0814 (Not Giv en - Provider: Zenobia Ackerman RN - Reason: Other (See Comment) - Comment: duplicate)2047 (Given - Provider: Selene Obrien RN) 0825 (Given - Provider: Karly Allen N)2249 (Given - Provider: Radha Lomeli RN) 0855 (Given - Provider: Zenobia Ackerman RN)2100 (Due) 10 mL, IV, Two times a day and prn, Firs t dose on 07/20/21 at 2125, Until Discontinued, 10 mL, Flush PIV line as scheduled and as often as necessary before and after meds. Use a push / pause technique when flushing to create turbulence. umeclidinium-vilanterol (ANORO ELLIPTA) 62.5-25 mcg/In h inhaler 1 puff 1416 (Given - Provider: Bianca Norris, CLINIC MANAGER) 1001 (Given - Provider: Anuja Gregory, AUDIO INSTALLER STUDENT) 1050 (Given - Provider: Thania Duarte, SHAYNE) 1 puff, Inhalation, Daily, First dose on 07/21/21 at 0900, Until Discontinued, Formulary Substitute. With first dose, inform patient that this medication is being used in place of Stiolto Respimat while inpatient. Medication Order 07/22/2021 07/23/2021 07/24/2021 hEParin (50 units/mL) in D5W premixed IV solution (SMF LOW PTT. Goal Range 70- 89.9) (CANCELED) 0418 (Rate Change - Provider: Selene torres RN)0758 (Rate Verify - Provider: Zenobia Ackerman RN)1145 (Paused - Provider: Zenobia Ackerman RN - Comment: angio)1304 (Stopped - Provider: Zenobia Ackerman RN) 0-50 Units/kg/hr 68.2 kg (0-68.2 mL/hr), IV, at 0-68.2 mL/hr, Titrate, Starting on 07/21/21 at 2100, Until 07/22/21 at 1301, 500 mL, Go to the right side of the screen, below "Associated Flow sheet Rows" header. Use "Initial Dose" section to start heparin infusion. Use "Adjustment Calculator" section to titrate the heparin infusion 6 hours after initiation. AFTER PROCEDURE ONLY: When res tarting infusion after it's been held fo r a procedure, restart infusion at 12 units/kg/hr unless infusion was running at less than 12 units/kg/hr prior to procedure, then restart at that rate. Run at th is rate for 6 hours. Recheck aPTT in 6 h ours and use the "adjustment calculator" to titrate the heparin infusion. Call unit pharmacist with questions. sodium chloride 0.9% IV solution (CANCELED) 1235 (Not Given - Provider: Zenobia Ackerman RN - Reason: Other (See Comment) - Comment: for angio)1505 (Rate Change - Provider: Zenobia Ackerman RN)2219 (New Bag - Provider: Selene Obrien RN) 1040 (New Bag - Provider: Naomi Garay RN - Comment: 200 ml)1110 (Stopped - Provider: Naomi Garay RN) IV, at 75 mL/hr, Continuous, Starting on Thu07/22/21 at 1030, Until Tu07/23/21 at 1115, 1,000 mL, Prep Orders (Cath) if inpatient - floor RN to release, If this is a TILT procedure, start IV fluid at TKO (10 mL/hr) before transfer to the rd lab technician sodium chloride 0.9% IV solution () 1337 (New B ag - Provider: Zenobia Ackerman RN)1500 (Stopped - Provider: Zenobia Ackerman RN) IV, at 150 mL/hr, Continuous, Starting o n Thu07/22/21 at 1400, Until Thu07/22/21 at 1559, 1,000 mL, Post-Procedure (Cath) Medication Order 07/22/2021 07/23/2021 07/24/2021 acetaminophen (TYLENOL) suppository 650 mg(Linked Grou p 2) 2045 (See Alternative - Provider: Selene Obrien RN) 650 mg, Rectal, Every six hours prn, Sta rting on 07/20/21 at 2124, Until Discontinued, fever > (indicate temp), 100.5 degrees F, Total dose of acetaminophen from all acetaminophen containing prod ucts should not exceed 4 grams (4000 mg) per day. Use rectal suppository if patient not able to take oral acetaminophen. acetaminophen (TYLENOL) tablet 650 mg 2029 (Canceled E ntry - Provider: Selene Obrien RN) 650 mg, Oral, Every four hours prn, Star ting on 07/20/21 at 2122, Until Discontinued, mild pain, Use FIRST for mild pain. If inadequate response in 60 minutes, may proceed to next choice option or i f no other options, contact provider. A dult patients: Total dose of acetaminophen from all acetaminophen containing products should not exceed 4 grams (4000 mg) per day. Pediatric Patients 0 - 3 months : Maximum of 60 mg/kg/24 hours of aceta minophen. Pediatric Patients older than 3 months: Maximum of 75 mg/kg/24 hours of acetaminophen (Never exceeding 4 grams/day). acetaminophen (TYLENOL) tablet 650 mg(Linked Group 2) 2045 (Given - Provider: Selene Obrien RN - Comment: T= 101F) 650 mg, Oral, Every six hours prn, Start ing on 07/20/21 at 2123, Until Discontinued, fever > (indicate temp), 100.5 degrees F, Adult patients: Total dose of acetaminophen from all acetaminophen c ontaining products should not exceed 4 g quita (4000 mg) per day. Pediatric Patients 0 - 3 months: Maximum of 60 mg/kg/24 hours of acetaminophen. Pediatric Patients older than 3 months: Maximum of 75 mg /kg/24 hours of acetaminophen (Never exceeding 4 grams/day). albuterol (PROVENTIL) (2.5 mg/3mL) 0.083% inhalation soln 2.5 mg 2.5 mg, Nebulization, Every four hours p rn, Starting on 07/20/21 at 2124, Until Discontinued, shortness of breath, wheezing, cough, 3 mL, Formulary Substitute. With first dose, inform patient that t his medication is being used in place of albuterol inhaler while inpatient. bisacodyl (DULCOLAX) suppository 10 mg(Linked Group 3) 10 mg, Rectal, One time a day prn, Start ing on 07/20/21 at 2123, Until Discontinued, constipation, Use SECOND for constipation. If patient cannot take oral medications, use first for constipation. calcium carbonate (TUMS) chewable tablet 1,000 mg 1,000 mg, Oral, Every four hours prn, St arting on 07/20/21 at 2123, Until Discontinued, other (Specify), acid reflux, Use FIRST for acid reflux. If ineffective after 60 minutes, may proceed to nex t choice option or, if no other options, contact provider. docusate sodium (THEREVAC-SB MINI;ENEMEE Z MINI) 283 MG enema 1 enema(Linked Group 3) 1 enema, Rectal, One time a day prn, Sta rting on 07/20/21 at 2123, Until Discontinued, constipation, Use THIRD for constipation - if no BM 8 hours after dulcolax suppository. If patient cannot take oral medications, use second for constipation. famotidine (PEPCID) tablet 20 mg 20 mg, Oral, Two times a day prn, Starti ng on 07/20/21 at 2123, Until Discontinued, other (Specify), acid reflux, Use SECOND for acid reflux if inadequate response to calcium carbonate (Tums) after 60 minutes. If inadequate response to famotidine (Pepcid) in 60 minutes, may proceed to next choice option or, if no other options, contact provider. fentaNYL 100 mcg/2 mL preservative free injection solution 25 mc g 25 mcg, IV, Every two hours prn, Startin g on 07/20/21 at 2123, Until Discontinued, severe pain, 0.5 mL, Use SECOND For pain Scale 7 or greater or pain not relieved by medications for Pain Scale 4-6. fentaNYL 100 mcg/2 mL preservative free injection solution 25-300 mcg (CANCELED) 1214 (Given - Provider: Carly Warren RN - Comment: per M D order) 25-300 mcg, IV, PRN per parameter, Start ing on Thu07/22/21 at 1028, Until Thu07/22/21 at 1348, other (Specify), sedation for cardiac catheterization, 6 mL, Pre-Procedure (Cath), procedural area to rel ease, For sedation under direction provi thony privileged to perform sedation. Do not give on the floor. flumazenil (ROMAZICON) IV solution 0.3 mg 1124 (Not Indicated - Provider: Naomi Garay RN) 0.3 mg, IV, PRN per parameter, Starting on Thu07/23/21 at 0910, Until Discontinued, other (Specify), for reversal of oversedation due to benzodiazepines, 3 mL, Pre-procedure ([facility]), procedura l area to release, Administer dose over 30 seconds. hydrALAZINE (APRESOLINE) injection solution 10 mg 10 mg, IV, Every six hours prn, Starting on 07/22/21 at 1255, Until Discontinued, specified parameter, to keep SBP less than 150 mmHg, 0.5 mL, Repeat in 20 minutes if needed. If not successful after two doses, contact the interventional cardiology team. labetalol (NORMODYNE;TRANDATE) IV solution 10 mg 0424 (Given - Provider: Selene Obrien, RN)1324 (Given - Provider: Zenobia Ackerman RN) 10 mg, IV, Every two hours prn, Starting on Thu07/21/21 at 1158, Until Discontinued, blood pressure, sbp>=160 OR dbp>=100 Hold if hr<=55, 20 mL lidocaine 1%-EPINEPHrine 1:200,000 (XYLO DEB-EPINEPHRINE) injection solution 1 mL(Linked Group 4) 1 mL, Subcutaneous, PRN per parameter, S tarting on 07/22/21 at 1328, Until Discontinued, other (Specify), oozing at groin puncture site, 30 mL, Post- Procedure (Cath), Contact physician/YOANA prior to injecting. If oozing at groin puncture s ite occurs, designated nursing staff may assess and inject. Clean site with Hibiclens sponge. Using aseptic technique, inject 1 mL into the tissue surrounding the tract of the groin puncture site in a c ircular fashion to a max dose of 10 mL. Aspirate prior to each injection. melatonin tablet 3 mg 3 mg, Oral, Bedtime prn, Starting on 07/20/21 at 2124, Until Discontinued, other (Specify), insomnia, Use FIRST for insomnia. If inadequate response in 60 minutes, may proceed to next choice option or, if no other options, contact provider. midazolam (VERSED) injection solution 0.5-10 mg (CANCE LED) 1214 (Given - Provider: Carly Warren RN - Comment: per MD order) 0.5-10 mg, IV, PRN per parameter, Starti ng on 07/22/21 at 1028, Until Thu07/22/21 at 1348, other (Specify), sedation for cardiac catheterization, 10 mL, Pre-Procedure (Cath), procedural area to rel ease, For sedation under direction provi thony privileged to perform sedation Do not give on the floor nalOXone (NARCAN) injection solution (vial) 0.2 mg 1124 (Not Indicated - Provider: Naomi Garay RN) 0.2 mg, Injection, Every two minutes prn , Starting on 07/20/21 at 2121, Until Discontinued, other (Specify), opioid induced respiratory depression - PARTIAL reversal, 0.5 mL, PARTIAL REVERSAL/RESPIR ATORY DEPRESSION If respiratory rate les s than 8/minute - call rapid response and administer (until respiratory rate increases to 10/minute). Give IV (preferred), IM or SUBQ nalOXone (NARCAN) injection solution (vial) 0.4 mg 1124 (Not Indicated - Provider: Naomi Garay RN) 0.4 mg, Injection, Every two minutes prn , Starting on 07/20/21 at 2121, Until Discontinued, other (Specify), opioid induced respiratory arrest - FULL reversal, 1 mL, FULL REVERSAL/RESPIRATORY ARREST If patient is not breathing - call CODE BLUE and administer. Give IV (preferred), IM or SUBQ nitroglycerin (NITROSTAT) sublingual tablet 0.4 mg 0.4 mg, Sublingual, Every five minutes p rn, Starting on 07/22/21 at 1328, Until Discontinued, chest pain, Post-Procedure (Cath), At onset of chest pain, dissolve one tablet under tongue. May repeat every 5 minutes for 3 doses. Do not crush or chew. ondansetron (ZOFRAN ODT) dispersible tablet 4 mg(Linked Group 5) 4 mg, Oral, Four times a day prn, Starti ng on 07/20/21 at 2124, Until Discontinued, nausea, vomiting, Use FIRST for nausea / vomiting. If ineffective after 30 minutes use ondansetron IV ondansetron (ZOFRAN) injection solution 4 mg(Linked Group 5) 4 mg, IV, Four times a day prn, Starting on 07/20/21 at 2124, Until Discontinued, nausea, vomiting, 2 mL, Use SECOND for nausea / vomiting. If ineffective after 30 minutes and ondansetron ODT used, call physician for alternative. If pref erence is to further dilute for IV administration: First draw up patient-specific dose, then dilute to 10 mL with 0.9% sodium chloride. oxyCODONE (OXY-IR) tablet 5 mg 1520 (Given - Provider: Zenobia Ackerman RN) 0829 (Given - Provider: Zenobia Ackerman RN) 0854 (Not Given - Provider: Zenobia paez RN - Reason: Other (See Comment) - Comment: other oxy order given) 5 mg, Oral, Every four hours prn, Starti ng on 07/20/21 at 2124, Until Discontinued, moderate pain, for pain scale 4 to 6 or pain not relieved by medications for pain scale 1 - 3 oxyCODONE (OXY-IR) tablet 5 mg 0 837 (Given - Provider: Zenobia Ackerman RN) 5 mg, Oral, Every six hours prn, Startin g on 07/20/21 at 2126, Until Discontinued, severe pain senna-docusate sodium (SENOKOT-S;PERICOLACE) tablet 2 tablet(Vero morris Group 3) 2 tablet, Oral, Two times a day prn, Sta rting on 07/20/21 at 2124, Until Discontinued, constipation, Use FIRST for constipation unless patient cannot take oral medications. Order Group 1: aspirin enteric coated tablet 81 mgJump to med 81 mg, Oral, Daily, 7 doses, First dose (after last modification) on Thu07/23/21 at 0900, Last dose on Thu07/29/21 at 0900, Post-Procedure (Cath)
Tablet should be swallowed whole and not be divided, crushed or chewed.
And PHARMACIST: Discontinue previous dose of Aspirin the patient was taking prior to procedure () STAT, ONCE, On Thu07/22/21 at 1400, For 1 occurrence, PHARMACIST: Discontinue previous dose of Aspirin the patient was taking prior to procedure, Post- Procedure (Cath) Group 2: acetaminophen (TYLENOL) tablet 650 mgJump to med 650 mg, Oral, Every six hours prn, Start ing on 07/20/21 at 2124, Until Discontinued, fever > (indicate temp), 100.5 degrees F
Adult patients: Total dose of acetaminophen from all zan taminophen containing products should no t exceed 4 grams (4000 mg) per day. Pediatric Patients 0 - 3 months: Maximum of 60 mg/kg/24 hours of acetaminophen. Pediatric Patients older than 3 months: &nbs p;Maximum of 75 mg/kg/24 hours of acetaminophen (Never exceeding 4 grams/day).
Or acetaminophen (TYLENOL) suppository 650 mgJump to med 650 mg, Rectal, Every six hours prn, Sta rting on 07/20/21 at 2124, Until Discontinued, fever > (indicate temp), 100.5 degrees F
Total dose of acetaminophen from all acetaminophen con taining products should not exceed 4 gra ms (4000 mg) per day. Use rectal suppository if patient not able to take oral acetaminophen.
Group 3: senna-docusate sodium (SENOKOT-S;PERICOLACE) tablet 2 tabletJump to med 2 tablet, Oral, Two times a day prn, Sta rting on 07/20/21 at 2124, Until Discontinued, constipation
Use FIRST for constipation unless patient cannot take oral medications.
And bisacodyl (DULCOLAX) suppository 10 mgJump to med 10 mg, Rectal, One time a day prn, Start ing on 07/20/21 at 2124, Until Discontinued, constipation
Use SECOND for constipation. If patient cannot take oral medications, use first for constipation.
And docusate sodium (THEREVAC-SB MINI;ENEMEEZ MINI) 283 MG enema 1 enemaJump to med 1 enema, Rectal, One time a day prn, Sta rting on 07/20/21 at 2124, Until Discontinued, constipation
Use THIRD for constipation - if no BM 8 hours after dulcolax suppository. If patient winnie ot take oral medications, use second for constipation.
Group 4: CONTACT PHYSICIAN / YOANA prior to Lidocaine / EPINEPHrine injection for oozing Routine, CONTINUOUS NRSG, First occurren ce on 07/22/21 at 1330, If OOZING at groin puncture site occurs, designated nursing staff may assess and inject: (a) Clean site with Hibiclens sponge (b) Usin g aseptic technique, inject 1 mL into th e tissue surrounding the tract of the groin puncture site in a circular fashion to a max dose of 10 mL (c) Aspirate prior to each injection (d) Do not inject if b lood is aspirated (e) Following the proc edure, hold pressure for 5-10 mins (f) Apply a new dressing (g) Extend bedrest per order (h) Chart procedure in a clinical note, Post-Procedure (Cath) And lidocaine 1%-EPINEPHrine 1:200,000 (XYLOCAINE-EPINEPHRINE) injection solution 1 mLJump to med 1 mL, Subcutaneous, PRN per parameter, S tarting on 07/22/21 at 1328, Until Discontinued, other (Specify), oozing at groin puncture site, 30 mL, Post- Procedure (Cath)
Contact physician/YOANA p rior to injecting. If oozing at groin pu ncture site occurs, designated nursing staff may assess and inject. Clean site with Hibiclens sponge. Using aseptic technique, inject 1 mL into the tissue surroun ding the tract of the groin puncture sit e in a circular fashion to a max dose of 10 mL. Aspirate prior to each injection.
Group 5: ondansetron (ZOFRAN ODT) dispersible tablet 4 mgJump to med 4 mg, Oral, Four times a day prn, Starti ng on 07/20/21 at 2124, Until Discontinued, nausea, vomiting
Use FIRST for nausea / vomiting. If ineffective after 30 minutes use ondansetron IV
And ondansetron (ZOFRAN) injection solution 4 mgJump to med 4 mg, IV, Four times a day prn, Starting on 07/20/21 at 2124, Until Discontinued, nausea, vomiting, 2 mL
Use SECOND for nausea / vomiting. If ineffective after 30 minutes and onda nsetron ODT used, call physician for alt ernative. If preference is to further dilute for IV administration: First draw up patient-specific dose, then dilute to 10 mL with 0.9% sodium chloride.
documented in this encounter
== END 2021-07-20 18:20 ==
LOC: FB.ED 10:16
DX: I21.4 Non-ST elevation (NSTEMI) myocardial infarction (principal); I48.91 Unspecified atrial fibrillation; I25.10 Atherosclerotic heart disease of native coronary artery without angina pectoris; I10 Essential (primary) hypertension; I25.2 Old myocardial infarction; K21.9 Gastro-esophageal reflux disease without esophagitis; Z88.8 Allergy status to other drugs, medicaments and biological substances; Z79.899 Other long term (current) drug therapy; Z20.822 Contact with and (suspected) exposure to COVID-19
CPT/HCPCS: 36415; 71045; 80053; 83735; 84484; 85025; 93005; 99285-25; A9270-GY; J7030; J7040; U0002

== ENCOUNTER 2022-06-30 14:19 | Inpatient (IN) | payer MEDICARE, OTHER ==
[2022-06-30] MEDS ORDERED: Sodium Chloride 0.9% 10 ML Syringe FLUSH PRN (14:45)
[2022-06-30] MEDS ORDERED: Acetaminophen 500 MG Tab PO ONE (14:47)
[2022-06-30] MEDS ORDERED: Sodium Chloride 0.9% 1,000 ML IV SCH ×2 (15:00→18:15)
[2022-06-30 15:20] LABS: ESTIMATED GFR 40 mL/min (>60)
[2022-06-30 17:16] LABS: CORONAVIRUS COVID-19 NAA NEGATIVE (NEGATIVE)
[2022-06-30] MEDS ORDERED: Ondansetron 4 MG/2 ML SDV IV PRN (18:02)
[2022-06-30] MEDS ORDERED: Albuterol 8 GM Inhaler INH PRN (18:08)
[2022-06-30] MEDS ORDERED: Nitroglycerin 0.4 MG Tab.SL SL PRN (18:08)
[2022-06-30] MEDS: Piperacillin/Tazobactam 3.375 GM in Sodium Chloride 0.9% 50 ML IV SCH (18:22)
[2022-06-30] MEDS: VANCOmycin 1 GM/200 ML 1 GM in Premix Bag 1 BAG IV SCH (19:01)
[2022-06-30] MEDS: Acetaminophen 650 MG Tab.ER PO PRN (23:39)
[2022-06-30] MEDS: Famotidine 20 MG Tab PO SCH (23:39)
[2022-06-30] MEDS: Apixaban 2.5 MG Tab PO SCH (23:39)
[2022-07-01] MEDS: Piperacillin/Tazobactam 3.375 GM in Sodium Chloride 0.9% 50 ML IV SCH ×4 (00:49→18:15)
[2022-07-01] MEDS: VANCOmycin 1 GM/200 ML 1 GM in Premix Bag 1 BAG IV SCH (06:54)
[2022-07-01 07:18] LABS: ESTIMATED GFR 40 mL/min (>60)
[2022-07-01] MEDS ORDERED: Ferrous Sulfate 325 MG Tab PO SCH (09:00)
[2022-07-01] MEDS ORDERED: Allopurinol 100 MG Tab PO SCH (09:00)
[2022-07-01] MEDS ORDERED: Calcitriol 0.25 MCG Cap PO SCH (09:00)
[2022-07-01] MEDS: Acetaminophen 650 MG Tab.ER PO PRN ×2 (09:10→21:11)
[2022-07-01] MEDS ORDERED: Furosemide 40 MG/4 ML VIAL IVPUSH ONE (09:14)
[2022-07-01] MEDS: Apixaban 2.5 MG Tab PO SCH ×2 (09:36→21:07)
[2022-07-01] MEDS: Clopidogrel 75 MG Tab PO SCH (09:36)
[2022-07-01] MEDS: predniSONE 5 MG Tab PO SCH (09:36)
[2022-07-01] MEDS: Losartan 100 MG Tab PO SCH (09:36)
[2022-07-01] MEDS: Sodium Chloride 0.9% 1,000 ML IV SCH (14:38)
[2022-07-01] MEDS: Famotidine 20 MG Tab PO SCH (21:07)
[2022-07-01] MEDS: Ferrous Sulfate 325 MG Tab PO SCH (21:07)
[2022-07-02] MEDS: Piperacillin/Tazobactam 3.375 GM in Sodium Chloride 0.9% 50 ML IV SCH ×2 (00:13→06:07)
[2022-07-02] MEDS: Sodium Chloride 0.9% 1,000 ML IV SCH ×2 (04:31→18:55)
[2022-07-02 07:05] LABS: ESTIMATED GFR 37 mL/min (>60)
[2022-07-02] MEDS: Clopidogrel 75 MG Tab PO SCH (09:19)
[2022-07-02] MEDS: Allopurinol 300 MG Tab PO SCH (09:19)
[2022-07-02] MEDS: Losartan 100 MG Tab PO SCH (09:19)
[2022-07-02] MEDS: predniSONE 5 MG Tab PO SCH (09:19)
[2022-07-02] MEDS: Apixaban 2.5 MG Tab PO SCH ×2 (09:19→20:39)
[2022-07-02] MEDS: Sulfamethoxazole/Trimethoprim 800-160 MG Tab PO SCH ×2 (09:20→20:39)
[2022-07-02] MEDS: Furosemide 40 MG/4 ML VIAL IVPUSH SCH ×2 (09:20→14:04)
[2022-07-02] MEDS ORDERED: Metoprolol Succinate 25 MG Tab.ER PO ONE (18:22)
[2022-07-02] MEDS: Ferrous Sulfate 325 MG Tab PO SCH (20:38)
[2022-07-02] MEDS: Famotidine 20 MG Tab PO SCH (20:38)
[2022-07-03 08:12] LABS: ESTIMATED GFR 40 mL/min (>60)
[2022-07-03] MEDS: Furosemide 40 MG/4 ML VIAL IVPUSH SCH (09:07)
[2022-07-03] MEDS: Losartan 100 MG Tab PO SCH (09:09)
[2022-07-03] MEDS: Allopurinol 300 MG Tab PO SCH (09:09)
[2022-07-03] MEDS: Sulfamethoxazole/Trimethoprim 800-160 MG Tab PO SCH (09:10)
[2022-07-03] MEDS: Clopidogrel 75 MG Tab PO SCH (09:10)
[2022-07-03] MEDS: Apixaban 2.5 MG Tab PO SCH (09:10)
[2022-07-03] MEDS: predniSONE 5 MG Tab PO SCH (09:10)
== END 2022-07-03 09:40 | disposition home or self-care (01) | DRG 871 ==
LOC: FB.ED 14:19 → FB.MS 18:03
PROVIDERS: ADMIT Student in an Organized Health Care Education/Training Program; ATTEND Student in an Organized Health Care Education/Training Program
DX: L03.119 Cellulitis of unspecified part of limb (principal); E86.0 Dehydration; A41.9 Sepsis, unspecified organism; I21.4 Non-ST elevation (NSTEMI) myocardial infarction; L03.115 Cellulitis of right lower limb; L03.114 Cellulitis of left upper limb; R65.20 Severe sepsis without septic shock; J44.9 Chronic obstructive pulmonary disease, unspecified; N18.32 Chronic kidney disease, stage 3b; D63.1 Anemia in chronic kidney disease; I25.10 Atherosclerotic heart disease of native coronary artery without angina pectoris; M1A.9XX0 Chronic gout, unspecified, without tophus (tophi); K57.90 Diverticulosis of intestine, part unspecified, without perforation or abscess without bleeding; I48.91 Unspecified atrial fibrillation; I12.9 Hypertensive chronic kidney disease with stage 1 through stage 4 chronic kidney disease, or unspecified chronic kidney disease; E21.3 Hyperparathyroidism, unspecified; E78.5 Hyperlipidemia, unspecified; Z79.02 Long term (current) use of antithrombotics/antiplatelets; N40.0 Benign prostatic hyperplasia without lower urinary tract symptoms; I34.0 Nonrheumatic mitral (valve) insufficiency; M35.3 Polymyalgia rheumatica; E66.9 Obesity, unspecified; I50.9 Heart failure, unspecified; I95.9 Hypotension, unspecified; Z20.822 Contact with and (suspected) exposure to COVID-19; H91.90 Unspecified hearing loss, unspecified ear; E78.00 Pure hypercholesterolemia, unspecified; K21.9 Gastro-esophageal reflux disease without esophagitis; M19.90 Unspecified osteoarthritis, unspecified site; Z96.611 Presence of right artificial shoulder joint; Z96.612 Presence of left artificial shoulder joint; Z79.52 Long term (current) use of systemic steroids; Z79.01 Long term (current) use of anticoagulants; Z99.81 Dependence on supplemental oxygen; Z79.899 Other long term (current) drug therapy; Z88.8 Allergy status to other drugs, medicaments and biological substances; I25.2 Old myocardial infarction; Z95.5 Presence of coronary angioplasty implant and graft; Z98.1 Arthrodesis status; Z87.891 Personal history of nicotine dependence; Z68.22 Body mass index [BMI] 22.0-22.9, adult
CPT/HCPCS: 0240U; 36415; 71045; 80048; 80053; 80202; 81001; 83605; 83880; 84484; 85025; 86140; 87040; 93005; 96361; 96365; 99285-25; A9270-GY; J1940; J2543; J3370; J3490; J7030; J7050; J7512

== ENCOUNTER 2022-08-11 12:00 | Inpatient (IN) | payer MEDICARE, OTHER ==
[2022-08-11] MEDS ORDERED: Ondansetron 4 MG/2 ML SDV IV PRN (12:06)
[2022-08-11] MEDS ORDERED: Ampicillin/Sulbactam Na 1.5 GM in Sodium Chloride 0.9% 50 ML IV SCH (13:00)
[2022-08-11 13:33] LABS: ESTIMATED GFR 25 mL/min (>60)
[2022-08-11] MEDS: Ampicillin/Sulbactam Na 1.5 GM in Sodium Chloride 0.9% 50 ML IV SCH ×2 (13:42→21:00)
[2022-08-11] MEDS: Sodium Chloride 0.9% 10 ML Syringe FLUSH PRN (13:51)
[2022-08-11] MEDS: Acetaminophen 325 MG Tab PO PRN ×2 (13:58→18:11)
[2022-08-11] MEDS: Sodium Chloride 0.9% 1,000 ML IV SCH ×2 (14:00→20:10)
[2022-08-11] MEDS ORDERED: Sodium Chloride 0.9% 1,000 ML IV SCH (17:00)
[2022-08-11] MEDS ORDERED: VANCOmycin 1 GM/200 ML 200 ML IV ONE (18:00)
[2022-08-11] MEDS ORDERED: Sodium Chloride 0.9% 1,000 ML IV ONE (22:52)
[2022-08-12] MEDS ORDERED: DOPamine/Dextrose 5%-Water 400 MG/250 ML BAG ONE (00:15)
[2022-08-12] MEDS ORDERED: DOPamine/Dextrose 5%-Water 400 MG/250 ML BAG IV SCH (00:15)
[2022-08-12] MEDS: Sodium Chloride 0.9% 1,000 ML IV SCH ×2 (04:15→17:33)
[2022-08-12] MEDS: Ampicillin/Sulbactam Na 1.5 GM in Sodium Chloride 0.9% 50 ML IV SCH (04:35)
[2022-08-12 06:34] LABS: ESTIMATED GFR 25 mL/min (>60)
[2022-08-12] MEDS: Acetaminophen 325 MG Tab PO PRN (08:26)
[2022-08-12] MEDS ORDERED: VANCOmycin 1 GM/200 ML 200 ML IV ONE (09:00)
[2022-08-12] MEDS: Sodium Chloride 0.9% 10 ML Syringe FLUSH PRN (11:20)
[2022-08-12] MEDS: Ampicillin/Sulbactam Na 3 GM in Sodium Chloride 0.9% 100 ML IV SCH (13:14)
[2022-08-13] MEDS: Ampicillin/Sulbactam Na 3 GM in Sodium Chloride 0.9% 100 ML IV SCH (00:16)
[2022-08-13] MEDS: Sodium Chloride 0.9% 1,000 ML IV SCH ×3 (00:16→14:51)
[2022-08-13] MEDS: Acetaminophen 325 MG Tab PO PRN ×2 (08:17→17:31)
[2022-08-13 08:38] LABS: ESTIMATED GFR 23 mL/min (>60)
[2022-08-13] MEDS ORDERED: Levofloxacin/Dextrose 5%-Water 150 ML IV ONE (09:00)
[2022-08-13] MEDS: Enoxaparin 30 MG/0.3 ML Syringe SUBCUT SCH (10:16)
[2022-08-13] MEDS: Piperacillin/Tazobactam 3.375 GM in Sodium Chloride 0.9% 50 ML IV SCH ×3 (11:04→23:18)
[2022-08-13] MEDS: VANCOmycin 1 GM/200 ML 200 ML IV SCH (11:41)
[2022-08-14] MEDS: Sodium Chloride 0.9% 1,000 ML IV SCH (04:25)
[2022-08-14] MEDS: Piperacillin/Tazobactam 3.375 GM in Sodium Chloride 0.9% 50 ML IV SCH ×4 (05:31→22:42)
[2022-08-14 06:56] LABS: ESTIMATED GFR 24 mL/min (>60)
[2022-08-14] MEDS: Enoxaparin 30 MG/0.3 ML Syringe SUBCUT SCH (09:32)
[2022-08-14] MEDS: Acetaminophen 325 MG Tab PO PRN ×2 (09:36→16:58)
[2022-08-14] MEDS ORDERED: Sodium Chloride 0.9% 1,000 ML IV SCH (10:00)
[2022-08-14] MEDS ORDERED: Furosemide 40 MG/4 ML VIAL IVPUSH STA (13:44)
[2022-08-14] MEDS ORDERED: Furosemide 20 MG/2 ML VIAL IVPUSH ONE (19:26)
[2022-08-14] MEDS: Sodium Chloride 0.9% 10 ML Syringe FLUSH PRN (20:18)
[2022-08-15] MEDS: VANCOmycin 1 GM/200 ML 200 ML IV SCH (00:23)
[2022-08-15] MEDS: Acetaminophen 325 MG Tab PO PRN ×3 (01:57→14:31)
[2022-08-15] MEDS: Sodium Chloride 0.9% 10 ML Syringe FLUSH PRN ×5 (05:19→23:18)
[2022-08-15] MEDS: Piperacillin/Tazobactam 3.375 GM in Sodium Chloride 0.9% 50 ML IV SCH ×4 (05:19→22:06)
[2022-08-15 06:51] LABS: ESTIMATED GFR 23 mL/min (>60)
[2022-08-15] MEDS ORDERED: Levofloxacin/Dextrose 5%-Water 100 ML IV SCH (09:00)
[2022-08-15] MEDS ORDERED: Ferrous Sulfate 325 MG Tab PO SCH (09:00)
[2022-08-15] MEDS ORDERED: Torsemide 20 MG Tab PO SCH (09:00)
[2022-08-15] MEDS: Enoxaparin 30 MG/0.3 ML Syringe SUBCUT SCH (09:32)
[2022-08-15] MEDS ORDERED: Nitroglycerin 0.4 MG Tab.SL SL PRN (11:40)
[2022-08-15] MEDS ORDERED: Albuterol 8 GM Inhaler INH PRN (11:40)
[2022-08-15] MEDS ORDERED: Saccharomyces Boulardii (Probiotic) 250 MG Cap PO SCH (21:00)
[2022-08-15] MEDS ORDERED: Famotidine 20 MG Tab PO SCH (21:00)
[2022-08-15] MEDS ORDERED: Metoprolol Tartrate 50 MG Tab PO SCH (21:00)
[2022-08-15] MEDS ORDERED: EPINEPHrine 1:10,000 1 MG/10 ML Syringe IVPUSH ONE ×3 (23:05→23:18)
[2022-08-15 23:57] LABS: ESTIMATED GFR 22 mL/min (>60)
[2022-08-16] MEDS ORDERED: EPINEPHrine 1:10,000 1 MG/10 ML Syringe IVPUSH ONE (00:35)
[2022-08-16] MEDS ORDERED: Calcitriol 0.25 MCG Cap PO SCH (09:00)
[2022-08-16] MEDS ORDERED: Tamsulosin 0.4 MG Cap.ER PO SCH (09:00)
[2022-08-16] MEDS ORDERED: predniSONE 5 MG Tab PO SCH (09:00)
[2022-08-16] MEDS ORDERED: Allopurinol 300 MG Tab PO SCH (09:00)
[2022-08-16] MEDS ORDERED: Clopidogrel 75 MG Tab PO SCH (09:00)
[2022-08-16] MEDS ORDERED: Apixaban 2.5 MG Tab PO SCH (09:00)
[2022-08-16] MEDS ORDERED: Amoxicillin/Clavulanate K 500-125 MG Tab PO SCH (09:00)
[2022-08-17] MEDS ORDERED: Levofloxacin 750 MG Tab PO SCH (09:00)
== END 2022-08-15 23:20 | disposition expired | DRG 871 ==
LOC: UNDOADMIN 12:00 → FB.MS 12:00 → UNDOADMIN 08-12 00:10 → FB.MS 08-12 00:39 → FB.ICU 08-12 00:39 → FB.MS 08-14 09:52 → UNDOADMIN 08-14 09:52 → FB.ICU 08-14 09:52 → FB.MS 08-14 09:53 → FB.ICU 08-14 09:53
PROVIDERS: ADMIT Family Medicine; ATTEND Family Medicine
DX: A41.9 Sepsis, unspecified organism (principal); J18.9 Pneumonia, unspecified organism; R65.21 Severe sepsis with septic shock; L03.115 Cellulitis of right lower limb; L03.116 Cellulitis of left lower limb; I13.0 Hypertensive heart and chronic kidney disease with heart failure and stage 1 through stage 4 chronic kidney disease, or unspecified chronic kidney disease; I48.20 Chronic atrial fibrillation, unspecified; Z51.5 Encounter for palliative care; D63.1 Anemia in chronic kidney disease; I25.10 Atherosclerotic heart disease of native coronary artery without angina pectoris; I50.9 Heart failure, unspecified; I46.9 Cardiac arrest, cause unspecified; N18.32 Chronic kidney disease, stage 3b; J44.9 Chronic obstructive pulmonary disease, unspecified; K21.9 Gastro-esophageal reflux disease without esophagitis; M1A.9XX0 Chronic gout, unspecified, without tophus (tophi); I34.0 Nonrheumatic mitral (valve) insufficiency; E86.0 Dehydration; H91.90 Unspecified hearing loss, unspecified ear; E78.00 Pure hypercholesterolemia, unspecified; R32 Unspecified urinary incontinence; M19.90 Unspecified osteoarthritis, unspecified site; Z96.611 Presence of right artificial shoulder joint; Z96.612 Presence of left artificial shoulder joint; Z98.1 Arthrodesis status; Z88.8 Allergy status to other drugs, medicaments and biological substances; Z79.01 Long term (current) use of anticoagulants; Z95.5 Presence of coronary angioplasty implant and graft; Z79.52 Long term (current) use of systemic steroids; Z79.02 Long term (current) use of antithrombotics/antiplatelets; Z79.899 Other long term (current) drug therapy; I25.2 Old myocardial infarction; Z87.891 Personal history of nicotine dependence; M35.3 Polymyalgia rheumatica; E21.3 Hyperparathyroidism, unspecified
CPT/HCPCS: 36410; 36415; 51798; 71045; 80048; 80053; 80202; 82085; 82550; 83605; 83880; 84484; 85025; 86140; 87040; 93306; A9270-GY; J0171; J0295; J1265; J1650; J1940; J1956; J2543; J3370; J3490; J7030